=== PATIENT | female | born 1940 | race Caucasian/White ===

== ENCOUNTER 2016-07-28 15:33 | Emergency (ER) | payer MEDICARE ==
[2016-07-28 15:53] VITALS: BP 177/88
--- NOTE | 2016-07-28 16:27 | UC ---
Lower Extremity/Ankle HPI - HPI Summary HPI Summary: 27 DAYS OF RLE PAIN. HAS SEEN PCP DR. VASQUEZ AND NEUROSURG DR. GARAY. MRI L- SPINE 07/25 SHOWED MILD DDD AND OA. PT IS VERY ANXIOUS ABOUT PERSISTENT PAIN AND IS CONCERNED ABOUT DVT. DENIES FEVER, SOB, CP, NAUSEA. - History of Current Complaint Chief Complaint: UCLowerExtremity Stated Complaint: LEG PAIN Time Seen by Provider: 07/28/16 15:45 Hx Obtained From: Patient, Family/Starter Cup Powder Mixer - Onset/Duration: Gradual Onset, Lasting Weeks, Still Present Severity Initially: Moderate Severity Currently: Moderate Pain Intensity: 5 Pain Scale Used: 0-10 Numeric Aggravating Factor(s): Standing, Ambulation Alleviating Factor(s): Rest Able to Bear Weight: Yes - Allergies/Home Medications Allergies/Adverse Reactions: Allergies Allergy/AdvReac Type Severity Reaction Status Date / Time Glipizide Allergy Unknown Verified 07/28/16 15:54 Reaction Details Iodinated Diagnostic Agents Allergy Swelling Verified 07/28/16 15:54 Of Face,Lips,& Throat Pantoprazole [From Protonix] Allergy Unknown Verified 07/28/16 15:54 Reaction Details Pneumococcal Polysaccharides Allergy Unknown Verified 07/28/16 15:54 [From Pneumovax] Reaction Details Sulfa Antibiotics Allergy See Comment Verified 07/28/16 15:54 Terconazole Allergy Rash Verified 07/28/16 15:54 Metformin AdvReac Diarrhea Verified 07/28/16 15:54 Home Medications: Home Medications Hydrocodone/APAP 5/300 (NF) [Vicodin 5 MG/300 MG(NF)] 2 tab PO Q6H PRN 07/28/16 [History Confirmed 07/28/16] PMH/Surg Hx/FS Hx/Imm Hx Endocrine History Of: Reports: Diabetes, Thyroid Disease, Hypothyroidism Cardiovascular History Of: Reports: Hypertension Denies: Pacemaker/ICD GI/ History Of: Denies: Renal Disease Cancer History Of: Denies: Breast Cancer - Surgical History Surgical History: Yes Surgery Procedure, Year, and Place: HYSTERECTOMY 1988. cholecystectomy. OVARIAN CYSY 1968. BILATERAL CATARACTS PRIOR TO TRANSPLANTS. 2 CORNEAL TRANSPLANTS 2013-[place] PER DR DESHPANDE - Family History Known Family History: Negative: Blood Disorder - NO FAM H/O DVT - Social History Alcohol Use: None Substance Use Type: None Smoking Status (MU): Never Smoked Tobacco Review of Systems Constitutional: Negative Skin: Negative Respiratory: Negative Cardiovascular: Negative Gastrointestinal: Negative Musculoskeletal: Other: - RIGHT LOW BACK/BUTTOCK PAIN All Other Systems Reviewed And Are Negative: Yes Physical Exam Triage Information Reviewed: Yes Appearance: Well-Appearing, No Pain Distress, Well-Nourished Vital Signs: Initial Vital Signs Temp 97.2 F 07/28/16 15:47 Pulse 91 07/28/16 15:47 Resp 20 07/28/16 15:47 BP 177/88 07/28/16 15:47 Pulse Ox 99 07/28/16 15:47 Vital Signs Reviewed: Yes Eyes: Positive: Conjunctiva Clear ENT: Positive: Hearing grossly normal Neck: Positive: Supple Respiratory Exam: Normal Cardiovascular Exam: Normal Abdomen Description: Positive: Soft Musculoskeletal: Positive: ROM Intact, No Edema, Other: - POS RIGHT STRAIGHT LEG RAISE. POS HOMANS RLE. CALF CIRCUMFERENCE: RIGHT 33.5CM, LEFT 35CM. NO CALF TENDERNESS. LOWER EXTREMITY VARICOSITIES PRESENT Neurological: Positive: Alert Psychological: Positive: Age Appropriate Behavior Skin: Negative: rashes Lower Extremity Course/Dx - Course Course Of Treatment: PT IS EXTREMELY ANXIOUS ABOUT POSSIBILITY OF DVT AND WOULD LIKE AN US TO RULE THIS OUT. TO ER FOR FURTHER EVAL. - Differential Dx/Diagnosis Provider Diagnoses: RLE PAIN - Physician Notifications Discussed Patient Care With: DR. ISRAEL HENDERSON Time Discussed With Above Provider: 16:41 - TO [facility] [place] [facility] BY PRIVATE CAR Discharge - Discharge Plan Condition: Stable Disposition: AGAINST MEDICAL ADVICE Referrals: Jass Vasquez MD [Medical Doctor] -
== END 2016-07-28 16:43 | disposition left against medical advice (07) ==
LOC: UCEAST 15:33
DX: M79.604 Pain in right leg (principal); M54.5 Low back pain; E11.9 Type 2 diabetes mellitus without complications; E03.9 Hypothyroidism, unspecified; I10 Essential (primary) hypertension; Z90.710 Acquired absence of both cervix and uterus; Z90.49 Acquired absence of other specified parts of digestive tract; Z98.42 Cataract extraction status, left eye; Z98.41 Cataract extraction status, right eye; Z96.1 Presence of intraocular lens; Z88.2 Allergy status to sulfonamides; Z88.8 Allergy status to other drugs, medicaments and biological substances
CPT/HCPCS: 99212; G0463

== ENCOUNTER → 2016-07-28 17:09 | Emergency (ER) | payer MEDICARE ==
--- NOTE | 2016-07-28 19:37 | RAD ---
HISTORY: Right leg pain COMPARISONS: None relevant TECHNIQUE: Multiple transverse and longitudinal ultrasound images were obtained of the right lower extremity from the level of the common femoral vein inferiorly through to the infrapopliteal veins using grayscale, color Doppler, and spectral Doppler imaging with and without compression and with augmentation. Comparison images were obtained of the contralateral common femoral vein. FINDINGS: VEINS: The venous system of the right lower extremity is compressible throughout its course, with normal flow on color Doppler imaging and normal response to augmentation on spectral Doppler imaging. SOFT TISSUES: Unremarkable. OTHER FINDINGS: None. IMPRESSION: NO RIGHT LOWER EXTREMITY DEEP VEIN THROMBOSIS
[2016-07-28 20:21] VITALS: BP 144/90
--- NOTE | 2016-09-22 21:12 | ED ---
Lower Extremity - HPI Summary HPI Summary: Pt here w/ Rt leg pain. Denies injury. Nothing makes this better or worse. No skin changes. Was seen at and sent here for vascular study to r/o DVT. No h/ o previous. Denies chest pain, SOB, bloody cough, fatigue, back pain, increased heart rate, fever. She does report chronic back pain issues - follows w/ PCP. - History of Current Complaint Chief Complaint: EDExtremityLower Stated Complaint: POSSIBLE DVT RT LEG Time Seen by Provider: 07/28/16 18:58 Hx Obtained From: Patient Pain Intensity: 6 - Allergies/Home Medications Allergies/Adverse Reactions: Allergies Allergy/AdvReac Type Severity Reaction Status Date / Time Glipizide Allergy Unknown Verified 08/29/16 18:02 Reaction Details Iodinated Diagnostic Agents Allergy Swelling Verified 08/29/16 18:02 Of Face,Lips,& Throat Pantoprazole [From Protonix] Allergy Unknown Verified 08/29/16 18:02 Reaction Details Sulfa Antibiotics Allergy See Comment Verified 08/29/16 18:02 Terconazole Allergy Rash Verified 08/29/16 18:02 Metformin AdvReac Diarrhea Verified 08/29/16 18:02 PMH/Surg Hx/FS Hx/Imm Hx Previously Healthy: Yes Endocrine/Hematology History: Reports: Hx Diabetes, Hx Thyroid Disease Denies: Hx Anticoagulant Therapy, Hx Blood Disorders Cardiovascular History: Reports: Hx Hypertension Denies: Hx Pacemaker/ICD History: Denies: Hx Renal Disease Musculoskeletal History: Denies: Hx Osteoporosis Sensory History: Denies: Hx Hearing Aid Psychiatric History: Denies: Hx Panic Disorder - Cancer History Hx Chemotherapy: No Hx Radiation Therapy: No - Surgical History Surgery Procedure, Year, and Place: HYSTERECTOMY 1988. cholecystectomy. OVARIAN CYSY 1968. BILATERAL CATARACTS PRIOR TO TRANSPLANTS. 2 CORNEAL TRANSPLANTS 2013-[place] PER DR DESHPANDE Infectious Disease History: No Infectious Disease History: Denies: History Other Infectious Disease, Traveled Outside the [place] in Last 30 Days - Family History Known Family History: Negative: Blood Disorder - NO FAM H/O DVT - Social History Lives: With Family Alcohol Use: None Hx Substance Use: No Substance Use Type: Reports: None Hx Tobacco Use: No Smoking Status (MU): Never Smoked Tobacco Review of Systems Constitutional: Negative Cardiovascular: Negative Respiratory: Negative Positive: no symptoms reported Musculoskeletal: Other - see HPI Skin: Negative Neurological: Negative Psychological: Normal All Other Systems Reviewed And Are Negative: Yes Physical Exam Triage Information Reviewed: Yes Vital Signs On Initial Exam: Initial Vitals Temp Pulse Resp BP Pulse Ox 98.4 F 88 18 182/86 99 07/28/16 17:20 07/28/16 17:20 07/28/16 17:20 07/28/16 17:20 07/28/16 17:20 Vital Signs Reviewed: Yes Appearance: Positive: Well-Appearing, No Pain Distress - comfortable at rest, Obese Skin: Positive: Warm, Dry - no erythema, no eccymosis over affected area Respiratory/Lung Sounds: Positive: Breath Sounds Present Cardiovascular: Negative: Leg Edema Left, Leg Edema Right - + Colleen's sign Musculoskeletal: Positive: Normal, Strength/ROM Intact Neurological: Positive: Normal, Sensory/Motor Intact, Alert, Oriented to Person Place, Time, CN Intact II-III Psychiatric: Positive: Normal Diagnostics - Vital Signs Vital Signs Temp Pulse Resp BP Pulse Ox 07/28/16 20:20 98.3 F 77 16 144/90 07/28/16 17:20 98.4 F 88 18 182/86 99 - Laboratory Lab Statement: Any lab studies that have been ordered have been reviewed, and results considered in the medical decision making process. Lower Extremity Course/Dx - Course Course Of Treatment: Pt here w atraumatic Rt LE pain. U/S is neg for DVT and phlebitis. She has chronic back pain and is currently under w/u for more aggressive tx as needed. Her Rt LE pain could be the result of radiculopathy however she does not have weakness into this leg tonight. Reviewed danger s/sx of when to return to ED. Otherwise, will f/u w/ PCP. - Diagnoses Provider Diagnoses: Right leg pain Discharge - Discharge Plan Condition: Stable Disposition: HOME Patient Education Materials: Leg Pain (ED) Referrals: Paty Newman MD [Primary Care Provider] - Additional Instructions: Your leg pain does not appear to be the result of a clot. It may be from your back pain. It is advised that you follow-up with your PCP for further assessment and care. *If you develop weakness, change in color, swelling or intolerable pain despite medications provided, return to ED
== END | disposition home or self-care (01) ==
LOC: ED 17:09
DX: M79.604 Pain in right leg (principal); E11.9 Type 2 diabetes mellitus without complications; E07.9 Disorder of thyroid, unspecified; I10 Essential (primary) hypertension; Z88.2 Allergy status to sulfonamides; Z90.710 Acquired absence of both cervix and uterus; Z90.49 Acquired absence of other specified parts of digestive tract
CPT/HCPCS: 99281

== ENCOUNTER 2016-08-29 17:51 | Emergency (ER) | payer MEDICARE ==
[2016-08-29 18:02] VITALS: BP 158/103
--- NOTE | 2016-08-29 19:43 | UC ---
Allergic Reaction HPI - HPI Summary HPI Summary: ABOUT 4PM TODAY PT SUDDENLY FELT FLUSHED AND HOT. LOOKED IN THE MIRROR AND NOTICED FACE WAS BRIGHT RED. DENIES ANY TONGUE/LIP SWELLING. NO RESPIRATORY INVOLVEMENT. POSSIBLE SLIGHT REDNESS TO FOREARMS WELL. NOT ITCHY. NOT PAINFUL. NO NEW FOOD, LOTIONS OR DETERGENTS. STARTED MEDROL DOSE PACK FOR HER BACK PAIN YESTERDAY. HAS TAKEN MEDROL DOSE PACK IN THE PAST - 2 WEEKS AGO. - History of Current Complaint Chief Complaint: UCAllergicReaction Stated Complaint: ALLERGIC REACTION-RED FACE Time Seen by Provider: 08/29/16 19:24 Hx Obtained From: Patient, Family/Date Pitter - Onset/Duration: Sudden Onset, Lasting Hours, Still Present Severity Initially: Mild Severity Currently: Mild Pain Intensity: 0 Pain Scale Used: 0-10 Numeric Aggrevating Factor(s): Nothing Alleviating Factor(s): Nothing Associated Signs And Symptoms: Positive: Negative - Allergies/Home Medications Allergies/Adverse Reactions: Allergies Allergy/AdvReac Type Severity Reaction Status Date / Time Glipizide Allergy Unknown Verified 08/29/16 18:02 Reaction Details Iodinated Diagnostic Agents Allergy Swelling Verified 08/29/16 18:02 Of Face,Lips,& Throat Pantoprazole [From Protonix] Allergy Unknown Verified 08/29/16 18:02 Reaction Details Sulfa Antibiotics Allergy See Comment Verified 08/29/16 18:02 Terconazole Allergy Rash Verified 08/29/16 18:02 Metformin AdvReac Diarrhea Verified 08/29/16 18:02 Home Medications: Home Medications Insulin Degludec [Tresiba Flextouch] 22 units DAILY 08/29/16 [History Confirmed 08/29/16] PMH/Surg Hx/FS Hx/Imm Hx Previously Healthy: Yes - Surgical History Surgical History: Yes Surgery Procedure, Year, and Place: HYSTERECTOMY 1988. cholecystectomy. OVARIAN CYSY 1968. BILATERAL CATARACTS PRIOR TO TRANSPLANTS. 2 CORNEAL TRANSPLANTS 2013-[place] PER DR DESHPANDE - Family History Known Family History: Negative: Blood Disorder - NO FAM H/O DVT - Social History Alcohol Use: None Substance Use Type: None Smoking Status (MU): Never Smoked Tobacco Review of Systems Constitutional: Negative Skin: Other - ERYTHEMA Respiratory: Negative Cardiovascular: Negative Gastrointestinal: Negative All Other Systems Reviewed And Are Negative: Yes Physical Exam Triage Information Reviewed: Yes Appearance: Well-Appearing, No Pain Distress, Well-Nourished Vital Signs: Initial Vital Signs Temp 98.6 F 08/29/16 17:57 Pulse 58 08/29/16 17:57 Resp 18 08/29/16 17:57 BP 158/103 08/29/16 17:57 Pulse Ox 98 08/29/16 17:57 Vital Signs Reviewed: Yes Eyes: Positive: Conjunctiva Inflamed - SLIGHTLY INJECTED ENT: Positive: Hearing grossly normal Neck: Positive: Supple, Nontender, No Lymphadenopathy Respiratory Exam: Normal Cardiovascular Exam: Normal Abdomen Description: Positive: Soft Musculoskeletal: Positive: No Edema Neurological: Positive: Alert Psychological: Positive: Normal Response To Family, Age Appropriate Behavior Skin: Positive: Other - FACE CONFLUENTLY ERYTHEMATOUS. NO HIVES. NOT TENDER Allergic Reaction Course/Dx - Differential Dx/Diagnosis Provider Diagnoses: ALLERGIC REACTION Discharge - Discharge Plan Condition: Stable Disposition: HOME Prescriptions: predniSONE TAB* [Deltasone TAB*] 40 mg PO DAILY #6 tab Patient Education Materials: General Allergic Reaction (ED) Referrals: Paty Newman MD [Primary Care Provider] - 2 Days Additional Instructions: UNCLEAR TO WHAT YOU ARE REACTING. POSSIBLY AN ADDITIVE IN THE MEDROL DOSE PACK. STOP THIS MEDICINE. WILL GIVE PREDNISONE FOR 3 DAYS. WATCH GLUCOSE CLOSELY. GO TO ER WITHOUT FAIL IF YOUR SYMPTOMS WORSEN OR IF YOU DEVELOP SHORTNESS OF BREATH , TONGUE/LIP SWELLING, FEVER OR ANY OTHER CONCERNING SYMPTOMS. FOLLOW-UP WITH YOUR PCP.
== END 2016-08-29 20:00 | disposition home or self-care (01) ==
LOC: UCEAST 17:51
DX: T78.40XA Allergy, unspecified, initial encounter (principal); Z88.2 Allergy status to sulfonamides; Z79.4 Long term (current) use of insulin
CPT/HCPCS: 99212; G0463

== ENCOUNTER 2017-02-28 23:03 | Emergency (ER) | payer MEDICARE, OTHER ==
--- OUTSIDE RECORDS SUMMARY | 2017-02-28 23:52 | XMS REPORT ---
:1940 External Reference #:[id number] Author Organization [facility] Address [address] [address] Phone [phone] Care Team Providers Name Role Phone Paty Newman MD Primary Care Physician Unavailable Payers Type Date Identification Numbers Payment Provider Subscriber Medicare Primary Expires: Policy Number: Medicare Marcos Johnston 2016 [id number] PayID: [id number] [address] [place] [address] Medigap Part B Policy Number: [id number] [employer] Marcos Johnston Group Number: [id number] [address] PayID: [id number] [place] [address] Mediong Part B Expires: 2016 Policy Number: [employer] Saad Johnston [id number] Group Number: [id number] [address] PayID: [id number] [place] [address] Problems Date Description Provider Status Onset: 05/24/2009 Type 2 diabetes mellitus Paty Newman M.D. Active Onset: 06/17/2011 Benign essential hypertension Paty Newman M.D. Active Onset: 06/17/2011 Gastroesophageal reflux disease Paty Newman M.D. Active Onset: 02/10/2015 Essential hypertension Paty Newman M.D. Active Onset: 01/17/2017 Disorder of shoulder Rosalba Rome MD Active Family History Date Family Member(s) Problem(s) Comments General Cancer General Heart Problems General Hypertension General Arthritis General Arthritis, Osteo General Niece with Crohn's : (age Father due to CHF colon CA at age 72 89 Years) : (age Mother due to Unknown Crohn's disease, valvular 90 Years) Causes heart disease, fracture First Brother Hypertension OA, still works First Brother Prostate Cancer Arie 7 First Sister Alzheimer's Disease still living independently Social History Type Date Description Comments Marital Status Lives With 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 Saad Johnston Cigarette Use Never Smoked Cigarettes ETOH Use Denies alcohol use Smoking Patient has never smoked Recreational Drug Use Denies Drug Use Exercise Type/Frequency Exercises regularly General Hx Text Health Care Proxy: has one Allergies, Adverse Reactions, Alerts Date Description Reaction Status Severity Comments 05/24/2009 Sulfa low platelets, liver active Severe damage 05/24/2009 Metformin Nausea and Vomiting active Moderate 07/03/2009 Pneumovax reddness active Moderate 07/03/2009 contrast dye Urticaria active Severe 07/03/2009 Protonix Nausea and Vomiting active Moderate to Severe 09/20/2011 Terconazole Severe Burning active 08/26/2012 Glipizide diarrhea active 01/17/2017 Betadine active Medications Medication Date Status Form Strength Qnty SIG Indications Ordering Provider Prednisone 02/15 Active Tablets 20mg 30tab Please take M35.3 s 3 tabs daily Tab, for 2 days M.D. then 2 tabs daily for 2 days then 1 tabs daily for 2 days then stop Folic Acid 01/10 Active Tablets 1mg 90tab take one s capsule/tabl Tab, et daily by M.D. mouth Etodolac 01/10 Active Capsules 200mg 60cap take 1 by s mouth twice Tab, daily M.D. Meloxicam 12/12 Active Tablets 7.5mg 60tab take one tab M35.3 s twice daily Tab, as needed M.D. for pain, avoid other nsaids Hydrocodone-Acet 10/02 Active Tablets 5-325mg 75tab 1 by mouth Paty aminophen s up to 3 Cotton, times daily M.D. as needed Tramadol HCL 07/04 Active Tablets 50mg 30tab 1 tablet M54.5 Yulissa s three to Varn, N.P. four times daily as needed Voltaren 02/12 Active Gel 1% 100gm apply 3 M15.2 Paty /2016 times daily Trent, as needed Lewis.DMaria C Synthroid 11/02 Active Tablets 75mcg 90tab take 1 Paty s tablet daily Marquis Newman Lisinopril 08/03 Active Tablets 10mg 90tab take one E11.9 Paty s tablet by Cotton, mouth every M.DMaria C day Potassium 07/09 Active Capsules 10Meq 90cap 1 by mouth Paty Chloride ER ER s every day Marquis Newman Accu-Chek 03/20 Active Strips 204un use to test 250.02 Paty Compact Test its twice daily Jayme Newman M.D. Pantoprazole 02/14 Active Tablets 40mg 90tab take [address] s tablet daily Marquis Newman Glucometer 01/18 Active Liquid For use once E11.9 Paty /2011 daily Marquis Newman Amlodipine 06/29 Active Tablets 2.5mg 90tab take 1 Paty Besylate s tablet daily Marquis Newman Test Strips Active 100un for use once Paty /0000 its daily Marquis Newman Vit B12 Active 500mg qod Unknown / Glimiperide Active Tablets 4mg ( Not Taking E11.9 Unknown /0000 )1 PO bid Crestor Active Tablets 5mg 45tab take 1 Paty / s tablet every Cotton, other day M.DMaria C Probiotic Active Capsules 1 by mouth Unknown /0000 every day Tresiba Active Solution 100Unit/M ( Jass Fuentes Flextouch /0000 Pen-Injec L Scale) 28-32 t units at bedtime Cyclobenzaprine Active Tablets 5mg take one Unknown HCL /0000 tablet by mouth bid . Novolog Active Solution 100Unit/M ( Jass Fuentes, /0000 L Scale) MD inject 5 units tid Prednisone 02/15 Hx Tablets 10mg 30tab take 4 tabs s by mouth Tab, - daily for 2 M.D. 02/15 days then tabs daily for 2 days then 2 tabs for 2 days then 1 tab for 2 days then d/c Methotrexate 01/10 Hx Tablets 2.5mg 30tab take 4 M54.5 s capsules/tab Tab, - lets by M.D. 01/10 mouth once weekly on Saturdays Prednisone 12/24 Hx Tablets 5mg 45tab Please take s 4 tabs Tab, - daily, taper M.D. 01/10 by 5 mg /2016 every 4 days until finished Medrol 08/28 Hx TBPK 4mg 21uni 6 by mouth M54.9 ts day 1, 5 by Cotton, - mouth day 2, M.D. 09/12 4 by mouth /2016 day 3, 3 by mouth day 4, 2 by mouth day 5, 1 by mouth day 6 Medrol 08/03 Hx TBPK 4mg 21uni 6 by mouth M54.5 ts day 1, 5 by Varn, N.P. - mouth day 2, 08/09 4 by mouth /2016 day 3, 3 by mouth day 4, 2 by mouth day 5, 1 by mouth day 6 Ibuprofen 08/03 Hx Tablets 600mg 60tab 1 by mouth M54.5 s every 6 Varn, N.P. - hours as 01/10 needed pain Ativan 07/16 Hx Tablets 2mg 2tabs take one .16 tablet by Vero, - mouth 30 M.D. before mri, may repeat at the time of mri. Vicodin 07/12 Hx Tablets 5-300mg 60tab take 1 by s mouth every Cotton, - 6 hours as M.D. 10/02 needed Nystatin 02/12 Hx Cream [id number] 60uni aply 3 times 112.3 t/GM ts daily until Cotton, - rash clears M.D. 07/04 Estrace 01/06 Hx Cream 0.1mg/GM 42.50 apply twice N77.1 0gm a week Trent, - M.D. 02/10 Fluconazole 12/23 Hx Tablets 150mg 2tabs one by mouth July repeat Varn, N.P. - in 3 days as 01/06 needed Ciprofloxacin 12/20 Hx Tablets 250mg 14tab one by mouth N39.0 s twice a day Varn, N.P. - for 7 days 12/27 Gyne-Lotrimin 3 12/16 Hx Cream 2% 21gm Apply bid Trent - M.D. 01/06 Diflucan 12/15 Hx Tablets 150mg 2tabs 1 tablet one time. july Trent, - repeat 3 M.D. 12/15 days later if needed Azithromycin 12/15 Hx Tablets 250mg 6tabs two tabs day J20.9 one, one Varn, N.P. - daily till 12/19 Benzonatate 12/08 Hx Capsules 200mg 30cap take 1 s capsule by Cotton, - mouth three M.D. 02/10 times a day if needed Ciprofloxacin 11/18 Hx Tablets 250mg 6tabs take one 788.1 Lucas HCL tablet twice Flores [employer] - a day for 3 01/13 more days. Fluconazole 11/18 Hx Tablets 150mg 2tabs one by mouth 788.1 Lucas July repeat Flores [employer] - in 3 days as 02/08 needed ( localzed burning to tercanozole, has never had a problem with fluconazole) Hydrocortisone 03/24 Hx Cream 2.5-1% 28.40 apply once 455.6 Paty Acetate/Pramoxin 0gm daily as Trent e - needed M.D. 02/08 Nystatin 10/29 Hx Cream [id number] 60uni aply 3 times 112.3 t/GM ts daily until Varn, N.P. - rash clears 12/28 Glipizide 08/14 Hx Tablets 5mg 60tab 1 PO before 250.00 s breakfast Trent, - and 1 PO M.D. 08/26 dinner Estrace 08/14 Hx Cream 0.1mg/GM 42.50 0.5 gm to 599.0 0gm perineum hs Cotton, - 2 times M.D. 02/03 weekly pr Ciprofloxacin 07/17 Hx Tablets 250mg 6tabs 1 tab by 788.1 Kaylie HCL mouth twice Ceci, - a day M.D., FACP 08/14 Glimepiride 03/20 Hx Tablets 2mg 60tab Take 2 250.00 s Tablets By Cotton, - Mouth Once M.D. 08/14 Daily In Morning Glimepiride 01/13 Hx Tablets 1mg 45tab 1 and 03/05 250.00 s tablets once Cotton, - daily in the M.D. 03/20 Fluconazole 09/19 Hx Tablets 150mg 2tabs one by mouth July repeat Varn, N.P. - in 3 days as 03/07 Terconazole 09/18 Hx Cream 0.8% 20gm 1 applicator 112.1 intravaginal Varn, N.P. - ly hs for 3 09/19 Clotrimazole/Bet 09/18 Hx Cream 1-0.05% 15gm apply 2 - 3 112.1 amethasone times daily Varn, N.P. Dipropionate - as needed 09/25 Diflucan 09/09 Hx Tablets 150mg 2tabs sig 1 po repeat in 3 , - days if M.D. 09/18 Macrobid 08/26 Hx Capsules 100mg 14cap 1 tab po bid s x 7 days Trent, - M.D. 09/18 Ciprofloxacin 08/20 Hx Tablets 250mg 14tab 1 po bid for 599.0 Paty HCL s 7 days [place], - M.D. 08/26 Doxycycline 06/18 Hx Capsules 100mg 20cap one po every 680.8 Paty Hyclate s 12 hours for Cotton, - 10 days M.D. 06/28 Accu-Chek 02/01 Hx Strips 1unit Use To Test Paty Compact Test s Once Daily Jayme Newman - M.DMraia C 07/04 Prandin 10/26 Hx Tablets 0.5mg 360ta Take 1 250.00 bs Tablet Three Cotton, - Times A Day M.D. 01/13 Before Meals Januvia 10/26 Hx Tablets 100mg 90tab Take 1 250.00 Paty s Tablet Daily Cotton, - M.D. 08/14 Potassium 10/05 Hx Tablets 8Meq 30tab 1 tablet by Paty Chloride ER s mouth once Cotton, - daily M.D. 01/18 Ranitidine HCL 09/25 Hx Tablets 150mg 60tab take one 530.81 Paty s tablet by Cotton, - mouth twice M.D. 10/26 a Metformin HCL 06/29 Hx Tablets 500mg 15tab / tablet 250.00 Paty s once daily Cotton, - in evening M.D. 10/16 Lisinopril 06/29 Hx Tablets 5mg 90tab take 1 250.00 s tablet daily Cotton, - M.D. 08/03 Amlodipine 04/18 Hx 5mg. 1 tablet by mouth daily - 06/29 Omeprazole 02/06 Hx Capsules 20mg 30cap [address] bone once daily Ceci, - M.D., FACP 03/30 Prandin 12/20 Hx Tablets 1mg 270ta 1tablet bs threee times Cotton, - daily 30 M.D. before meals Levothyroxine 05/24 Hx Tablets 75mcg 90tab take 1 s tablet daily Cotton, - M.D. 11/02 Prandin Hx Tablets 0.5mg 270ta 1 tablet 3 Paty /0000 bs times daily Cotton, - before meals M.D. 12/20 Amlodipine Hx Tablets 2.5mg 90tab 1 tablet Unknown Besylate / s once valerio;y - 04/18 Lisinopril 00 Hx Tablets 40mg 90tab 1 tablet Paty /0000 s orally once Cotton, - daily M.D. 04/18 Amlodipine 00 Hx 5mg. 1 tablet by Unknown / mouth daily - 04/18 Valium Hx Tablets 5mg 10tab 1 by mouth Paty /0000 s every day as Cotton, - needed M.D. 10/11 spasm Nitrostat 00/00 Hx Tablets 0.4mg 25tab one sl q5min Paty /0000 Sub s up to 3 Cotton, - doses prn M.D. 10/11 Omeprazole Hx Capsules 20mg 90cap Take 1 530.81 Paty /0000 DR s Capsule Cotton, - Daily M.D. 02/14 Glimepiride 0000 Hx Tablets 2mg 90tab Take 4 250.00 Unknown /0000 s Tablets By - Mouth bid 02/03 Atenolol 0000 Hx Tablets 25mg 90tab Take 1 Paty /0000 s Tablet Once Cotton, - Daily M.D. 07/08 Lantus Solostar Hx Solution 100Unit/M 15ml inject 28 Unknown /0000 L units - subcutaneous 07/04 ly at /2016 bedtime Ibuprofen Hx Tablets 200mg 1-2 tabs bid M35.3 Unknown /0000 as needed - 12/12 Medications Administered in Office Medication Date Status Form Strength Qnty SIG Indications Ordering Provider Triamcinolone 01/17/ Administered Injection Zaneb (Kenalog) 2016 MD Latricia Triamcinolone 11/06/ Administered Injection Марина (Kenalog) 2016 ELDER Mckeon Depomedrol 40MG 03/08/ Administered Injection Meg 2016 Marquis Rice Depomedrol 40MG 10/12/ Administered Injection Meg 2015 Marquis Rice Depomedrol 40MG 04/21/ Administered Injection Meg 2016 Marquis Rice Depomedrol 40MG 10/25/ Administered Injection Meg 2014 Marquis Rice Immunizations CPT Code Status Date Vaccine Lot # [id number] Given 11/29/2016 Fluzone High Dose Q2039 Given 11/22/2015 Flu Vaccine NOS 24269 Given 11/16/2014 Fluzone High Dose 93788 Given 02/08/2014 Pneumococcal Conjugate Vaccine 13 Valent For [id number] Intramuscular Use 55318 Given 11/24/2013 Fluzone High Dose 82183 Given 11/12/2012 Fluzone High Dose Q2038 Given 10/30/2011 Fluzone Vaccine [id number] 23805 Given 12/04/2010 Influenza Virus 3Yrs & Over 24434 Given 02/17/2009 Influenza Virus Vaccine, Pandemic Formulation 16917 Given 12/13/2008 Influenza Virus 3Yrs & Over 22104 Given 12/18/2007 Influenza Virus 3Yrs & Over Vital Signs Date Vital Result Comment 02/19/2017 Heart Rate 90 /min BP Systolic Sitting 150 mmHg BP Diastolic Sitting 90 mmHg Respiratory Rate 18 /min Body Temperature 96.9 F 02/15/2017 Height 62.5 inches 5'2.50" Weight 161.50 lb Heart Rate 81 /min BP Systolic 120 mmHg BP Diastolic 70 mmHg Body Temperature 97.2 F O2 % BldC Oximetry 98 % BMI (Body Mass Index) 29.1 kg/m2 01/29/2017 Height 62.5 inches 5'2.50" Weight 160.00 lb Heart Rate 80 /min BP Systolic Sitting 176 mmHg BP Diastolic Sitting 96 mmHg BP Systolic Recheck 130 mmHg BP Diastolic Recheck 90 mmHg Respiratory Rate 14 /min Pain Level 1 BMI (Body Mass Index) 28.8 kg/m2 01/17/2017 Height 62.5 inches 5'2.50" Weight 159.00 lb BP Systolic 128 mmHg BP Diastolic 74 mmHg Respiratory Rate 20 /min Pain Level 8 BMI (Body Mass Index) 28.6 kg/m2 12/13/2016 Height 62.5 inches 5'2.50" Weight 159.00 lb BP Systolic 122 mmHg BP Diastolic 70 mmHg Respiratory Rate 20 /min Pain Level 4 BMI (Body Mass Index) 28.6 kg/m2 12/12/2016 Height 62.50 inches 5'2.50" Weight 159.12 lb Heart Rate 80 /min BP Systolic Sitting 150 mmHg BP Diastolic Sitting 90 mmHg Respiratory Rate 14 /min Pain Level 3 BMI (Body Mass Index) 28.6 kg/m2 11/06/2016 Height 62.50 inches 5'2.50" Weight 161.00 lb Heart Rate 104 /min BP Systolic 138 mmHg BP Diastolic 78 mmHg Respiratory Rate 18 /min Body Temperature 97.3 F Pain Level 9 BMI (Body Mass Index) 29.0 kg/m2 10/19/2016 Height 62.50 inches 5'2.50" Weight 161.00 lb Heart Rate 91 /min BP Systolic 132 mmHg BP Diastolic 64 mmHg Body Temperature 97.8 F O2 % BldC Oximetry 98 % BMI (Body Mass Index) 29.0 kg/m2 10/09/2016 Height 62.50 inches 5'2.50" Weight 164.00 lb Heart Rate 94 /min BP Systolic 150 mmHg BP Diastolic 80 mmHg Body Temperature 98.0 F O2 % BldC Oximetry 97 % BMI (Body Mass Index) 29.5 kg/m2 08/28/2016 Weight 164.00 lb Heart Rate 68 /min BP Systolic 166 mmHg BP Diastolic 92 mmHg Respiratory Rate 16 /min 08/13/2016 Weight 165.75 lb Heart Rate 73 /min BP Systolic 132 mmHg BP Diastolic 58 mmHg Body Temperature 96.3 F O2 % BldC Oximetry 97 % 08/06/2016 Heart Rate 77 /min BP Systolic Sitting 164 mmHg BP Diastolic Sitting 80 mmHg Pain Level 3 lower back, legs 08/03/2016 Weight 165.00 lb Heart Rate 71 /min BP Systolic 128 mmHg BP Diastolic 66 mmHg Body Temperature 97.0 F O2 % BldC Oximetry 97 % 07/16/2016 Height 61.5 inches 5'1.50" Weight 163.00 lb Heart Rate 84 /min BP Systolic Sitting 128 mmHg BP Diastolic Sitting 8 mmHg Pain Level 8 BMI (Body Mass Index) 30.3 kg/m2 07/04/2016 Weight 163.00 lb Heart Rate 78 /min BP Systolic Sitting 144 mmHg BP Diastolic Sitting 78 mmHg Body Temperature 97.7 F Pain Level 9 lower back & R leg O2 % BldC Oximetry 99 % 03/08/2016 Height 61.5 inches 5'1.50" Weight 162.00 lb Pain Level 8 BMI (Body Mass Index) 30.1 kg/m2 02/13/2016 Height 61.5 inches 5'1.50" Weight 162.00 lb Heart Rate 83 /min BP Systolic Sitting 132 mmHg BP Diastolic Sitting 80 mmHg Respiratory Rate 15 /min Body Temperature 98.0 F O2 % BldC Oximetry 98 % BMI (Body Mass Index) 30.1 kg/m2 10/13/2015 Height 62.5 inches 5'2.50" Weight 162.00 lb Heart Rate 64 /min Respiratory Rate 16 /min Pain Level 5 BMI (Body Mass Index) 29.2 kg/m2 08/11/2015 Height 62.5 inches 5'2.50" Weight 159.00 lb Heart Rate 84 /min BP Systolic Sitting 132 mmHg BP Diastolic Sitting 80 mmHg Respiratory Rate 15 /min Body Temperature 98.0 F O2 % BldC Oximetry 98 % BMI (Body Mass Index) 28.6 kg/m2 04/21/2015 Height 62.5 inches 5'2.50" Weight 158.00 lb Pain Level 5 BMI (Body Mass Index) 28.4 kg/m2 02/10/2015 Height 61.5 inches 5'1.50" Weight 160.00 lb Heart Rate 93 /min BP Systolic Sitting 141 mmHg BP Diastolic Sitting 84 mmHg Body Temperature 97.9 F O2 % BldC Oximetry 96 % BMI (Body Mass Index) 29.7 kg/m2 01/06/2015 Weight 158.50 lb Heart Rate 86 /min BP Systolic Sitting 142 mmHg BP Diastolic Sitting 80 mmHg Body Temperature 96.4 F Pain Level 2 O2 % BldC Oximetry 97 % 12/20/2014 Weight 159.50 lb Heart Rate 78 /min BP Systolic Sitting 155 mmHg BP Diastolic Sitting 89 mmHg Body Temperature 97.2 F O2 % BldC Oximetry 978 % 12/15/2014 Weight 161.00 lb Heart Rate 77 /min BP Systolic Sitting 171 mmHg BP Diastolic Sitting 81 mmHg Body Temperature 96.9 F O2 % BldC Oximetry 99 % 10/25/2014 Height 62.5 inches 5'2.50" Weight 158.00 lb Heart Rate 82 /min BP Systolic Sitting 150 mmHg BP Diastolic Sitting 94 mmHg Pain Level 6 At Times BMI (Body Mass Index) 28.4 kg/m2 10/04/2014 Weight 158.75 lb Heart Rate 80 /min BP Systolic Sitting 137 mmHg BP Diastolic Sitting 81 mmHg 05/11/2014 Height 62 inches 5'2" Weight 158.00 lb Heart Rate 80 /min BP Systolic 140 mmHg BP Diastolic 74 mmHg BP Systolic Sitting 140 mmHg Right; 150/82 left BP Diastolic Sitting 82 mmHg Right; 150/82 left Body Temperature 97.4 F BMI (Body Mass Index) 28.9 kg/m2 02/08/2014 Height 62 inches 5'2" Weight 159.00 lb Heart Rate 78 /min BP Systolic 148 mmHg BP Diastolic 72 mmHg Body Temperature 97.7 F BMI (Body Mass Index) 29.1 kg/m2 01/14/2014 Weight 159.25 lb Heart Rate 89 /min BP Systolic Sitting 128 mmHg BP Diastolic Sitting 72 mmHg Body Temperature 97.0 F O2 % BldC Oximetry 98 % 11/18/2013 Weight 156.00 lb Heart Rate 98 /min BP Systolic Sitting 138 mmHg BP Diastolic Sitting 72 mmHg Body Temperature 97.3 F 10/23/2013 Height 62.25 inches 5'2.25" Weight 157.00 lb Heart Rate 68 /min BP Systolic Sitting 122 mmHg BP Diastolic Sitting 68 mmHg Body Temperature 98.0 F BMI (Body Mass Index) 28.5 kg/m2 07/08/2013 Height 62.25 inches 5'2.25" Weight 156.00 lb Heart Rate 72 /min BP Systolic Sitting 122 mmHg BP Diastolic Sitting 70 mmHg Body Temperature 96.5 F BMI (Body Mass Index) 28.3 kg/m2 06/04/2013 Weight 157.00 lb Heart Rate 60 /min irregular BP Systolic Sitting 160 mmHg 150/90 L arm BP Diastolic Sitting 80 mmHg 150/90 L arm 03/24/2013 Weight 156.50 lb Heart Rate 62 /min BP Systolic Sitting 180 mmHg BP Diastolic Sitting 84 mmHg 02/03/2013 Height 62.5 inches 5'2.50" Weight 152.00 lb Heart Rate 72 /min BP Systolic Sitting 122 mmHg BP Diastolic Sitting 78 mmHg BMI (Body Mass Index) 27.4 kg/m2 10/29/2012 Weight 154.00 lb Heart Rate 74 /min BP Systolic Sitting 126 mmHg BP Diastolic Sitting 76 mmHg Body Temperature 97.2 F 09/29/2012 Weight 155.00 lb Heart Rate 72 /min BP Systolic Sitting 128 mmHg BP Diastolic Sitting 80 mmHg 08/14/2012 Weight 157.00 lb Heart Rate 64 /min BP Systolic Sitting 128 mmHg BP Diastolic Sitting 70 mmHg 07/17/2012 Weight 156.00 lb Heart Rate 76 /min BP Systolic Sitting 128 mmHg BP Diastolic Sitting 80 mmHg Body Temperature 97.3 F 04/28/2012 Height 62 inches 5'2" Weight 156.00 lb Heart Rate 78 /min BP Systolic Sitting 122 mmHg BP Diastolic Sitting 80 mmHg BMI (Body Mass Index) 28.5 kg/m2 03/20/2012 Height 62 inches 5'2" Weight 156.00 lb Heart Rate 70 /min BP Systolic Sitting 130 mmHg BP Diastolic Sitting 82 mmHg BMI (Body Mass Index) 28.5 kg/m2 03/07/2012 Height 62 inches 5'2" Heart Rate 60 /min BP Systolic Sitting 130 mmHg BP Diastolic Sitting 70 mmHg Body Temperature 97.4 F 02/15/2012 Height 62 inches 5'2" Weight 156.00 lb Heart Rate 72 /min BP Systolic Sitting 128 mmHg BP Diastolic Sitting 76 mmHg BMI (Body Mass Index) 28.5 kg/m2 01/14/2012 Height 62 inches 5'2" Weight 157.00 lb Heart Rate 70 /min BP Systolic Sitting 120 mmHg BP Diastolic Sitting 68 mmHg BMI (Body Mass Index) 28.7 kg/m2 10/30/2011 Height 62 inches 5'2" Weight 157.00 lb Heart Rate 72 /min BP Systolic Sitting 160 mmHg BP Diastolic Sitting 94 mmHg BMI (Body Mass Index) 28.7 kg/m2 10/11/2011 Height 62 inches 5'2" Weight 155.00 lb Heart Rate 70 /min BP Systolic Sitting 128 mmHg BP Diastolic Sitting 76 mmHg BMI (Body Mass Index) 28.3 kg/m2 09/19/2011 Height 62 inches 5'2" Weight 158.00 lb Heart Rate 64 /min BP Systolic Sitting 134 mmHg BP Diastolic Sitting 74 mmHg Body Temperature 97.9 F BMI (Body Mass Index) 28.9 kg/m2 08/21/2011 Height 62 inches 5'2" Weight 159.00 lb Heart Rate 72 /min BP Systolic Sitting 130 mmHg BP Diastolic Sitting 84 mmHg Body Temperature 97.4 F BMI (Body Mass Index) 29.1 kg/m2 07/05/2011 Height 62 inches 5'2" Weight 156.00 lb Heart Rate 70 /min BP Systolic Sitting 132 mmHg BP Diastolic Sitting 80 mmHg BMI (Body Mass Index) 28.5 kg/m2 06/19/2011 Height 62 inches 5'2" Weight 160.00 lb Heart Rate 68 /min BP Systolic Sitting 118 mmHg BP Diastolic Sitting 68 mmHg BMI (Body Mass Index) 29.3 kg/m2 04/17/2011 Height 62 inches 5'2" Weight 160.00 lb Heart Rate 72 /min BP Systolic Sitting 124 mmHg BP Diastolic Sitting 76 mmHg BMI (Body Mass Index) 29.3 kg/m2 01/18/2011 Height 62 inches 5'2" Weight 161.00 lb Heart Rate 74 /min BP Systolic Sitting 114 mmHg BP Diastolic Sitting 70 mmHg BMI (Body Mass Index) 29.4 kg/m2 10/26/2010 Height 62 inches 5'2" Weight 162.00 lb Heart Rate 60 /min BP Systolic Sitting 120 mmHg BP Diastolic Sitting 80 mmHg Body Temperature 97.9 F BMI (Body Mass Index) 29.6 kg/m2 10/16/2010 Height 62 inches 5'2" Weight 161.00 lb Heart Rate 60 /min BP Systolic Sitting 124 mmHg BP Diastolic Sitting 82 mmHg BMI (Body Mass Index) 29.4 kg/m2 09/25/2010 Height 62 inches 5'2" Weight 164.00 lb Heart Rate 60 /min BP Systolic Sitting 130 mmHg BP Diastolic Sitting 70 mmHg BMI (Body Mass Index) 30.0 kg/m2 08/04/2010 Height 62 inches 5'2" Weight 163.00 lb Heart Rate 78 /min BP Systolic Sitting 124 mmHg BP Diastolic Sitting 80 mmHg BMI (Body Mass Index) 29.8 kg/m2 06/29/2010 Weight 165.00 lb Heart Rate 64 /min BP Systolic 152 mmHg BP Diastolic 78 mmHg 04/18/2010 Weight 166.50 lb Heart Rate 60 /min BP Systolic 126 mmHg BP Diastolic 70 mmHg 03/30/2010 Height 62.5 inches 5'2.50" Weight 167.00 lb Heart Rate 78 /min BP Systolic 126 mmHg BP Diastolic 88 mmHg BMI (Body Mass Index) 30.1 kg/m2 02/06/2010 Weight 167.50 lb Heart Rate 68 /min BP Systolic 128 mmHg BP Diastolic 70 mmHg 12/20/2009 Weight 166.00 lb Heart Rate 70 /min BP Systolic 136 mmHg BP Diastolic 74 mmHg 09/16/2009 Weight 166.75 lb Heart Rate 64 /min BP Systolic 132 mmHg BP Diastolic 72 mmHg 07/05/2009 Weight 165.75 lb Heart Rate 60 /min BP Systolic Recheck 128 mmHg BP Diastolic Recheck 60 mmHg Results Test Date Test Result H/L Range Note Laboratory test finding 02/15/2017 Erythrocyte Sed Rate 23 mm/Hr 0-40 C Reactive Protein 13.18 mg/L High < 5.00 1 Lipid Profile (Trig/Chol/HDL) 02/11/2017 Triglycerides 88 mg/dL 2 Cholesterol 145 mg/dL 3 HDL Cholesterol 66.1 mg/dL 4 LDL Cholesterol 61 mg/dL 5 Urine Microalbumin Random 02/11/2017 Ur Microalbumin (mg/L) 36.2 mg/L Urine Creatinine 120.07 mg/dL Urine Microalbumin/Creatinine 30.1 ug/mg <31 Comp Metabolic Panel 02/11/2017 Sodium 140 mmol/L 133-145 Potassium 3.8 mmol/L 3.5-5.0 Chloride 105 mmol/L 101-111 Co2 Carbon Dioxide 29 mmol/L 22-32 Anion Gap 6 mmol/L 2-11 Glucose 131 mg/dL High 70-100 Blood Urea Nitrogen 14 mg/dL 6-24 Creatinine 0.77 mg/dL 0.51-0.95 BUN/Creatinine Ratio 18.2 8-20 Calcium 9.5 mg/dL 8.6-10.3 Total Protein 6.6 g/dL 6.4-8.9 Albumin 3.9 g/dL 3.2-5.2 Globulin 2.7 g/dL 2-4 Albumin/Globulin Ratio 1.4 1-3 Total Bilirubin 0.70 mg/dL 0.2-1.0 Alkaline Phosphatase 102 U/L 34-104 Alt 29 U/L 7-52 Ast 18 U/L 13-39 Egfr Non- 72.3 >60 Egfr 93.0 >60 6 Laboratory test finding 02/11/2017 Erythrocyte Sed Rate <pending> C Reactive Protein <pending> Alkaline Phos Isoenzymes 02/11/2017 Alkaline Phosphatase 106 U/L 55 - 142 Alp Liver 1% 49.6 % 27.8-76.3 Alp Liver 1 52.6 IU/L 16.2-70.2 Alp Liver 2% 10.5 % 0.0-8.0 Alp Liver 2 11.1 IU/L 0.0-5.8 Alp Bone % 27.3 % 19.1-67.7 Alp Bone 28.9 IU/L 12.1-42.7 Alp Intestine % 12.6 % 0.0-20.6 Alp Intestine 13.4 IU/L 0.0-11.0 Alp Placental NotPresent 7 Laboratory test finding 01/25/2017 Erythrocyte Sed Rate 13 mm/Hr 0-40 8 C Reactive Protein 2.84 mg/L < 5.00 9 CBC Auto Diff 01/25/2017 White Blood Count 8.6 10^3/uL 3.5-10.8 Red Blood Count 5.21 10^6/uL 4.0-5.4 Hemoglobin 15.6 g/dL 12.0-16.0 Hematocrit 47 % 35-47 Mean Corpuscular Volume 90 fL 80-97 Mean Corpuscular Hemoglobin 30 pg 27-31 Mean Corpuscular HGB Conc 33 g/dL 31-36 Red Cell Distribution Width 15 % 10.5-15 Platelet Count 213 10^3/uL 150-450 Mean Platelet Volume 7 um3 Low 7.4-10.4 Abs Neutrophils 6.5 10^3/uL 1.5-7.7 Abs Lymphocytes 1.4 10^3/uL 1.0-4.8 Abs Monocytes 0.6 10^3/uL 0-0.8 Abs Eosinophils 0.1 10^3/uL 0-0.6 Abs Basophils 0.1 10^3/uL 0-0.2 Abs Nucleated RBC 0 10^3/uL Granulocyte % 75.8 % 38-83 Lymphocyte % 16.2 % Low 25-47 Monocyte % 6.8 % 1-9 Eosinophil % 0.6 % 0-6 Basophil % 0.6 % 0-2 Nucleated Red Blood Cells % 0 Comp Metabolic Panel 01/25/2017 Sodium 138 mmol/L 133-145 Potassium 3.7 mmol/L 3.5-5.0 Chloride 103 mmol/L 101-111 Co2 Carbon Dioxide 27 mmol/L 22-32 Anion Gap 8 mmol/L 2-11 Glucose 204 mg/dL High 70-100 Blood Urea Nitrogen 20 mg/dL 6-24 Creatinine 0.92 mg/dL 0.51-0.95 BUN/Creatinine Ratio 21.7 High 8-20 Calcium 9.0 mg/dL 8.6-10.3 Total Protein 6.5 g/dL 6.4-8.9 Albumin 4.0 g/dL 3.2-5.2 Globulin 2.5 g/dL 2-4 Albumin/Globulin Ratio 1.6 1-3 Total Bilirubin 0.60 mg/dL 0.2-1.0 Alkaline Phosphatase 114 U/L High 34-104 Alt 30 U/L 7-52 Ast 19 U/L 13-39 Egfr Non- 59.0 >60 Egfr 75.9 >60 10 Laboratory test finding 12/12/2016 Erythrocyte Sed Rate 33 mm/Hr 0-40 11 C Reactive Protein 11.32 mg/L High < 5.00 12 Basic Metabolic Panel 12/12/2016 Sodium 139 mmol/L 133-145 Potassium 4.0 mmol/L 3.5-5.0 Chloride 104 mmol/L 101-111 Co2 Carbon Dioxide 27 mmol/L 22-32 Anion Gap 8 mmol/L 2-11 Glucose 169 mg/dL High 70-100 Blood Urea Nitrogen 13 mg/dL 6-24 Creatinine 0.79 mg/dL 0.51-0.95 BUN/Creatinine Ratio 16.5 8-20 Calcium 9.6 mg/dL 8.6-10.3 Egfr Non- 70.4 >60 Egfr 90.5 >60 13 Laboratory test finding 11/06/2016 Nuclear AB (Jane) By <1:80 (Negative) 14 Ifa Igg Rheumatoid Factor <15 IU/mL <15 15 Cyclic Citrullinated Pep Igg <15.6 U 16 Comp Metabolic Panel 11/06/2016 Sodium 137 mmol/L 133-145 Potassium 3.8 mmol/L 3.5-5.0 Chloride 102 mmol/L 101-111 Co2 Carbon Dioxide 26 mmol/L 22-32 Anion Gap 9 mmol/L 2-11 Glucose 247 mg/dL High 70-100 Blood Urea Nitrogen 12 mg/dL 6-24 Creatinine 0.74 mg/dL 0.51-0.95 BUN/Creatinine Ratio 16.2 8-20 Calcium 9.2 mg/dL 8.6-10.3 Total Protein 6.9 g/dL 6.4-8.9 Albumin 3.8 g/dL 3.2-5.2 Globulin 3.1 g/dL 2-4 Albumin/Globulin Ratio 1.2 1-3 Total Bilirubin 0.40 mg/dL 0.2-1.0 Alkaline Phosphatase 95 U/L 34-104 Alt 11 U/L 7-52 Ast 14 U/L 13-39 Egfr Non- 75.9 >60 Egfr 97.6 >60 17 Laboratory test finding 11/01/2016 C Reactive Protein 38.09 mg/L High &lt ; 5.00 18 Erythrocyte Sed Rate 64 mm/Hr High 0-40 Laboratory test finding 11/01/2016 Lyme Disease Serology Negative Negative 19 Laboratory test finding 10/10/2016 Creatine Kinase(CK) 34 U/L 10-223 C Reactive Protein 31.29 mg/L High < 5.00 20 Erythrocyte Sed Rate 57 mm/Hr High 0-40 Laboratory test finding 09/26/2016 Erythrocyte Sed Rate 51 mm/Hr High 0- 40 C Reactive Protein 27.16 mg/L High < 5.00 21 Laboratory test finding 08/28/2016 Erythrocyte Sed Rate 45 mm/Hr High 0- 40 CBC Auto Diff 08/28/2016 White Blood Count 9.2 10^3/uL 3.5-10.8 Red Blood Count 4.96 10^6/uL 4.0-5.4 Hemoglobin 14.9 g/dL 12.0-16.0 Hematocrit 45 % 35-47 Mean Corpuscular Volume 90 fL 80-97 Mean Corpuscular Hemoglobin 30 pg 27-31 Mean Corpuscular HGB Conc 34 g/dL 31-36 Red Cell Distribution Width 13 % 10.5-15 Platelet Count 204 10^3/uL 150-450 Mean Platelet Volume 7 um3 Low 7.4-10.4 Abs Neutrophils 7.0 10^3/uL 1.5-7.7 Abs Lymphocytes 1.4 10^3/uL 1.0-4.8 Abs Monocytes 0.6 10^3/uL 0-0.8 Abs Eosinophils 0.2 10^3/uL 0-0.6 Abs Basophils 0 10^3/uL 0-0.2 Abs Nucleated RBC 0 10^3/uL Granulocyte % 76.2 % 38-83 Lymphocyte % 15.6 % Low 25-47 Monocyte % 6.2 % 1-9 Eosinophil % 1.6 % 0-6 Basophil % 0.4 % 0-2 Nucleated Red Blood Cells % 0.1 Comp Metabolic Panel 08/28/2016 Sodium 139 mmol/L 133-145 Potassium 3.8 mmol/L 3.5-5.0 Chloride 106 mmol/L 101-111 Co2 Carbon Dioxide 27 mmol/L 22-32 Anion Gap 6 mmol/L 2-11 Glucose 148 mg/dL High 70-100 Blood Urea Nitrogen 12 mg/dL 6-24 Creatinine 0.72 mg/dL 0.51-0.95 BUN/Creatinine Ratio 16.7 8-20 Calcium 9.3 mg/dL 8.6-10.3 Total Protein 7.1 g/dL 6.4-8.9 Albumin 4.1 g/dL 3.2-5.2 Globulin 3.0 g/dL 2-4 Albumin/Globulin Ratio 1.4 1-3 Total Bilirubin 0.40 mg/dL 0.2-1.0 Alkaline Phosphatase 103 U/L 34-104 Alt 14 U/L 7-52 Ast 13 U/L 13-39 Egfr Non- 78.3 >60 Egfr 100.8 >60 22 Laboratory test finding 08/28/2016 C Reactive Protein 19.29 mg/L High &lt ; 5.00 23 Protein Electrophoresis 08/28/2016 Total Protein(Pep) 7.2 g/dL 6.3 - 7.9 Albumin 3.2 g/dL 3.4-4.7 Alpha-1 Globulin 0.4 g/dL 0.1-0.3 Alpha-2 Globulin 1.2 g/dL 0.6-1.0 Beta Globulin 1.0 g/dL 0.7-1.2 Gamma Globulin 1.5 g/dL 0.6-1.6 Albumin/Globulin Ratio 0.79 Impression See Comment 24 Lipid Profile (Trig/Chol/HDL) 01/30/2016 Triglycerides 92 mg/dL 25 Cholesterol 140 mg/dL 26 HDL Cholesterol 53.1 mg/dL 27 LDL Cholesterol 69 mg/dL 28 Comp Metabolic Panel 01/30/2016 Sodium 138 mmol/L 133-145 Potassium 3.7 mmol/L 3.5-5.0 Chloride 104 mmol/L 101-111 Co2 Carbon Dioxide 27 mmol/L 22-32 Anion Gap 7 mmol/L 2-11 Glucose 128 mg/dL High 70-100 Blood Urea Nitrogen 17 mg/dL 6-24 Creatinine 0.89 mg/dL 0.51-0.95 BUN/Creatinine Ratio 19.1 8-20 Calcium 9.3 mg/dL 8.6-10.3 Total Protein 7.2 g/dL 6.4-8.9 Albumin 4.0 g/dL 3.2-5.2 Globulin 3.2 g/dL 2-4 Albumin/Globulin Ratio 1.3 1-3 Total Bilirubin 0.60 mg/dL 0.2-1.0 Alkaline Phosphatase 83 U/L 34-104 Alt 20 U/L 7-52 Ast 17 U/L 13-39 Egfr Non- 61.5 >60 Egfr 79.1 >60 29 Urine Microalbumin Random 01/30/2016 Urine Creatinine 117.49 mg/dL Ur Microalbumin (mg/L) 17.8 mg/L Urine Microalbumin/Creatinine 15.1 ug/mg <31 Laboratory test finding 01/30/2016 TSH (Thyroid Stim Horm) 1.59 mcIU/mL 0.34-5.60 Urine Microalbumin 05/10/2015 Ur Microalbumin (mg/L) 8.0 mg/L 30 Random Urine Creatinine 155.67 mg/dL 30 Urine Microalbumin/Creatinine 5.1 ug/mg <31 30 Comp Metabolic Panel 05/10/2015 Sodium 139 mmol/L 133-145 30 Potassium 3.9 mmol/L 3.5-5.0 30 Chloride 105 mmol/L 101-111 30 Co2 Carbon Dioxide 28 mmol/L 22-32 30 Anion Gap 6 mmol/L 2-11 30 Glucose 131 mg/dL High 70-100 30 Blood Urea Nitrogen 15 mg/dL 6-24 30 Creatinine 0.85 mg/dL 0.51-0.95 30 BUN/Creatinine Ratio 17.6 8-20 30 Calcium 9.4 mg/dL 8.6-10.3 30 Total Protein 7.0 g/dL 6.4-8.9 30 Albumin 4.2 g/dL 3.2-5.2 30 Globulin 2.8 g/dL 2-4 30 Albumin/Globulin Ratio 1.5 1-3 30 Total Bilirubin 0.60 mg/dL 0.2-1.0 30 Alkaline Phosphatase 88 U/L 34-104 30 Alt 19 U/L 7-52 30 Ast 15 U/L 13-39 30 Egfr Non- 64.9 >60 30 Egfr 83.4 >60 30, 31 Lipid Profile (Trig/Chol/HDL) 05/10/2015 Triglycerides 83 mg/dL 30, 32 Cholesterol 130 mg/dL 30, 33 HDL Cholesterol 58.4 mg/dL 30, 34 LDL Cholesterol 55 mg/dL 30, 35 Liver Function Panel 05/10/2015 Direct Bilirubin 0.10 mg/dL 0.03-0.18 30 Indirect Bilirubin 0.5 mg/dL 0.3-1.0 30 Laboratory test finding 05/10/2015 TSH (Thyroid Stim 1.59 ?IU/mL 0.34- 5.60 30, 36 Horm) Vitamin B12 730 pg/mL 180-914 30, 37 CBC Auto Diff 01/11/2015 White Blood Count 7.5 10^3/uL 4.8-10.8 Red Blood Count 4.98 10^6/uL 4.0-5.4 Hemoglobin 15.3 g/dL 12.0-16.0 Hematocrit 45 % 35-47 Mean Corpuscular Volume 91 fL 80-97 Mean Corpuscular Hemoglobin 31 pg 27-31 Mean Corpuscular HGB Conc 34 g/dL 31-36 Red Cell Distribution Width 13 % 10.5-15 Platelet Count 174 10^3/uL 150-450 Mean Platelet Volume 7 um3 Low 7.4-10.4 Abs Neutrophils 5.9 10^3/uL 1.5-7.7 Abs Lymphocytes 1.2 10^3/uL 1.0-4.8 Abs Monocytes 0.3 10^3/uL 0-0.8 Abs Eosinophils 0.1 10^3/uL 0-0.6 Abs Basophils 0.1 10^3/uL 0-0.2 Abs Nucleated RBC 0 10^3/uL Granulocyte % 78.0 % 38-83 Lymphocyte % 16.2 % Low 25-47 Monocyte % 4.1 % 1-9 Eosinophil % 0.8 % 0-6 Basophil % 0.9 % 0-2 Nucleated Red Blood Cells % 0 Comp Metabolic Panel 01/11/2015 Sodium 136 mmol/L 133-145 Potassium 3.8 mmol/L 3.5-5.0 Chloride 103 mmol/L 101-111 Co2 Carbon Dioxide 25 mmol/L 22-32 Anion Gap 8 mmol/L 2-11 Glucose 189 mg/dL High 70-100 Blood Urea Nitrogen 13 mg/dL 6-24 Creatinine 0.84 mg/dL 0.51-0.95 BUN/Creatinine Ratio 15.5 8-20 Calcium 9.6 mg/dL 8.6-10.3 Total Protein 7.2 g/dL 6.4-8.9 Albumin 4.1 g/dL 3.2-5.2 Globulin 3.1 g/dL 2-4 Albumin/Globulin Ratio 1.3 1-3 Total Bilirubin 0.50 mg/dL 0.2-1.0 Alkaline Phosphatase 104 U/L 34-104 Alt 27 U/L 7-52 Ast 14 U/L 13-39 Egfr Non- 65.9 >60 Egfr 84.8 >60 38 Laboratory test finding 01/11/2015 Magnesium 1.8 mg/dL Low 1.9-2.7 Troponin-I (TnI) 0.00 ng/mL <0.03 39 TSH (Thyroid Stim Horm) 0.50 ?IU/mL 0.34-5.60 Laboratory test 01/06/2015 Gardnerella/Yeast: Vaginal SEE RESULT BELOW 40 finding Dna Ua And Culture 01/06/2015 Urine Culture And SEE RESULT BELOW 41 Sensitivity Sensitivities Ua Routine 01/06/2015 Ua Specific [place] 1.020 Ua PH 5 Ua Color yellow Ua Appera cloudy Ua WBC trace Ua Protein neg Ua Glucose + Ua Ketones neg Ua Bilirubin neg Ua Urobilinogen neg Ua Nitrite neg Ua Occult Blood moderate Laboratory test 12/29/2014 Hemoglobin A1c (Glyco 7.4 % High Less than 42 finding HGB) 6.0 Laboratory test 12/29/2014 Urine Culture And SEE RESULT 43 finding Sensitivities BELOW Ua And Culture 12/20/2014 Urine Culture And SEE RESULT 44 Sensitivity Sensitivities BELOW Urinalysis Profile 12/20/2014 Urine Color Yellow Urine Appearance Cloudy Urine Specific [place] 1.020 1.010-1.030 Urine pH 5.0 5-9 Urine Urobilinogen Negative Negative Urine Ketones Negative Negative Urine Protein Negative Negative Urine Leukocytes 2+ Negative Urine Blood 2+ Negative Urine Nitrite Negative Negative Urine Bilirubin Negative Negative Urine Glucose 3+(>=500 mg/dL) Negative Urine White Blood Cell 3+(>20/hpf) Absent Urine Red Blood Cell 3+(>10/hpf) Absent Urine Bacteria 1+ Absent Urine Squamous Epithelial Cell Present Absent Urine Uric Acid Crystals Present Absent Ua Routine 12/20/2014 Ua Specific [place] 1.020 Ua PH 5.0 Ua Color dorothy Ua Appera clear Ua WBC neg Ua Protein neg Ua Glucose 2000+ Ua Ketones trace Ua Bilirubin small Ua Urobilinogen normal Ua Nitrite neg Ua Occult Blood large Comp Metabolic Panel 05/03/2014 Sodium 140 mmol/L 133-145 45 Potassium 4.0 mmol/L 3.5-5.0 45 Chloride 106 mmol/L 101-111 45 Co2 Carbon Dioxide 28 mmol/L 22-32 45 Anion Gap 6 mmol/L 2-11 45 Glucose 114 mg/dL High 70-100 45 Blood Urea Nitrogen 11 mg/dL 6-24 45 Creatinine 0.74 mg/dL 0.51-0.95 45 BUN/Creatinine Ratio 14.9 8-20 45 Calcium 9.4 mg/dL 8.6-10.3 45 Total Protein 7.1 g/dL 6.4-8.9 45 Albumin 4.3 g/dL 3.2-5.2 45 Globulin 2.8 g/dL 2-4 45 Albumin/Globulin Ratio 1.5 1-3 45 Total Bilirubin 0.60 mg/dL 0.2-1.0 45 Alkaline Phosphatase 84 U/L 34-104 45 Alt 22 U/L 7-52 45 Ast 17 U/L 13-39 45 Egfr Non- 76.3 >60 45 Egfr 98.1 >60 45, 46 Lipid Profile (Trig/Chol/HDL) 05/03/2014 Triglycerides 110 mg/dL 45, 47 Cholesterol 141 mg/dL 45, 48 HDL Cholesterol 56.6 mg/dL 45, 49 LDL Cholesterol 62 mg/dL 45, 50 Laboratory test finding 05/03/2014 Vitamin B12 688 pg/mL 180-914 45, 51 TSH (Thyroid Stimulating Horm) 1.88 IU/mL 0.34-5.60 45, 52 Urine Microalbumin Random 05/03/2014 Ur Microalbumin (mg/L) 23.0 mg/L 45 Urine Creatinine 152.94 mg/dL 45 Urine Microalbumin/Creatinine 15.0 Less Than 31 45 Basic Metabolic Panel 12/01/2013 Sodium 137 mmol/L 133-145 Potassium 3.7 mmol/L 3.7-5.6 Chloride 105 mmol/L 101-111 Co2 Carbon Dioxide 25 mmol/L 22-32 Anion Gap 7 mmol/L 2-11 Glucose 167 mg/dL High 70-100 Blood Urea Nitrogen 18 mg/dL 6-24 Creatinine 0.81 mg/dL 0.51-0.95 BUN/Creatinine Ratio 22.2 High 8-20 Calcium 9.7 mg/dL 8.6-10.3 Egfr Non- 68.9 >60 Egfr 88.6 >60 53 Laboratory test finding 12/01/2013 Aldosterone 5.7 ng/dL <=21 54 Renin 5.7 ng/mL/h 55 Ua Routine 11/18/2013 Ua Specific [place] 1.010 Ua PH 6 Ua Color yellow Ua Appera cloudy Ua WBC trace Ua Protein neg Ua Glucose 2000++++ Ua Ketones neg Ua Bilirubin neg Ua Urobilinogen norm Ua Nitrite neg Ua Occult Blood large 200 Urine Culture And Sensitivities 11/18/2013 Urine Culture (SEE NOTE) 56 Basic Metabolic Panel 08/14/2013 Sodium 139 mmol/L 133-145 Potassium 3.8 mmol/L 3.7-5.6 Chloride 108 mmol/L 101-111 Co2 Carbon Dioxide 22 mmol/L 22-32 Anion Gap 9 mmol/L 2-11 Glucose 212 mg/dL High 70-100 Blood Urea Nitrogen 15 mg/dL 6-24 Creatinine 0.79 mg/dL 0.51-0.95 BUN/Creatinine Ratio 19.0 8-20 Calcium 9.5 mg/dL 8.6-10.3 Egfr Non- 70.9 >60 Egfr 91.2 >60 57 Comp Metabolic Panel 07/08/2013 Sodium 140 mmol/L 133-145 Potassium 3.6 mmol/L Low 3.7-5.6 Chloride 104 mmol/L 101-111 Co2 Carbon Dioxide 28 mmol/L 22-32 Anion Gap 8 mmol/L 2-11 Glucose 78 mg/dL 70-100 Blood Urea Nitrogen 13 mg/dL 6-24 Creatinine 0.74 mg/dL 0.51-0.95 BUN/Creatinine Ratio 17.6 8-20 Calcium 9.6 mg/dL 8.6-10.3 Total Protein 7.5 g/dL 6.4-8.9 Albumin 4.6 g/dL 3.2-5.2 Globulin 2.9 g/dL 2-4 Albumin/Globulin Ratio 1.6 1-3 Total Bilirubin 0.40 mg/dL 0.2-1.0 Alkaline Phosphatase 85 U/L 34-104 Alt 22 U/L 7-52 Ast 17 U/L 13-39 Egfr Non- 76.5 >60 Egfr 98.4 >60 58 Lipid Profile (Trig/Chol/HDL) 05/28/2013 Triglycerides 87 mg/dL 59, 60 Cholesterol 128 mg/dL 59, 61 HDL Cholesterol 57.0 mg/dL 59, 62 LDL Cholesterol 54 mg/dL 59, 63 Urine Microalbumin 05/28/2013 Ur Microalbumin (mg/L) 38.0 mg/dL <30 59, 64 Random Urine Creatinine 161.41 mg/dL 59 Urine Microalbumin/Creatinine 23.5 Less Than 31 59 Laboratory test finding 02/03/2013 TSH (Thyroid Stimulating 1.63 miu/mL 0.34-5.60 Horm) Comp Metabolic Panel 10/02/2012 Sodium 138 mmol/L 133-145 Potassium 3.6 mmol/L 3.5-5.0 Chloride 105 mmol/L 101-111 Co2 Carbon Dioxide 28.0 mmol/L 22-32 Anion Gap 5.0 mmol/L 2-11 Glucose 208 mg/dL High 70-100 Blood Urea Nitrogen 10 mg/dL 6-24 Creatinine 0.70 mg/dL 0.50-1.40 BUN/Creatinine Ratio 14.3 8-20 Calcium 9.4 mg/dL 8.1-9.9 Total Protein 6.6 g/dL 6.2-8.1 Albumin 3.9 g/dL 3.2-5.2 Globulin 2.7 g/dL 2-4 Albumin/Globulin Ratio 1.4 1-3 Total Bilirubin 0.9 mg/dL 0.4-1.5 Alkaline Phosphatase 85 U/L 30-110 Alt 27 U/L 14-54 Ast 19 U/L 12-42 Egfr Non- 81.8 >60 Egfr 105.2 >60 65 Laboratory test finding 10/02/2012 Hemoglobin A1c 7.6 % High Less than 6.0 66 Lipid Profile 10/02/2012 Triglycerides 109 mg/dL 40-200 (Trig/Chol/HDL) Cholesterol 125 mg/dL Less than 200 HDL Cholesterol 52 mg/dL 40-60 67 Cholesterol/HDL Ratio 2.4 Average 1-4.44 LDL Cholesterol 51.2 Less Than 100 68 Urine Microalbumin Random 10/02/2012 Ur Microalbumin (mg/L) 22.0 mg/L 69 Urine Creatinine 132.9 mg/dL Urine Microalbumin/Creatinine 16.6 Less Than 31 Laboratory test finding 08/14/2012 Hemoglobin A1c 7.7 High 5-7 Urine Culture And 07/17/2012 Urine Culture (SEE NOTE) 70 Sensitivities Ua Routine 07/17/2012 Ua Specific [place] 1.020 Ua PH 5 Ua Color yellow Ua Appera cloudy Ua WBC small Ua Protein neg Ua Glucose 1000 Ua Ketones neg Ua Bilirubin small Ua Urobilinogen neg Ua Nitrite neg Ua Occult Blood moderate Laboratory test finding 04/28/2012 Hemoglobin A1c 7.5 High 5-7 Ua Routine 03/05/2012 Ua Specific [place] 1.025 Ua PH 6 Ua Color yellow Ua Appera clear Ua WBC neg Ua Protein neg Ua Glucose +4 Ua Ketones neg Ua Bilirubin small Ua Urobilinogen neg Ua Nitrite neg Ua Occult Blood small + Urine Culture And Sensitivities 03/05/2012 Urine Culture (SEE NOTE) 71 Urinalysis W/Microscopic 03/05/2012 Urine Color Yellow Urine Appearance Turbid Urine Specific [place] 1.031 High 1.010-1.030 Urine Esterase Trace Negative Urine Nitrate Negative Negative Urine Urobilinogen Negative E.U./dL Negative Urine Protein Negative mg/dL Negative Urine pH 5.0 5-9 Urine Blood 1+ Negative Urine Ketones Negative mg/dL Negative Urine Bilirubin Negative Negative 72 Urine Glucose 3+ mg/dL Negative Urine WBC 1+ (<10 /hpf) None Seen Urine RBC None Seen None Seen Urine Epithelial Cells 1+ Squamous /hpf None Seen Bacteria Urine 1+ None Seen Crystals Urine Amorphous /lpf None Seen Laboratory test finding 01/14/2012 Hemoglobin A1c 7.7 High 5-7 Laboratory test finding 10/29/2011 Troponin-I 0 NG/ML 0-0.06 73 CBC Auto Diff 10/29/2011 White Blood Count 8.2 CUMM 4.8-10.8 Red Cell Count 4.73 CUMM 4.2-5.4 Hemoglobin 15.1 g/dL 12.0-16.0 Hematocrit 43 % 35-47 Mean Corpuscular Volume 90 um3 79-97 Mean Corpuscular Hemoglob 32 pg High 27-31 Mean Corpuscular HGB Cone 35 g/dL 32-36 Redcell Distribution WDTH 13 % 10.5-15 Platelet Count 153 CUMM 150-450 Mean Platelet Volume 7.7 um3 7.4-10.4 Gran % 70.7 % 38-83 Lymph % 20.2 % 20-45 Mononuclear % 7.5 % 1-9 Eosinophil % 0.9 % 0-6 Basophil % 0.7 % 0-2 Abs Lymphs 1.7 1.0-4.8 Abs Mononuclear 0.6 0-0.8 Absolute Neutrophil Count 5.8 1.5-7.7 Abs Eosinophils 0.1 0-0.6 Abs Basophils 0.1 0-0.2 Comp Metabolic Panel 10/29/2011 Sodium 136 mmol/L 135-145 Potassium 4.0 mmol/L 3.5-5.0 Chloride 105 mmol/L 101-111 Co2 (Carbon Dioxide) 25.0 mmol/L 22-32 Anion Gap 6.0 mmol/L 2-11 74 Glucose 181 mg/dL High 70-100 BUN 12 mg/dL 6-24 Creatinine 0.8 mg/dL 0.50-1.40 One Over Creatinine 1.25 BUN/Creatinine Ratio 15.0 8-20 Calcium 9.5 mg/dL 8.1-9.9 Total Protein 6.8 GM/DL 6.2-8.1 Albumin 4.0 GM/DL 3.2-5.2 Globulin 2.8 GM/DL 2-4 Albumin/Globulin Ratio 1.4 1-3 Bilirubin Total 0.4 mg/dL 0.4-1.5 75 Alkaline Phosphatase 91 U/L 30-110 Alt (SGPT) 28 U/L 14-54 Ast (Sgot) 26 U/L 12-42 eGFR Non- 70.3 > 60 eGFR 90.4 > 60 76 Laboratory test finding 10/29/2011 Troponin-I 0 NG/ML 0-0.06 77 Urinalysis W/Microscopic 10/29/2011 Ua Color YELLOW Yellow Appearance-Urine CLEAR Clear Specific [place]-Ur 1.014 1.010-1.030 Esterase-Urine TRACE Negative Nitrite NEGATIVE Negative [id number] NEGATIVE Negative Protein-Urine NEGATIVE Negative PH-Urine 5.0 5-9 Blood-Urine 1+ Negative Ketones-Urine NEGATIVE Negative Bilirubin-Ur NEGATIVE Negative Glucose-Urine 2+ Negative WBC-Urine 0-2 0-5 RBC-Urine 0-2 0-2 Epith Cells-Ur SMALL None Bacteria-Urine TRACE None Urinalysis W/Microscopic 10/19/2011 Ua Color YELLOW Yellow Appearance-Urine CLEAR Clear Specific [place]-Ur 1.017 1.010-1.030 Esterase-Urine 1+ Negative Nitrite NEGATIVE Negative [id number] NEGATIVE Negative Protein-Urine NEGATIVE Negative PH-Urine 5.0 5-9 Blood-Urine 1+ Negative Ketones-Urine NEGATIVE Negative Bilirubin-Ur NEGATIVE Negative Glucose-Urine 3+ Negative WBC-Urine 1-6 0-5 RBC-Urine 0-2 0-2 Mucus Urine MODERATE None Epith Cells-Ur MODERATE None Bacteria-Urine 1+ None Urine Culture & 10/19/2011 M <SEE 78 Sensitivi NOTE> Lipid Profile 10/03/2011 Triglyceride 103 mg/dL 40-200 (Trig/Chol/HDL) Cholesterol 130 mg/dL Less Than 200 79 High Density Lipoprotein 48 mg/dL 40-60 80 Cholesterol/HDL Ratio 2.71 AVERAGE 1-4.44 Low Density Lipoprotein 61 mg/dL Less Than 100 81 Comp Metabolic Panel 10/03/2011 Sodium 140 mmol/L 135-145 Potassium 3.5 mmol/L 3.5-5.0 Chloride 106 mmol/L 101-111 Co2 (Carbon Dioxide) 29.0 mmol/L 22-32 Anion Gap 5.0 mmol/L 2-11 82 Glucose 172 mg/dL High 70-100 BUN 10 mg/dL 6-24 Creatinine 0.7 mg/dL 0.50-1.40 One Over Creatinine 1.42 BUN/Creatinine Ratio 14.3 8-20 Calcium 9.2 mg/dL 8.1-9.9 Total Protein 6.4 GM/DL 6.2-8.1 Albumin 3.8 GM/DL 3.2-5.2 Globulin 2.6 GM/DL 2-4 Albumin/Globulin Ratio 1.5 1-3 Bilirubin Total 0.8 mg/dL 0.4-1.5 83 Alkaline Phosphatase 92 U/L 30-110 Alt (SGPT) 27 U/L 14-54 Ast (Sgot) 18 U/L 12-42 eGFR Non- 82.0 > 60 eGFR 105.5 > 60 84 Urine Microalbumin Random 10/03/2011 Microalbumin (MG/L) 24.0 mg/L Urine Creatinine 155.4 mg/dL Gerber Alb/Creatinine Ratio 15.4 UG/MG Less Than 30 85 Laboratory test finding 10/03/2011 TSH 1.95 MIU/ML 0.34-5.60 Hemoglobin A1c 7.6 % High Less Than 6.0 86 Urine Culture 08/21/2011 M 87 & Sensitivi <SEE NOTE> Laboratory test 07/05/2011 Hemoglobin A1c 7.4 High 5-7 finding Laboratory test 06/19/2011 Culture 88 finding Sensitivity/Gram <SEE NOTE> St Laboratory test 04/12/2011 Hemoglobin A1c 7.3 % High Less Than 89 finding 6.0 Potassium 4.0 mmol/L 3.5-5.0 Laboratory test finding 01/15/2011 TSH 1.38 MIU/ML 0.34-5.60 Lipid Profile (Trig/Chol/HDL) 01/15/2011 Triglyceride 137 mg/dL 40-200 Cholesterol 136 mg/dL Less Than 200 90 High Density Lipoprotein 44 mg/dL 40-60 91 Cholesterol/HDL Ratio 3.09 AVERAGE 1-4.44 Low Density Lipoprotein 65 mg/dL Less Than 100 92 Comp Metabolic Panel 01/15/2011 Sodium 140 mmol/L 135-145 Potassium 3.9 mmol/L 3.5-5.0 Chloride 107 mmol/L 101-111 Co2 (Carbon Dioxide) 28.0 mmol/L 22-32 Anion Gap 5.0 mmol/L 2-11 93 Glucose 197 mg/dL High 70-100 BUN 14 mg/dL 6-24 Creatinine 0.8 mg/dL 0.50-1.40 One Over Creatinine 1.25 BUN/Creatinine Ratio 17.5 8-20 Calcium 9.3 mg/dL 8.1-9.9 Total Protein 7.0 GM/DL 6.2-8.1 Albumin 3.9 GM/DL 3.2-5.2 Globulin 3.1 GM/DL 2-4 Albumin/Globulin Ratio 1.3 1-3 Bilirubin Total 0.8 mg/dL 0.4-1.5 94 Alkaline Phosphatase 87 U/L 30-110 Alt (SGPT) 41 U/L 14-54 Ast (Sgot) 28 U/L 12-42 eGFR Non- 70.5 > 60 eGFR 90.7 > 60 95 Laboratory test 01/15/2011 Hemoglobin A1c 7.6 % High Less Than 96 finding 6.0 Laboratory test 11/16/2010 Clotest NEGATIVE finding Surgical Pathology 11/16/2010 Surgical Pathology 97 <SEE NOTE> CBC Auto Diff 10/16/2010 White Blood Count 6.1 CUMM 4.8-10.8 Red Cell Count 4.94 CUMM 4.2-5.4 Hemoglobin 15.2 g/dL 12.0-16.0 Hematocrit 45 % 35-47 Mean Corpuscular Volume 91 um3 79-97 Mean Corpuscular Hemoglob 31 pg 27-31 Mean Corpuscular HGB Cone 34 g/dL 32-36 Redcell Distribution WDTH 13 % 10.5-15 Platelet Count 151 CUMM 150-450 Mean Platelet Volume 8.1 um3 7.4-10.4 Gran % 74.8 % 38-83 Lymph % 16.6 % Low 25-47 Mononuclear % 6.8 % 1-9 Eosinophil % 1.1 % 0-6 Basophil % 0.7 % 0-2 Abs Lymphs 1.0 1.0-4.8 Abs Mononuclear 0.4 0-0.8 Absolute Neutrophil Count 4.5 1.5-7.7 Abs Eosinophils 0.1 0-0.6 Abs Basophils 0 0-0.2 98 Laboratory test finding 10/16/2010 Lipase 35 U/L 22-51 Comp Metabolic Panel 10/16/2010 Sodium 138 mmol/L 135-145 Potassium 4.1 mmol/L 3.5-5.0 Chloride 106 mmol/L 101-111 Co2 (Carbon Dioxide) 24.0 mmol/L 22-32 Anion Gap 8.0 mmol/L 2-11 99 Glucose 193 mg/dL High 70-100 BUN 10 mg/dL 6-24 Creatinine 0.70 mg/dL 0.50-1.40 One Over Creatinine 1.40 BUN/Creatinine Ratio 14.3 8-20 Calcium 9.5 mg/dL 8.1-9.9 Total Protein 6.7 GM/DL 6.2-8.1 Albumin 4.1 GM/DL 3.2-5.2 Globulin 2.6 GM/DL 2-4 Albumin/Globulin Ratio 1.6 1-3 Bilirubin Total 0.6 mg/dL 0.4-1.5 100 Alkaline Phosphatase 72 U/L 30-110 Alt (SGPT) 27 U/L 14-54 Ast (Sgot) 22 U/L 12-42 eGFR Non- 82.3 > 60 eGFR 105.8 > 60 101 Comp Metabolic Panel 10/04/2010 Sodium 139 mmol/L 135-145 Potassium 3.4 mmol/L Low 3.5-5.0 Chloride 106 mmol/L 101-111 Co2 (Carbon Dioxide) 26.0 mmol/L 22-32 Anion Gap 7.0 mmol/L 2-11 102 Glucose 248 mg/dL High 70-100 BUN 9 mg/dL 6-24 Creatinine 0.90 mg/dL 0.50-1.40 One Over Creatinine 1.10 BUN/Creatinine Ratio 10.0 8-20 Calcium 9.2 mg/dL 8.1-9.9 Total Protein 6.5 GM/DL 6.2-8.1 Albumin 4.0 GM/DL 3.2-5.2 Globulin 2.5 GM/DL 2-4 Albumin/Globulin Ratio 1.6 1-3 Bilirubin Total 0.8 mg/dL 0.4-1.5 103 Alkaline Phosphatase 72 U/L 30-110 Alt (SGPT) 25 U/L 14-54 Ast (Sgot) 23 U/L 12-42 eGFR Non- 61.5 > 60 eGFR 79.2 > 60 104 Urine Microalbumin Random 10/04/2010 Microalbumin (MG/L) 30.0 mg/L Urine Creatinine 222.74 mg/dL Gerber Alb/Creatinine Ratio 13.4 UG/MG Less Than 30 105 Laboratory test 10/04/2010 Hemoglobin A1c 7.8 % High Less Than 6.0 106 finding Surgical Pathology 08/10/2010 Surgical Pathology 107 --- <SEE NOTE> Comp Metabolic Panel 06/26/2010 Sodium 137 mmol/L 135-145 Potassium 3.5 mmol/L 3.5-5.0 Chloride 106 mmol/L 101-111 Co2 (Carbon Dioxide) 23.0 mmol/L 22-32 Anion Gap 8.0 mmol/L 2-11 108 Glucose 275 mg/dL High 70-100 BUN 13 mg/dL 6-24 Creatinine 0.70 mg/dL 0.50-1.40 One Over Creatinine 1.40 BUN/Creatinine Ratio 18.6 8-20 Calcium 9.0 mg/dL 8.1-9.9 Total Protein 6.5 GM/DL 6.2-8.1 Albumin 3.8 GM/DL 3.2-5.2 Globulin 2.7 GM/DL 2-4 Albumin/Globulin Ratio 1.4 1-3 Bilirubin Total 0.8 mg/dL 0.4-1.5 109 Alkaline Phosphatase 67 U/L 30-110 Alt (SGPT) 25 U/L 14-54 Ast (Sgot) 22 U/L 12-42 eGFR Non- 82.3 > 60 eGFR 105.8 > 60 110 Laboratory test finding 06/26/2010 Hemoglobin A1c 7.6 % High Less Than 6.0 111 Laboratory test finding 04/15/2010 PTT (Aptt) 26.4 25.15-38.53 Comp Metabolic Panel 04/15/2010 Sodium 138 mmol/L 135-145 Potassium 4.2 mmol/L 3.5-5.0 Chloride 105 mmol/L 101-111 Co2 (Carbon Dioxide) 27.0 mmol/L 22-32 Anion Gap 6.0 mmol/L 2-11 112 Glucose 195 mg/dL High 70-100 BUN 15 mg/dL 6-24 Creatinine 0.90 mg/dL 0.50-1.40 One Over Creatinine 1.10 BUN/Creatinine Ratio 16.7 8-20 Calcium 9.4 mg/dL 8.1-9.9 Total Protein 7.0 GM/DL 6.2-8.1 Albumin 4.1 GM/DL 3.2-5.2 Globulin 2.9 GM/DL 2-4 Albumin/Globulin Ratio 1.4 1-3 Bilirubin Total 0.9 mg/dL 0.4-1.5 113 Alkaline Phosphatase 77 U/L 30-110 Alt (SGPT) 34 U/L 14-54 Ast (Sgot) 32 U/L 12-42 eGFR Non- 61.5 > 60 eGFR 79.2 > 60 114 Laboratory test finding 04/15/2010 Lipase 33 U/L 22-51 CPK (Creatine Kinase) 81 U/L 0-170 CKMB 04/15/2010 CKMB In NG/ML 1.1 NG/ML 0.3-4.0 % CKMB 1 %MB 0-9 115 Laboratory test finding 04/15/2010 Troponin-I 0 NG/ML 0-0.06 116 Hemogram 04/15/2010 White Blood Count 6.9 CUMM 4.8-10.8 Red Cell Count 4.77 CUMM 4.2-5.4 Hemoglobin 14.9 g/dL 12.0-16.0 Hematocrit 44 % 35-47 Mean Corpuscular Volume 92 um3 79-97 Mean Corpuscular Hemoglob 31 pg 27-31 Mean Corpuscular HGB Cone 34 g/dL 32-36 Redcell Distribution WDTH 13 % 10.5-15 Platelet Count 159 CUMM 150-450 Mean Platelet Volume 8.2 um3 7.4-10.4 International Normalized Ratio 04/15/2010 Inr 0.90 0.82-1.17 117 Protime 10.5 SEC 10.2-14.8 118 Laboratory test finding 03/23/2010 Hemoglobin A1c 7.1 % High Less Than 6.0 119 Laboratory test finding 12/15/2009 TSH 1.84 MIU/ML 0.34-5.60 Hemoglobin A1c 7.3 % High Less Than 6.0 120 Lipid Profile (Trig/Chol/HDL) 12/15/2009 Triglyceride 99 mg/dL 40-200 Cholesterol 133 mg/dL Less Than 200 121 High Density Lipoprotein 54 mg/dL 40-60 122 Cholesterol/HDL Ratio 2.46 AVERAGE 1-4.44 Low Density Lipoprotein 59 mg/dL Less Than 100 123 Comp Metabolic Panel 12/15/2009 Sodium 140 mmol/L 135-145 Potassium 4.1 mmol/L 3.5-5.0 Chloride 106 mmol/L 101-111 Co2 (Carbon Dioxide) 29.0 mmol/L 22-32 Anion Gap 5.0 mmol/L 2-11 124 Glucose 165 mg/dL High 70-100 125 BUN 13 mg/dL 6-24 Creatinine 0.80 mg/dL 0.50-1.40 One Over Creatinine 1.20 BUN/Creatinine Ratio 16.3 8-20 Calcium 9.5 mg/dL 8.1-9.9 Total Protein 7.2 GM/DL 6.2-8.1 Albumin 4.2 GM/DL 3.2-5.2 Globulin 3.0 GM/DL 2-4 Albumin/Globulin Ratio 1.4 1-3 Bilirubin Total 0.7 mg/dL 0.4-1.5 126 Alkaline Phosphatase 73 U/L 30-110 Alt (SGPT) 31 U/L 14-54 Ast (Sgot) 23 U/L 12-42 eGFR Non- 75.2 > 60 eGFR 90.9 > 60 127 Creatinine Clearance 09/12/2009 Creatinine Random Urine 75.82 mg/dL Creat Clearance 68 mL/min Low 80-125 Hours Of Collection 24 HR 24- Urine Volume Measurement 900 ML Total Protein 24HR Urine 09/12/2009 Total Protein Random Urine 4 mg/dL Urine Total Protein/24HR 36 MG/24HR Low 50-100 Comp Metabolic Panel 09/12/2009 Sodium 140 mmol/L 135-145 Potassium 3.6 mmol/L 3.5-5.0 Chloride 108 mmol/L 101-111 Co2 (Carbon Dioxide) 25.0 mmol/L 22-32 Anion Gap 7.0 mmol/L 2-11 128 Glucose 160 mg/dL High 70-100 129 BUN 13 mg/dL 6-24 Creatinine 0.70 mg/dL 0.50-1.40 One Over Creatinine 1.40 BUN/Creatinine Ratio 18.6 8-20 Calcium 9.3 mg/dL 8.1-9.9 130 Total Protein 6.9 GM/DL 6.2-8.1 Albumin 4.0 GM/DL 3.2-5.2 Globulin 2.9 GM/DL 2-4 Albumin/Globulin Ratio 1.4 1-3 Bilirubin Total 0.6 mg/dL 0.4-1.5 131 Alkaline Phosphatase 77 U/L 30-110 Alt (SGPT) 30 U/L 14-54 Ast (Sgot) 20 U/L 12-42 eGFR Non- 87.7 > 60 eGFR 106.1 > 60 132 Urine Microalbumin Random 09/12/2009 Microalbumin (MG/L) 15.0 mg/L Urine Creatinine 181.39 mg/dL Gerber Alb/Creatinine Ratio 8.2 UG/MG Less Than 30 133 Laboratory test finding 09/12/2009 Hemoglobin A1c 7.0 % High Less Than 6.0 134 1 Acute inflammation: >10.00 2 Desirable: <150 Borderline High: 150-199 High: 200-499 Very High: >500 3 Desirable: <200 Borderline High: 200-239 High: >239 4 Low: <40 Desirable: 40-60 High: >60 5 Desirable: <100 Near Optimal: 100-129 Borderline High: 130-159 High: 160-189 Very High: >189 6 Because ethnic data is not always readily available, this report includes an eGFR for both -Americans and non- Americans. The National Kidney Disease Education Program (NKDEP) does not endorse the use of the MDRD equation for patients that are not between the ages of 18 and 70, are , have extremes of body size, muscle mass, or nutritional status, or are non- or non-. According to the National Kidney Foundation, irrespective of diagnosis, the stage of the disease is based on the level of kidney function: Stage Description GFR(mL/min/1.73 m(2)) 1 Kidney damage with normal or decreased GFR 90 2 Kidney damage with mild decrease in GFR 60-89 3 Moderate decrease in GFR 30-59 4 Severe decrease in GFR 15-29 5 Kidney failure <15 (or dialysis) 7 REFERENCE VALUE Not present Test Performed by: [facility] - [address] [address] 8 Please schedule 2 days before follow up 9 Acute inflammation: >10.00 10 Because ethnic data is not always readily available, this report includes an eGFR for both -Americans and non- Americans. The National Kidney Disease Education Program (NKDEP) does not endorse the use of the MDRD equation for patients that are not between the ages of 18 and 70, are , have extremes of body size, muscle mass, or nutritional status, or are non- or non-. According to the National Kidney Foundation, irrespective of diagnosis, the stage of the disease is based on the level of kidney function: Stage Description GFR(mL/min/1.73 m(2)) 1 Kidney damage with normal or decreased GFR 90 2 Kidney damage with mild decrease in GFR 60-89 3 Moderate decrease in GFR 30-59 4 Severe decrease in GFR 15-29 5 Kidney failure <15 (or dialysis) 11 Please check xrays today 12 Acute inflammation: >10.00 13 Because ethnic data is not always readily available, this report includes an eGFR for both -Americans and non- Americans. The National Kidney Disease Education Program (NKDEP) does not endorse the use of the MDRD equation for patients that are not between the ages of 18 and 70, are , have extremes of body size, muscle mass, or nutritional status, or are non- or non-. According to the National Kidney Foundation, irrespective of diagnosis, the stage of the disease is based on the level of kidney function: Stage Description GFR(mL/min/1.73 m(2)) 1 Kidney damage with normal or decreased GFR 90 2 Kidney damage with mild decrease in GFR 60-89 3 Moderate decrease in GFR 30-59 4 Severe decrease in GFR 15-29 5 Kidney failure <15 (or dialysis) 14 <1:80 (Negative) REFERENCE VALUE <1:80 (Negative) Test Performed by: [facility] [address] [place] [address] 15 Test Performed by: [facility] [address] [place] [address] 16 REFERENCE VALUE <20.0 (Negative) Test Performed by: [address] [address] 17 Because ethnic data is not always readily available, this report includes an eGFR for both -Americans and non- Americans. The National Kidney Disease Education Program (NKDEP) does not endorse the use of the MDRD equation for patients that are not between the ages of 18 and 70, are , have extremes of body size, muscle mass, or nutritional status, or are non- or non-. According to the National Kidney Foundation, irrespective of diagnosis, the stage of the disease is based on the level of kidney function: Stage Description GFR(mL/min/1.73 m(2)) 1 Kidney damage with normal or decreased GFR 90 2 Kidney damage with mild decrease in GFR 60-89 3 Moderate decrease in GFR 30-59 4 Severe decrease in GFR 15-29 5 Kidney failure <15 (or dialysis) 18 Acute inflammation: >10.00 19 Serologic response to B. burgdorferi infection is not detected, but cannot rule out early infection during which low or undetectable antibody levels to B. burgdorferi may be present. If clinically indicated, a new serum specimen should be submitted in 7-14 days. Test Performed by: [facility] [address] [place] [address] 20 Acute inflammation: >10.00 21 Acute inflammation: >10.00 22 Because ethnic data is not always readily available, this report includes an eGFR for both -Americans and non- Americans. The National Kidney Disease Education Program (NKDEP) does not endorse the use of the MDRD equation for patients that are not between the ages of 18 and 70, are , have extremes of body size, muscle mass, or nutritional status, or are non- or non-. According to the National Kidney Foundation, irrespective of diagnosis, the stage of the disease is based on the level of kidney function: Stage Description GFR(mL/min/1.73 m(2)) 1 Kidney damage with normal or decreased GFR 90 2 Kidney damage with mild decrease in GFR 60-89 3 Moderate decrease in GFR 30-59 4 Severe decrease in GFR 15-29 5 Kidney failure <15 (or dialysis) 23 Acute inflammation: >10.00 24 RESULT: No apparent monoclonal protein on serum electrophoresis. Test Performed by: [address] [address] 25 Desirable <150 Borderline high 150-199 High 200-499 Very High >500 26 Desirable <200 Borderline high 200-239 High >239 27 Low <40 Desirable: 40-60 High: >60 28 Desirable: <100 mg/dL Near Optimal: 100-129 mg/dL Borderline High: 130-159 mg/dL High: 160-189 mg/dL Very High: >189 mg/dL 29 Because ethnic data is not always readily available, this report includes an eGFR for both -Americans and non- Americans. The National Kidney Disease Education Program (NKDEP) does not endorse the use of the MDRD equation for patients that are not between the ages of 18 and 70, are , have extremes of body size, muscle mass, or nutritional status, or are non- or non-. According to the National Kidney Foundation, irrespective of diagnosis, the stage of the disease is based on the level of kidney function: Stage Description GFR(mL/min/1.73 m(2)) 1 Kidney damage with normal or decreased GFR 90 2 Kidney damage with mild decrease in GFR 60-89 3 Moderate decrease in GFR 30-59 4 Severe decrease in GFR 15-29 5 Kidney failure <15 (or dialysis) 30 PT IS FASTING 31 Because ethnic data is not always readily available, this report includes an eGFR for both -Americans and non- Americans. The National Kidney Disease Education Program (NKDEP) does not endorse the use of the MDRD equation for patients that are not between the ages of 18 and 70, are , have extremes of body size, muscle mass, or nutritional status, or are non- or non-. According to the National Kidney Foundation, irrespective of diagnosis, the stage of the disease is based on the level of kidney function: Stage Description GFR(mL/min/1.73 m(2)) 1 Kidney damage with normal or decreased GFR 90 2 Kidney damage with mild decrease in GFR 60-89 3 Moderate decrease in GFR 30-59 4 Severe decrease in GFR 15-29 5 Kidney failure <15 (or dialysis) 32 Desirable <150 Borderline high 150-199 High 200-499 Very High >500 33 Desirable <200 Borderline high 200-239 High >239 34 Low <40 Desirable: 40-60 High: >60 35 Desirable: <100 mg/dL Near Optimal: 100-129 mg/dL Borderline High: 130-159 mg/dL High: 160-189 mg/dL Very High: >189 mg/dL 36 PT IS FASTING 37 Normal Range 180 to 914 Indeterminate Range 145 to 180 Deficient Range <145 38 Because ethnic data is not always readily available, this report includes an eGFR for both -Americans and non- Americans. The National Kidney Disease Education Program (NKDEP) does not endorse the use of the MDRD equation for patients that are not between the ages of 18 and 70, are , have extremes of body size, muscle mass, or nutritional status, or are non- or non-. According to the National Kidney Foundation, irrespective of diagnosis, the stage of the disease is based on the level of kidney function: Stage Description GFR(mL/min/1.73 m(2)) 1 Kidney damage with normal or decreased GFR 90 2 Kidney damage with mild decrease in GFR 60-89 3 Moderate decrease in GFR 30-59 4 Severe decrease in GFR 15-29 5 Kidney failure <15 (or dialysis) 39 Reference Range and Interpretation: TnI (ng/mL) Interpretation Less Than 0.03 ng/mL Not supportive of diagnosis of AK 0.03 - 0.50 ng/mL Indeterminate: suggest serial studies if clinically indicated. Greater than 0.5 ng/mL Consistent with diagnosis of AK 40 SEE RESULT BELOW Name: MARCOS JOHNSTON : [address]: Paty Newman MD Acct: [id number] Unit: [id number] AGE: 74 Location: [facility] Re01/06/15 SEX: F Status: REG REF SPEC: [id number] JASEN: 01/06/15-[address] [facility] [address]: Paty Newman MD REQ: [id number] RECD: 01/06/15 STATUS: COMP _ SOURCE: VAGINAL SPDESC: ORDERED: Blanka,Yeast DNA, Trich DNA Procedure Result Verified Site Gardnerella/Yeast: Vaginal DNA Final 01/07/15- 1023 ML Organism 1 Negative Gardnerella Organism 2 Negative Mile The presence of G. vaginalis, although suggestive, is not diagnostic for bacterial vaginosis. Results should be interpreted in conjuction with other clinical and laboratory data available. Women with vaginal discharge should be evaluated for risk factors of cervicitis and pelvic inflammatory disease, toxic shock syndrome (S.aureus), and if present, evaluated for organisms not included in this assay such as N. gonorrhoeae, C. trachomatis, Mobiluncus, Mycoplasma and/or Prevotella. Mixed infections may occur. The performance of this test on patient specimens collected during or immediately after antimicrobial therapy is unknown. The presence or absence of Mile species, or G. vaginalis cannot be used as a test for therapeutic success or failure. Trichomonas: Vaginal DNA Probe Final 01/07/15- 1023 ML Organism 1 Negative Trichomonas CONTINUED ON NEXT PAGE * ML=Testing performed at Main Lab DEPARTMENT OF PATHOLOGY, [address] [place] [address] Kojo Holley M.D. Director CLARISALA # [id number] Patient: MARCOS JOHNSTON [id number] (Continued) Specimen: [id number] Collected: 01/06/15-1338 Received: 01/06/15-163 (Continued) Procedure Result Verified Site Trichomonas: Vaginal DNA Probe Final (continued) 01/07/15- 1022 The presence or absence of T. vaginalis cannot be used as a test for therapeutic success or failure. * ML - MAIN LAB ([facility]) . END OF REPORT * ML=Testing performed at Main Lab DEPARTMENT OF PATHOLOGY, [address] [place] [address] Kojo Holley M.D. Director HOWIE # [id number] 41 SEE RESULT BELOW Name: MARCOS JOHNSTON : [address]: Paty Newman MD Acct: [id number] Unit: [id number] AGE: 74 Location: [facility] Re01/06/15 SEX: F Status: REG REF SPEC: [id number] JASEN: 01/06/[address]: Paty Newman MD REQ: [id number] RECD: 01/06/15 STATUS: COMP _ SOURCE: URINE SPDESC: ORDERED: Urine Culture Procedure Result Verified Site Urine Culture Final 01/08/15- 1032 ML No Growth Day 2 (<1,000 CFU/mL) * ML - MAIN LAB ([facility]) . END OF REPORT * ML=Testing performed at Main Lab DEPARTMENT OF PATHOLOGY, [address] [place] [address] Kojo Holley M.D. Director [facility] # [id number] 42 Therapeutic target for the treatment of diabetes Mellitus patients is <7% HBA1C, and in selective patients <6.0%.Please refer to [employer]eless Diabetes Association Diabetic care guidelines for further information. 43 SEE RESULT BELOW Name: VICKIEMARCOS E : [address]: Kiersten Gonzalez MD Acct: [id number] Unit: [id number] AGE: 74 Location: [facility] Re12/29/14 SEX: F Status: DEP ER SPEC: [id number] JASEN: 12/29/[address] [facility] [address]: Kiersten Gonzalez MD REQ: [id number] RECD: 12/29/141 STATUS: BARRY HILARIO DR: [facility] Paty Newman MD _ S[facility]: [facility] ORDERED: Urine Culture Procedure Result Verified Site Urine Culture Final 10/30/15- 1035 ML Organism 1 NORMAL ANASTACIA Clayton Count 10-25,000 (Moderate) CFU/ML * ML - MAIN LAB ([facility]) . END OF REPORT * ML=Testing performed at Main Lab DEPARTMENT OF PATHOLOGY, [address] [place] [address] Kojo Holley M.D. Director SAM # [id number] 44 SEE RESULT BELOW Name: MARCOS JOHNSTON : [address]: Yulissa Birmingham NP Acct: [id number] Unit: [id number] AGE: 74 Location: [facility] Re12/20/14 SEX: F Status: REG REF SPEC: [id number] JASEN: 12/20/14-[address]: Yulissa Birmingham NP REQ: [id number] RECD: 12/20/14 STATUS: COMP _ SOURCE: URINE SPDESC: ORDERED: Urine Culture Procedure Result Verified Site Urine Culture Final 12/22/14- 0935 ML Organism 1 ESCHERICHIA COLI Clayton Count >100,000 (Many) CFU/ML 1. ESCHERICHIA COLI M.I.C. RX --------- ------ Ampicillin >=32 R Cefazolin <=4 S Cefepime <=1 S Ceftriaxone <=1 S Ciprofloxacin <=0.25 S Gentamicin >=16 R Levofloxacin <=0.12 S Meropenem <=0.25 S Nitrofurantoin <=16 S Tetracycline <=1 S Pipercillin/Tazobactam <=4 S Trimethoprim/Sulfamethoxazole <=20 S Amoxicillin/Clavulanic Acid 16 I Aztreonam <=1 S Contact the Microbiology Department for any additional antibiotic reporting. * ML - MAIN LAB ([facility]) . END OF REPORT * ML=Testing performed at Main Lab DEPARTMENT OF PATHOLOGY, [address] [place] [address] Kojo Holley M.D. Director [facility] # [id number] 45 FASTING 46 Because ethnic data is not always readily available, this report includes an eGFR for both -Americans and non- Americans. The National Kidney Disease Education Program (NKDEP) does not endorse the use of the MDRD equation for patients that are not between the ages of 18 and 70, are , have extremes of body size, muscle mass, or nutritional status, or are non- or non-. According to the National Kidney Foundation, irrespective of diagnosis, the stage of the disease is based on the level of kidney function: Stage Description GFR(mL/min/1.73 m(2)) 1 Kidney damage with normal or decreased GFR 90 2 Kidney damage with mild decrease in GFR 60-89 3 Moderate decrease in GFR 30-59 4 Severe decrease in GFR 15-29 5 Kidney failure <15 (or dialysis) 47 Desirable <150 Borderline high 150-199 High 200-499 Very High >500 48 Desirable <200 Borderline high 200-239 High >239 49 Low <40 Desirable: 40-60 High: >60 50 Desirable <100 Near Optimal 100-129 Borderline high 130-159 High 160-189 Very High >189 51 Normal Range 180 to 914 Indeterminate Range 145 to 180 Deficient Range <145 52 FASTING 53 Because ethnic data is not always readily available, this report includes an eGFR for both -Americans and non- Americans. The National Kidney Disease Education Program (NKDEP) does not endorse the use of the MDRD equation for patients that are not between the ages of 18 and 70, are , have extremes of body size, muscle mass, or nutritional status, or are non- or non-. According to the National Kidney Foundation, irrespective of diagnosis, the stage of the disease is based on the level of kidney function: Stage Description GFR(mL/min/1.73 m(2)) 1 Kidney damage with normal or decreased GFR 90 2 Kidney damage with mild decrease in GFR 60-89 3 Moderate decrease in GFR 30-59 4 Severe decrease in GFR 15-29 5 Kidney failure <15 (or dialysis) 54 ADDITIONAL INFORMATION Reference range for patients 11 years and older is based on upright A.M. collection from subjects without sodium restrictions. Test Performed by: [address] [address] [employer]: Earl Maurice M.D. 55 REFERENCE VALUE (Peripheral vein specimen) Na-deplete, upright: Mean: 5.9 Range: 2.9-10.8 Na-replete, upright: Mean: 1.0 Range: <=0.6-3.0 Test Performed by: [address] [address] [employer]: Earl Maurice M.D. 56 RUN DATE: 11/20/13 [facility] LAB LIVE PAGE 1 RUN TIME: [address] [place], [place] [address] Specimen Inquiry Name: MARCOS JOHNSTON : [address]: Lucas Tanner NP Acct: [id number] Unit: [id number] AGE: 73 Location: [facility] Re11/18/13 SEX: F Status: REG REF SPEC: [id number] JASEN: 11/18/13-[address]: Lucas Tanner [employer] REQ: [id number] RECD: 11/18/131546 STATUS: COMP _ SOURCE: URINE SPDESC: ORDERED: Urine Culture QUERIES: Medent Number [id number] Procedure Result Verified Site Urine Culture Final 11/20/13- 1127 ML Organism 1 ESCHERICHIA COLI Clayton Count >100,000 (Many) CFU/ML 1. ESCHERICHIA COLI M.I.C. RX --------- ------ Ampicillin >=32 R Cefazolin <=4 S Cefepime <=1 S Ceftriaxone <=1 S Ciprofloxacin <=0.25 S Gentamicin <=1 S Levofloxacin <=0.12 S Meropenem <=0.25 S Nitrofurantoin <=16 S Tetracycline <=1 S Pipercillin/Tazobactam <=4 S Trimethoprim/Sulfamethoxazole <=20 S Amoxicillin/Clavulanic Acid 16 I Aztreonam <=1 S Contact the Microbiology Department for any additional antibiotic reporting. END OF REPORT * ML=Testing performed at Main Lab DEPARTMENT OF PATHOLOGY, [address] [address] Kojo Holley M.D. Director [facility] # [id number] 57 Because ethnic data is not always readily available, this report includes an eGFR for both -Americans and non- Americans. The National Kidney Disease Education Program (NKDEP) does not endorse the use of the MDRD equation for patients that are not between the ages of 18 and 70, are , have extremes of body size, muscle mass, or nutritional status, or are non- or non-. According to the National Kidney Foundation, irrespective of diagnosis, the stage of the disease is based on the level of kidney function: Stage Description GFR(mL/min/1.73 m(2)) 1 Kidney damage with normal or decreased GFR 90 2 Kidney damage with mild decrease in GFR 60-89 3 Moderate decrease in GFR 30-59 4 Severe decrease in GFR 15-29 5 Kidney failure <15 (or dialysis) 58 Because ethnic data is not always readily available, this report includes an eGFR for both -Americans and non- Americans. The National Kidney Disease Education Program (NKDEP) does not endorse the use of the MDRD equation for patients that are not between the ages of 18 and 70, are , have extremes of body size, muscle mass, or nutritional status, or are non- or non-. According to the National Kidney Foundation, irrespective of diagnosis, the stage of the disease is based on the level of kidney function: Stage Description GFR(mL/min/1.73 m(2)) 1 Kidney damage with normal or decreased GFR 90 2 Kidney damage with mild decrease in GFR 60-89 3 Moderate decrease in GFR 30-59 4 Severe decrease in GFR 15-29 5 Kidney failure <15 (or dialysis) 59 PT IS FASTING 60 Desirable <150 Borderline high 150-199 High 200-499 Very High >500 61 Desirable <200 Borderline high 200-239 High >239 62 Low <40 Desirable: 40-60 High: >60 63 Desirable <100 Near Optimal 100-129 Borderline high 130-159 High 160-189 Very High >189 64 Microalbuminuria in a random sample is defined as: Microalbumin/Creatinine ratio of 30-299 ug/mg. 65 Because ethnic data is not always readily available, this report includes an eGFR for both -Americans and non- Americans. The National Kidney Disease Education Program (NKDEP) does not endorse the use of the MDRD equation for patients that are not between the ages of 18 and 70, are , have extremes of body size, muscle mass, or nutritional status, or are non- or non-. According to the National Kidney Foundation, irrespective of diagnosis, the stage of the disease is based on the level of kidney function: Stage Description GFR(mL/min/1.73 m(2)) 1 Kidney damage with normal or decreased GFR 90 2 Kidney damage with mild decrease in GFR 60-89 3 Moderate decrease in GFR 30-59 4 Severe decrease in GFR 15-29 5 Kidney failure <15 (or dialysis) 66 Therapeutic target for the treatment of diabetes Mellitus patients is <7% HBA1C, and in selective patients <6.0%.Please refer to [employer] Diabetes [employer] Diabetic care guidelines for further information. 67 HDL Interpretation: Undesirable: High Risk: Less than 40 mg/dL Desirable: Low Risk: Greater than 60 mg/dL 68 LDL Interpretation: Low Risk Optimal Level: LDL Less than 100 mg/dL Near or Above Optimal: LDL 100-129 mg/dL Borderline High Risk: LDL 130-159 mg/dL High Risk: LDL 160-189 mg/dL Very High Risk: LDL Greater than 189 mg/dL 69 Microalbuminuria in a random sample is defined as: Microalbumin/Creatinine ratio of 30-299 ug/mg. 70 RUN DATE: 07/19/12 [facility] LAB LIVE PAGE 1 RUN TIME: [address] [place], [place] [address] Specimen Inquiry Name: MARCOS JOHNSTON : [address]: Kaylie Ornelas MD Acct: [id number] Unit: [id number] AGE: 72 Location: [facility] Re07/17/12 SEX: F Status: REG REF SPEC: [id number] JASEN: 07/17/12-[address] [facility] [address]: Kaylie Ornelas MD REQ: [id number] RECD: 07/17/12 STATUS: COMP _ SOURCE: URINE SPDESC: ORDERED: Urine Culture QUERIES: Medent Number [id number] Procedure Result Verified Site Urine Culture Final 07/19/12- 1043 ML Organism 1 NORMAL ANASTACIA Clayton Count 1-10,000 (Few) CFU/ML END OF REPORT * ML=Testing performed at Main Lab DEPARTMENT OF PATHOLOGY, [address] [place], [place] [address] Kojo Holley M.D. Director [facility] Permit #[id number] 71 RUN DATE: 03/08/12 [facility] LAB LIVE PAGE 1 RUN TIME: [address] [place], [place] [address] Specimen Inquiry Name: MARCOS JOHNSTON : [address]: Trent WOMACK,Gill Ervin Acct: [id number] Unit: [id number] AGE: 72 Location: [facility] Re03/05/12 SEX: F Status: REG REF SPEC: [id number] JASEN: 03/05/12-[address] [facility] [address]: Gill Newman MD REQ: [id number] RECD: 03/06/12 STATUS: COMP _ SOURCE: URINE SPDESC: ORDERED: Urine Culture QUERIES: Medent Number [id number] Procedure Result Verified Site Urine Culture Final 03/08/12- 1136 ML Organism 1 NORMAL ANASTACIA Clayton Count 10-25,000 (Moderate) CFU/ML END OF REPORT * ML=Testing performed at Main Lab DEPARTMENT OF PATHOLOGY, [address] [address] Kojo Holley M.D. Director [facility] Permit #[id number] 72 Effective 01/30/12, bilirubin confirmation by ictotest is discontinued. False-positive results for bilirubin may occur due to color interference from large amounts of blood in the urine, very concentrated urine, or drugs that discolor urine such as phenazopyridine(Pyridium). 73 New Reference Range and Interpretation effective 12/05/2001 TnI (ng/ml) INTERPRETATION Less Than 0.06 ng/mL NOT SUPPORTIVE OF DIAGNOSIS OF [place] 0.06 - 0.50 ng/ml INDETERMINATE: SUGGEST SERIAL STUDIES IF CLINICALLY INDICATED. Greater than 0.5 ng/mL CONSISTENT WITH DIAGNOSIS OF [place] . 74 Anion gap measurement may be of limited value in the presence of any alkalosis, especially in a combined acid base disorder. . 75 A metabolite of Naproxen, O-desmethylnaproxen, has been shown to interfere with the Jendrassik-Jose Daniel method for measuring total bilirubin. Samples from patients who have taken Naproxen have shown spurious elevation in total bilirubin levels. 76 Because ethnic data is not always readily available, this report includes an eGFR for both -Americans and non- Americans. The National Kidney Disease Education Program (NKDEP) does not endorse the use of the MDRD equation for patients that are not between the ages of 18 and 70, are , have extremes of body size, muscle mass, or nutritional status, or are non- or non-. According to the National Kidney Foundation, irrespective of diagnosis, the stage of the disease is based on the level of kidney function: Stage Description GFR(mL/min/1.73 m(2)) 1 Kidney damage with normal or decreased GFR 90 2 Kidney damage with mild decrease in GFR 60-89 3 Moderate decrease in GFR 30-59 4 Severe decrease in GFR 15-29 5 Kidney failure <15 (or dialysis) 77 New Reference Range and Interpretation effective 12/05/2001 TnI (ng/ml) INTERPRETATION Less Than 0.06 ng/mL NOT SUPPORTIVE OF DIAGNOSIS OF AK 0.06 - 0.50 ng/ml INDETERMINATE: SUGGEST SERIAL STUDIES IF CLINICALLY INDICATED. Greater than 0.5 ng/mL CONSISTENT WITH DIAGNOSIS OF [place] . 78 RUN DATE: 10/21/11 [facility] NMI LIVE PAGE 1 RUN TIME: 1211 Specimen Inquiry RUN USER: INTERFACE Name: MARCOS JOHNSTON Accjerrod#: [id number] Status: REG REF Re10/19/11 Age/Sex: 71/F Unit#: [id number] Location: : 38 SPEC #: [id number] JASEN: 10/19/11-6002 STATUS: COMP REQ #: [id number] RECD: 10/19/11-[address] [facility] [address]: Stephanie Thibodeaux MD SOURCE: URINE ENTR: 10/19/11-[address]: NISSA: ORDERED: URINE C S QUERIES: MEDENT REQUISITION # [id number] SPECIMEN DESCRIPTION: URINE, CLEAN CATCH ACT WKST: UR 10/21/11 #1 Procedure Result Verified Site > URINE CULTURE SENSITIVI Final -1211 ML SCANT NORMAL URETHRAL OR PERINEAL ANASTACIA ML - [facility] State Permit #[id number] [address] [place] [id number] DEPARTMENT OF PATHOLOGY, [address] [place] [address] [facility] Permit #[id number] Kojo Holley M.D. Director Charles Alvarez M.D. Core Machine Operator 79 CHOLESTEROL INTERPRETATION: Desirable: Less than 200 MG/DL Borderline-High Risk: 200-239 MG/DL High-Risk: 240 MG/DL and over 80 HDL INTERPRETATION: Undesirable: High Risk: Less than 40 MG/DL Desirable: Low Risk: Greater than 60 MG/DL 81 LDL INTERPRETATION: Low Risk Optimal Level: LDL Less than 100 MG/DL Near or Above Optimal: LDL 100-129 MG/DL Borderline High Risk: LDL 130-159 MG/DL High Risk: LDL 160-189 MG/DL Very High Risk: LDL Greater than 189 MG/DL 82 Anion gap measurement may be of limited value in the presence of any alkalosis, especially in a combined acid base disorder. . 83 A metabolite of Naproxen, O-desmethylnaproxen, has been shown to interfere with the Jendrassik-Meckling method for measuring total bilirubin. Samples from patients who have taken Naproxen have shown spurious elevation in total bilirubin levels. 84 Because ethnic data is not always readily available, this report includes an eGFR for both -Americans and non- Americans. The National Kidney Disease Education Program (NKDEP) does not endorse the use of the MDRD equation for patients that are not between the ages of 18 and 70, are , have extremes of body size, muscle mass, or nutritional status, or are non- or non-. According to the National Kidney Foundation, irrespective of diagnosis, the stage of the disease is based on the level of kidney function: Stage Description GFR(mL/min/1.73 m(2)) 1 Kidney damage with normal or decreased GFR 90 2 Kidney damage with mild decrease in GFR 60-89 3 Moderate decrease in GFR 30-59 4 Severe decrease in GFR 15-29 5 Kidney failure <15 (or dialysis) 85 MICROALBUMINURIA IN A RANDOM SAMPLE IS DEFINED : MICROALBUMIN/CREATININE RATIO OF 30-299 ug/mg. . 86 THERAPEUTIC TARGET FOR THE TREATMENT OF DIABETES MELLITUS PATIENTS IS <7% HBA1C, AND IN SELECTIVE PATIENTS <6.0%. PLEASE REFER TO [employer] [employer] DIABETIC CARE GUIDELINES FOR FURTHER INFORMATION. 87 RUN DATE: 08/23/11 [facility] NMI LIVE PAGE 1 RUN TIME: 1037 Specimen Inquiry RUN USER: INTERFACE Name: MARCOS JOHNSTON Accjerrod#: [id number] Status: REG REF Re08/21/11 Age/Sex: 71/F Unit#: [id number] Location: [facility] : 38 SPEC #: [id number] JASEN: 08/21/11 STATUS: COMP REQ #: [id number] RECD: 08/21/[address] [facility] [address]: Trent WOMACK,Paty Ervin SOURCE: URINE ENTR: 08/21/111132 [facility] DR: [facility]: ORDERED: URINE C S [facility]ER[facility] # [id number] SPECIMEN DESCRIPTION: URINE, RANDOM Procedure Result Verified Site > URINE CULTURE SENSITIVI Final -1037 ML Organism 1 ESCHERICHIA COLI COLONY COUNT 25-50,000 ORGANISMS/ML (MODERATE) 1. ESCHERICHIA COLI RX M.I.C. ------ --------- AMIKACIN S <=2 LEVOFLOXACIN S <=0.12 AMPICILLIN S 8 CEFAZOLIN S <=4 CEFTRIAXONE S <=1 CIPROFLOXACIN S <=0.25 GENTAMICIN S <=1 TIGECYCLINE S <=0.5 CEFTAZIDIME S <=1 IMIPENEM S <=1 NITROFURANTOIN S 32 TRIMETH-SULFA S <=20 *These antibiotics are not available in the [facility] Formulary. Contact the Microbiology Department for any additional antibiotic reporting. [facility] Permit #[id number] [address] [place] [address] DEPARTMENT OF PATHOLOGY, [address] [place] [address] [facility] Permit #[id number] Marquis Lackey M.D. Core Machine Operator 88 RUN DATE: 06/21/11 [facility] NMI LIVE PAGE 1 RUN TIME: 1051 Specimen Inquiry RUN USER: INTERFACE Name: MARCOS JOHNSTON Status: REG REF Re06/19/11 Age/Sex: 71/F Unit#: [id number] Location: [facility] : 38 SPEC #: [id number] JASEN: 06/19/11-1049 STATUS: COMP REQ #: [id number] RECD: 06/19/11-[address] [facility] [address]: Yulissa Sellers SOURCE: WOUND ENTR: 06/19/[address]: NISSAC: MISC ORDERED: CULT SENS/GS COMMENTS: NO SOURCE SPECIFIED ON REQUISITION QUERIES: MEDENT REQUISITION # [id number] ACT WKST: B 06/21/11 #1 Procedure Result Verified Site > CULTURE SENSITIVITY Final -1051 ML FINAL: NO GROWTH DAY 2 > GRAM STAIN SMEAR Final -0942 ML POLYS NONE SMEAR: NO ORGANISMS SEEN ML - [facility] Permit #[id number] [address] [place] [address] DEPARTMENT OF PATHOLOGY, [address] [place] [address] [facility] Permit #[id number] Kojo Holley M.D. Director Charles Alvarez M.D. Core Machine Operator 89 THERAPEUTIC TARGET FOR THE TREATMENT OF DIABETES MELLITUS PATIENTS IS <7% HBA1C, AND IN SELECTIVE PATIENTS <6.0%. PLEASE REFER TO [employer] DIABETIC CARE GUIDELINES FOR FURTHER INFORMATION. 90 CHOLESTEROL INTERPRETATION: Desirable: Less than 200 MG/DL Borderline-High Risk: 200-239 MG/DL High-Risk: 240 MG/DL and over 91 HDL INTERPRETATION: Undesirable: High Risk: Less than 40 MG/DL Desirable: Low Risk: Greater than 60 MG/DL 92 LDL INTERPRETATION: Low Risk Optimal Level: LDL Less than 100 MG/DL Near or Above Optimal: LDL 100-129 MG/DL Borderline High Risk: LDL 130-159 MG/DL High Risk: LDL 160-189 MG/DL Very High Risk: LDL Greater than 189 MG/DL 93 Anion gap measurement may be of limited value in the presence of any alkalosis, especially in a combined acid base disorder. . 94 A metabolite of Naproxen, O-desmethylnaproxen, has been shown to interfere with the Jendrassik-Jose Daniel method for measuring total bilirubin. Samples from patients who have taken Naproxen have shown spurious elevation in total bilirubin levels. 95 Because ethnic data is not always readily available, this report includes an eGFR for both -Americans and non- Americans. The National Kidney Disease Education Program (NKDEP) does not endorse the use of the MDRD equation for patients that are not between the ages of 18 and 70, are , have extremes of body size, muscle mass, or nutritional status, or are non- or non-. According to the National Kidney Foundation, irrespective of diagnosis, the stage of the disease is based on the level of kidney function: Stage Description GFR(mL/min/1.73 m(2)) 1 Kidney damage with normal or decreased GFR 90 2 Kidney damage with mild decrease in GFR 60-89 3 Moderate decrease in GFR 30-59 4 Severe decrease in GFR 15-29 5 Kidney failure <15 (or dialysis) 96 THERAPEUTIC TARGET FOR THE TREATMENT OF DIABETES MELLITUS PATIENTS IS <7% HBA1C, AND IN SELECTIVE PATIENTS <6.0%. PLEASE REFER TO [employer] DIABETIC CARE GUIDELINES FOR FURTHER INFORMATION. 97 ---- RUN DATE: 11/20/10 [facility] NMI LIVE PAGE 1 RUN TIME: 1410 Specimen Inquiry RUN USER: INTERFACE -- Name: MARCOS JOHNSTON Accjerrod#: [id number] Status: REG REF Re11/16/10 Age/Sex: 70/F Unit#: [id number] Location: [address] [place] [address]. : 38 -- Specimen: [id number] SOUT Spec Date: 11/16/[address]: Bharat cortés MD Spec Type: SURGICAL P Received: 11/17/10-919 Copies to: Paty mclaughlin MD SPECIMEN BIOPSY GASTRIC POLYPS HISTORY POST-OP DIAGNOSIS: Erosive esophagitis. Hiatal hernia. Gastric polyps. CLINICAL INFORMATION: Abdominal pain. GROSS DESCRIPTION The specimen is received in formalin labelled Marcos Johnston, Biopsy Gastric Polyps, and consists of several fragments of yellow-brown tissue measuring in aggregate 0.8 x 0.5 x 0.5 cm. Submitted entirely, one cassette. DIAGNOSIS Stomach, polyps, biopsy: Hyperplastic fundic gland polyps. Signed Electronically by: KOJO HOLLEY MD 11/20/10 1407 -- -- DEPARTMENT OF PATHOLOGY, [address] [place] [address] [facility] Permit #[id number] Marquis Lackey M.D. Hvac Maintenance Technician Dir coreen -- 98 Lymphopenia % 99 Anion gap measurement may be of limited value in the presence of any alkalosis, especially in a combined acid base disorder. . 100 A metabolite of Naproxen, O-desmethylnaproxen, has been shown to interfere with the Jendrassik-Meckling method for measuring total bilirubin. Samples from patients who have taken Naproxen have shown spurious elevation in total bilirubin levels. 101 Because ethnic data is not always readily available, this report includes an eGFR for both -Americans and non- Americans. The National Kidney Disease Education Program (NKDEP) does not endorse the use of the MDRD equation for patients that are not between the ages of 18 and 70, are , have extremes of body size, muscle mass, or nutritional status, or are non- or non-. According to the National Kidney Foundation, irrespective of diagnosis, the stage of the disease is based on the level of kidney function: Stage Description GFR(mL/min/1.73 m(2)) 1 Kidney damage with normal or decreased GFR 90 2 Kidney damage with mild decrease in GFR 60-89 3 Moderate decrease in GFR 30-59 4 Severe decrease in GFR 15-29 5 Kidney failure <15 (or dialysis) 102 Anion gap measurement may be of limited value in the presence of any alkalosis, especially in a combined acid base disorder. . 103 A metabolite of Naproxen, O-desmethylnaproxen, has been shown to interfere with the Jendrassik-Meckling method for measuring total bilirubin. Samples from patients who have taken Naproxen have shown spurious elevation in total bilirubin levels. 104 Because ethnic data is not always readily available, this report includes an eGFR for both -Americans and non- Americans. The National Kidney Disease Education Program (NKDEP) does not endorse the use of the MDRD equation for patients that are not between the ages of 18 and 70, are , have extremes of body size, muscle mass, or nutritional status, or are non- or non-. According to the National Kidney Foundation, irrespective of diagnosis, the stage of the disease is based on the level of kidney function: Stage Description GFR(mL/min/1.73 m(2)) 1 Kidney damage with normal or decreased GFR 90 2 Kidney damage with mild decrease in GFR 60-89 3 Moderate decrease in GFR 30-59 4 Severe decrease in GFR 15-29 5 Kidney failure <15 (or dialysis) 105 MICROALBUMINURIA IN A RANDOM SAMPLE IS DEFINED : MICROALBUMIN/CREATININE RATIO OF 30-299 ug/mg. . 106 THERAPEUTIC TARGET FOR THE TREATMENT OF DIABETES MELLITUS PATIENTS IS <7% HBA1C, AND IN SELECTIVE PATIENTS <6.0%. PLEASE REFER TO [employer] DIABETIC CARE GUIDELINES FOR FURTHER INFORMATION. 107 ----- RUN DATE: 08/14/10 [facility] NMI LIVE PAGE 1 RUN TIME: 1338 Specimen Inquiry RUN USER: INTERFACE -- Name: MARCOS JOHNSTON Status: REG REF Re08/10/10 Age/Sex: 70/F Unit#: [id number] Location: [address] [place] [address]. : 38 -- Specimen: [id number] SOUT Spec Date: 08/10/[address]: Bharat cortés MD Spec Type: SURGICAL P Received: 08/11/10-1146 Copies to: Paty mclaughlin MD SPECIMEN 1) CECAL POLYP 2) RIGHT COLON POLYP HISTORY POST-OP DIAGNOSIS: Colonoscopy to cecum. Two small poolyps removed. Sigmo id diverticulosis. CLINICAL INFORMATION: Family history of colon carcinoma (father). GROSS DESCRIPTION 1) The specimen is received in formalin labelled Marcos Johnston, Cecal Polyp, and consists of one fragment of yellow tissue measuring 0.3 x 0.3 x 0.2 cm. Submitted entirely, one cassette labelled 1. 2) The specimen is received in formalin labelled Marcos Johnston, Right Colon Polyp, and consists of one fragment of yellow tissue measuring 0.4 x 0.3 x 0.3 cm. Submitted entirely, one cassette labelled 2. DIAGNOSIS 1) Colon, cecum, biopsy: A. Tubular adenoma. B. No high grade dysplasia or malignancy. 2) Colon, right, biopsy: A. Tubular adenoma. B. No high grade dysplasia or malignancy. Signed Electronically by: KOJO HOLLEY MD 08/14/10 1338 -- -- DEPARTMENT OF PATHOLOGY, [address] [place] [address] [facility] Permit #[id number] Kojo Holley M.D. Director Charles Alvarez M.D. Hvac Maintenance Technician Dir coreen -- 108 Anion gap measurement may be of limited value in the presence of any alkalosis, especially in a combined acid base disorder. . 109 A metabolite of Naproxen, O-desmethylnaproxen, has been shown to interfere with the Jenfamilia-Meckling method for measuring total bilirubin. Samples from patients who have taken Naproxen have shown spurious elevation in total bilirubin levels. 110 Because ethnic data is not always readily available, this report includes an eGFR for both -Americans and non- Americans. The National Kidney Disease Education Program (NKDEP) does not endorse the use of the MDRD equation for patients that are not between the ages of 18 and 70, are , have extremes of body size, muscle mass, or nutritional status, or are non- or non-. According to the National Kidney Foundation, irrespective of diagnosis, the stage of the disease is based on the level of kidney function: Stage Description GFR(mL/min/1.73 m(2)) 1 Kidney damage with normal or decreased GFR 90 2 Kidney damage with mild decrease in GFR 60-89 3 Moderate decrease in GFR 30-59 4 Severe decrease in GFR 15-29 5 Kidney failure <15 (or dialysis) 111 THERAPEUTIC TARGET FOR THE TREATMENT OF DIABETES MELLITUS PATIENTS IS <7% HBA1C, AND IN SELECTIVE PATIENTS <6.0%. PLEASE REFER TO [employer] DIABETIC CARE GUIDELINES FOR FURTHER INFORMATION. 112 Anion gap measurement may be of limited value in the presence of any alkalosis, especially in a combined acid base disorder. . 113 A metabolite of Naproxen, O-desmethylnaproxen, has been shown to interfere with the Jendrassik-Meckling method for measuring total bilirubin. Samples from patients who have taken Naproxen have shown spurious elevation in total bilirubin levels. 114 Because ethnic data is not always readily available, this report includes an eGFR for both -Americans and non- Americans. The National Kidney Disease Education Program (NKDEP) does not endorse the use of the MDRD equation for patients that are not between the ages of 18 and 70, are , have extremes of body size, muscle mass, or nutritional status, or are non- or non-. According to the National Kidney Foundation, irrespective of diagnosis, the stage of the disease is based on the level of kidney function: Stage Description GFR(mL/min/1.73 m(2)) 1 Kidney damage with normal or decreased GFR 90 2 Kidney damage with mild decrease in GFR 60-89 3 Moderate decrease in GFR 30-59 4 Severe decrease in GFR 15-29 5 Kidney failure <15 (or dialysis) 115 INTERPRETATION %CK-MB < 5% NOT SUPPORTIVE OF DIAGNOSIS OF AK 5 - <10% INDETERMINATE; SUGGEST SERIAL STUDIES IF CLINICALLY INDICATED 10% OR > CONSISTENT WITH DIAGNOSIS OF AK . 116 New Reference Range and Interpretation effective 12/05/2001 TnI (ng/ml) INTERPRETATION Less Than 0.06 ng/mL NOT SUPPORTIVE OF DIAGNOSIS OF AK 0.06 - 0.50 ng/ml INDETERMINATE: SUGGEST SERIAL STUDIES IF CLINICALLY INDICATED. Greater than 0.5 ng/mL CONSISTENT WITH DIAGNOSIS OF [place] . 117 Recommended INR for Patients on Oral Anticoagulants Prophylaxis 2.0 - 3.0 Treatment of thrombosis 2.0 - 3.0 Prevention of embolism 2.0 - 3.0 Prevention of embolism from prosthetic heart valves 2.5 - 3.5 118 DIAGNOSIS,TREATMENT,AND THERAPY MUST BE BASED ON THE INR VALUE ALONE. 119 THERAPEUTIC TARGET FOR THE TREATMENT OF DIABETES MELLITUS PATIENTS IS <7% HBA1C, AND IN SELECTIVE PATIENTS <6.0%. PLEASE REFER TO [employer] DIABETIC CARE GUIDELINES FOR FURTHER INFORMATION. 120 THERAPEUTIC TARGET FOR THE TREATMENT OF DIABETES MELLITUS PATIENTS IS <7% HBA1C, AND IN SELECTIVE PATIENTS <6.0%. PLEASE REFER TO [employer] DIABETIC CARE GUIDELINES FOR FURTHER INFORMATION. 121 CHOLESTEROL INTERPRETATION: Desirable: Less than 200 MG/DL Borderline-High Risk: 200-239 MG/DL High-Risk: 240 MG/DL and over 122 HDL INTERPRETATION: Undesirable: High Risk: Less than 40 MG/DL Desirable: Low Risk: Greater than 60 MG/DL 123 LDL INTERPRETATION: Low Risk Optimal Level: LDL Less than 100 MG/DL Near or Above Optimal: LDL 100-129 MG/DL Borderline High Risk: LDL 130-159 MG/DL High Risk: LDL 160-189 MG/DL Very High Risk: LDL Greater than 189 MG/DL 124 Anion gap measurement may be of limited value in the presence of any alkalosis, especially in a combined acid base disorder. . 125 Note change in reference range as of 10/23/07. The change was based on recommendations from the [employer]. 126 A metabolite of Naproxen, O-desmethylnaproxen, has been shown to interfere with the Jendrassik-Jose Daniel method for measuring total bilirubin. Samples from patients who have taken Naproxen have shown spurious elevation in total bilirubin levels. 127 Because ethnic data is not always readily available, this report includes an eGFR for both -Americans and non- Americans. The National Kidney Disease Education Program (NKDEP) does not endorse the use of the MDRD equation for patients that are not between the ages of 18 and 70, are , have extremes of body size, muscle mass, or nutritional status, or are non- or non-. According to the National Kidney Foundation, irrespective of diagnosis, the stage of the disease is based on the level of kidney function: Stage Description GFR(mL/min/1.73 m(2)) 1 Kidney damage with normal or decreased GFR 90 2 Kidney damage with mild decrease in GFR 60-89 3 Moderate decrease in GFR 30-59 4 Severe decrease in GFR 15-29 5 Kidney failure <15 (or dialysis) 128 Anion gap measurement may be of limited value in the presence of any alkalosis, especially in a combined acid base disorder. . 129 Note change in reference range as of 10/23/07. The change was based on recommendations from the [employer]. 130 Please note change in reference range effective 07 . 131 A metabolite of Naproxen, O-desmethylnaproxen, has been shown to interfere with the Jendrassik-Jose Daniel method for measuring total bilirubin. Samples from patients who have taken Naproxen have shown spurious elevation in total bilirubin levels. 132 Because ethnic data is not always readily available, this report includes an eGFR for both -Americans and non- Americans. The National Kidney Disease Education Program (NKDEP) does not endorse the use of the MDRD equation for patients that are not between the ages of 18 and 70, are , have extremes of body size, muscle mass, or nutritional status, or are non- or non-. According to the National Kidney Foundation, irrespective of diagnosis, the stage of the disease is based on the level of kidney function: Stage Description GFR(mL/min/1.73 m(2)) 1 Kidney damage with normal or decreased GFR 90 2 Kidney damage with mild decrease in GFR 60-89 3 Moderate decrease in GFR 30-59 4 Severe decrease in GFR 15-29 5 Kidney failure <15 (or dialysis) 133 MICROALBUMINURIA IN A RANDOM SAMPLE IS DEFINED : MICROALBUMIN/CREATININE RATIO OF 30-299 ug/mg. . 134 THERAPEUTIC TARGET FOR THE TREATMENT OF DIABETES MELLITUS PATIENTS IS <7% HBA1C, AND IN SELECTIVE PATIENTS <6.0%. PLEASE REFER TO [employer] DIABETIC CARE GUIDELINES FOR FURTHER INFORMATION. Procedures Date CPT Code Description Status Comment 02/19/2017 26006 Ligation Or Biopsy Temporal Completed Artery 01/17/2017 Inject/Drain Joint/Bursa Major Completed 11/12/2016 Diabetic Foot Exam Completed 11/06/201658848 Inject/Drain Joint/Bursa Major Completed 03/13/2016 Bone Mineral Density Test Completed 03/08/201630990 Inject/Drain Joint/Bursa Small Completed 02/14/2016 Mammogram Completed 11/21/2015 Diabetic Retinal Eye Exam Completed Document: 02/15/16 - Rec.Release-DR Mart Perez 10/13/2015 61792 Inject/Drain Joint/Bursa Small Completed 08/19/2015 Colonoscopy Completed 08/11/2015 40635 EKG Tracing & Completed Interpretation 04/21/2015 55133 Inject/Drain Joint/Bursa Small Completed 02/09/2015 Mammogram Completed 10/25/2014 39672 Inject/Drain Joint/Bursa Small Completed 02/04/2014 Mammogram Completed 07/08/2013 19706 EKG Tracing & Completed Interpretation 05/29/2013 Diabetic Retinal Eye Exam Completed 05/06/2013 Diabetic Retinal Eye Exam Completed 01/21/2013 Mammogram Completed 01/17/2012 Mammogram Completed 12/14/2011 Diabetic Retinal Eye Exam Completed 10/30/2011 89577 EKG Tracing & Completed Interpretation 07/23/2011 Diabetic Foot Exam Completed 07/05/2011 84130 EKG Tracing & Completed Interpretation 05/09/2011 Diabetic Foot Exam Completed 01/15/2011 Mammogram Completed 08/10/2010 Colonoscopy Completed 04/11/2010 Bone Mineral Density Test Completed 02/06/2010 80155 EKG Tracing & Completed Interpretation 01/13/2010 Mammogram Completed 10/11/2008 04466 EKG Tracing & Completed Interpretation 01/08/2008 Mammogram Completed 07/09/2007 Mammogram Completed 03/31/2007 20752 EKG Tracing & Completed Interpretation 03/31/2007 58920 EKG Tracing & Completed Interpretation Encounters Type Date Location Provider CPT E/M Dx Office Visit 01/29/2017 [facility] Heron Barth M.D. 50109 M35.3 10:20a [facility] M54.9 Z79.1 R74.8 Office Visit 12/13/2016 1:45p [facility] [place] [address] M75.41 C.M.A. M75.42 Office Visit 12/12/2016 9:00a [facility] 07197 M35.3 Nely Cho M54.2 M25.512 Office Visit 11/06/2016 1:00p [facility] [place] [address] M25.511 C.M.A. M75.41 Office Visit 10/19/2016 8:40a [facility] Internal Paty Newman 64280 M25.511 Medicine - Teri Cho F43.20 Office Visit 10/09/2016 11:40a [facility] Internal Paty eNwman 62968 M79.669 Medicine - [place] Lewis.Kaitlyn Office Visit 08/28/2016 8:40a [facility] Internal Paty Newman 52787 M54.9 Medicine - [place] Marquis I10 Office Visit 08/13/2016 8:40a [facility] Internal Medicine Paty Newman 93718 M54.5 - [place] M.DMaria C M25.551 Office Visit 08/06/2016 2:00p Neurosurgery Services Chrystal Marques PA-C 17421 M54.5 [facility] Office Visit 08/03/2016 11:40a [facility] Internal Medicine Yulissa Birmingham, N.P. 57220 M54.5 - [place] Office Visit 07/16/2016 3:45p Neurosurgery Services Chrystal Marques PA-C 33583 M54.16 [facility] Office Visit 07/04/2016 10:20a [facility] Internal Medicine Yulissa Birmingham, N.P. 60935 M54.5 - [place] Office Visit 02/13/2016 10:40a [facility] Internal Medicine Paty Newman 51308 Z00.00 - [place] M.Kaitlyn K21.9 I10 M15.2 H91.93 F41.9 N95.1 Office Visit 08/11/2015 10:20a [facility] Internal Medicine Paty Newman M.D. 79323 I10 - [place] K22.4 Office Visit 02/10/2015 1:40p [facility] Internal Medicine Paty Newman 11591 Z00.00 - Teri Cho E11.9 I10 K21.9 N77.1 Office Visit 01/06/2015 1:00p [facility] Internal Medicine Paty Newman 31424 N39.0 - [place] Cho N77.1 Office Visit 12/20/2014 10:20a [facility] Internal Medicine Yulissa Birmingham, N.P. 99123 N77.1 - [place] N39.0 Office Visit 12/15/2014 1:20p [facility] Internal Medicine Yulissa Birmingham, N.P. 57378 N39.0 - [place] N77.1 Office Visit 10/25/2014 11:30a Orthopedic Services Meg Rice, 14967 715.14 Of Kelli [facility] Office Visit 10/04/2014 1:20p [facility] Internal Medicine Paty Newman 01515 401.1 - Teri Cho 530.89 716.84 716.94 Office Visit 05/11/2014 11:00a [facility] Internal Medicine Paty Newman 77188 401.1 - [place] Cho 388.70 Office Visit 02/08/2014 9:00a [facility] Internal Medicine Paty Newman 37879 V70.0 - Teri Cho 401.1 530.81 244.9 787.91 250.00 V03.82 Office Visit 01/14/2014 10:00a [facility] [place] [address] 720.2 - [place] Office Visit 11/18/2013 10:30a [facility] [place] [address] 788.1 - [place] Office Visit 10/23/2013 1:00p [facility] Internal Medicine Paty Newman 02401 V72.84 - Teri Cho 371.70 250.00 401.1 Office Visit 07/08/2013 11:20a [facility] Internal Medicine Paty Newman 34960 V72.84 - [place] M.D. 371.70 401.1 250.00 Office Visit 06/04/2013 10:40a [facility] Internal Medicine Paty Cotton, 47392 401.1 - [place] M.D. 272.4 Office Visit 03/24/2013 10:40a [facility] Internal Medicine Paty Cotton, 85217 455.6 - [place] M.D. Office Visit 02/03/2013 11:00a [facility] Internal Medicine Patydarryl Newman 07790 V70.0 - [place] M.D. 401.1 244.9 787.91 Office Visit 10/29/2012 2:20p [facility] Internal Medicine Yulissa Birmingham, N.P. 10706 112.3 - [place] Office Visit 09/29/2012 9:00a [facility] Internal Medicine Paty Newman 06560 250.00 - [place] M.D. 787.91 Office Visit 08/14/2012 11:40a [facility] Internal Medicine Patyroberto Newman 15083 250.00 - [place] M.D. 599.0 Office Visit 07/17/2012 4:00p [facility] Internal Medicine Kaylie Ornelas M.D., 95004 788.1 - [place] FACP Office Visit 04/28/2012 2:00p [facility] Internal Medicine Paty Newman 66961 250.00 - [place] M.D. Office Visit 03/20/2012 9:40a [facility] Internal Medicine Patyroberto Newman 44084 250.00 - [place] M.D. 530.81 Office Visit 03/07/2012 2:00p [facility] Internal Medicine Yulissa Birmingham, N.P. 78076 627.3 - [place] Office Visit 02/15/2012 10:40a [facility] Internal Medicine Paty Trent 39118 250.00 - [place] M.D. 530.81 Office Visit 01/14/2012 9:40a [facility] Internal Medicine Paty Newman 45947 250.00 - [place] M.D. 401.1 272.4 786.50 Office Visit 10/30/2011 2:20p [facility] Internal Medicine Paty Newman 52460 786.50 - [place] M.D. V04.81 Office Visit 10/11/2011 11:20a [facility] Internal Medicine Paty Cotton, 49306 250.00 - [place] M.D. 401.1 272.4 Office Visit 09/19/2011 10:20a [facility] Internal Medicine Yulissa Birmingham, N.P. 71723 112.1 - [place] Office Visit 08/21/2011 8:40a [facility] Internal Medicine Paty Cotton, 34159 599.0 - [place] M.D. Office Visit 07/05/2011 1:40p [facility] Internal Medicine Paty Cotton, 80669 V70.0 - [place] M.D. 250.00 401.1 244.9 V76.10 V72.31 Office Visit 06/19/2011 9:20a [facility] Internal Medicine Yulissa Birmingham, N.P. 77511 680.8 - [place] Office Visit 04/17/2011 3:20p [facility] Internal Medicine Paty Cotton, 89518 250.00 - [place] M.D. 401.1 272.4 780.52 Office Visit 01/18/2011 10:40a DO Not Use Paty Cotton, 67929 250.00 [facility] M.D. 401.1 272.4 Office Visit 10/26/2010 8:20a DO Not Use Paty Cotton, 96415 789.01 [facility] M.D. 250.00 276.8 Office Visit 10/16/2010 10:20a DO Not Use Paty Cotton, 49825 789.00 [facility] M.D. Office Visit 09/25/2010 10:20a DO Not Use Yulissa [place], 46847 530.81 [facility] N.P. Office Visit 08/04/2010 11:20a DO Not Use Paty Cotton, 45953 250.00 [facility] M.D. 401.1 Office Visit 06/29/2010 1:30p DO Not Use Paty Cotton, 67445 250.00 [facility] M.D. 401.1 272.4 Office Visit 04/18/2010 2:15p DO Not Use Paty Cotton, 56234 786.50 [facility] M.D. 250.00 401.1 Office Visit 02/06/2010 3:45p DO Not Use Kaylie Ornelas M.D., 99009 786.50 [facility] FACP Office Visit 12/20/2009 2:00p DO Not Use Paty Cotton, 60352 250.02 [facility] M.D. 401.1 272.0 Office Visit 09/16/2009 1:30p DO Not Use Paty Cotton, 23107 250.00 [facility] M.D. Office Visit 07/05/2009 11:30a DO Not Use Paty Cotton, 52133 250.02 [facility] M.D. 401.1 Office Visit 05/13/2009 11:00a DO Not Use Alyce Shea, 46119 250.02 [facility] M.D. 401.1 Office Visit 04/05/2009 9:45a DO Not Use Yulissa Birmingham, 09845 786.52 [facility] N.P. Office Visit 01/11/2009 11:00a DO Not Use Alyce Shea, 49092 729.5 [facility] M.D. 250.00 401.1 272.0 Office Visit 12/17/2008 11:45a DO Not Use [facility] Kaylie Ornelas M.D., 06057 477.9 FACP Office Visit 11/22/2008 2:30p DO Not Use [facility] Yulissa Birmingham, 35184 724.1 N.P. 845.00 Office Visit 10/11/2008 3:15p DO Not Use Alyce Shea, 17458 V70.0 [facility] M.D. 250.00 272.0 585.9 401.1 Office Visit 07/12/2008 9:15a DO Not Use Alyce Shea, 92064 250.00 [facility] M.D. 401.1 Office Visit 05/26/2008 10:15a DO Not Use Alyce Shea, 23352 250.02 [facility] M.D. Office Visit 04/14/2008 9:00a DO Not Use Alyce Shea, 63416 250.02 [facility] M.D. 272.0 401.1 Office Visit 01/23/2008 1:00p DO Not Use [facility] Kaylie Ornelas, 42413 784.2 M.D., FACP Office Visit 01/14/2008 9:00a DO Not Use [facility] Alyce Shea, 69919 250.02 M.D. 272.0 401.1 Office Visit 01/02/2008 1:15p DO Not Use Yulissa Varn, 77575 564.00 [facility] N.P. Office Visit 09/30/2007 10:45a DO Not Use Yulissa Varn, 56345 752.41 [facility] N.P. Office Visit 09/02/2007 9:15a DO Not Use [facility] ruvalcabaa, 87103 V72.31 [facility] M.D. 250.00 272.0 401.1 Office Visit 06/11/2007 1:30p DO Not Use [facility] ruvalcabaa, 85966 530.5 [facility] M.D. 250.00 401.1 Office Visit 04/23/2007 4:15p DO Not Use RadomsHortensia diaza, 32783 250.00 [facility] M.D. 530.5 Office Visit 03/31/2007 11:45a DO Not Use [facility] ruvalcabaa, 89466 786.50 [facility] M.D. Office Visit 03/06/2007 3:00p DO Not Use RadomsHortensia diaza, 78763 250.00 [facility] M.D. 401.1 Office Visit 02/04/2007 3:30p DO Not Use RadHort[employer] ruvalcabaa, 48257 244.9 [facility] M.D. 266.2 250.00 401.1 Plan of Care Future Appointment(s):08/16/2017 2:20 pm - Paty Newman M.D. at [facility] Internal Medicine - Fpihsuyry43/28/2018 10:20 am - Heron Barth M.D. at [facility]02/19/2017 - Sebastian Gee M.D.M35.3 Polymyalgia rheumaticaNew Labs:Surgical PathologyFollow up:As hphyhdH25.1 Atypical facial painNew Labs:Surgical Pathology
--- OUTSIDE RECORDS SUMMARY | 2017-02-28 23:55 | XMS REPORT ---
:1940 External Reference #:[id number] Author Organization [facility] Address [address] [address] Phone [phone] Care Team Providers Name Role Phone Paty Newman MD Primary Care Physician Unavailable Payers Type Date Identification Numbers Payment Provider Subscriber Medicare Primary Expires: Policy Number: Medicare Marcos Johnston 2016 [id number] PayID: [id number] [address] [place] [address] Medigap Part B Policy Number: [id number] A[employer] Medicare Marcos Johnston Group Number: [id number] [address] PayID: [id number] [place] [address] [employer] Part B Expires: 2016 Policy Number: [employer] Insurance Saad Johnston [id number] Group Number: [id number] [address] PayID: [id number] [place] [address] Problems Date Description Provider Status Onset: 05/24/2009 [...] Marital Status Lives With 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 Synthroid 11/02 Active Tablets 75mcg 90tab take 1 s tablet daily Cotton, M.D. Lisinopril 08/03 Active Tablets 10mg 90tab take one E11.9 Paty /2014 s tablet by Cotton, mouth every M.DMaria [...] Strips Active 100un for use once Paty / its daily Marquis Newman Vit B12 Active 500mg qod Unknown / Glimiperide Active Tablets 4mg ( Not Taking E11.9 Unknown /0000 )1 PO bid Crestor Active Tablets 5mg 45tab take 1 Paty / s tablet every Cotton, other day M.DMaria C Probiotic Active Capsules 1 by mouth Unknown /0000 every day Tresiba Active Solution 100Unit/M ( Sliding Jass Rodriguez, Flextouch /0000 Pen-Injec L Scale) 28-32 MD t units at bedtime Cyclobenzaprine Active Tablets 5mg take one Unknown HCL /0000 tablet by mouth bid . Novolog Active Solution 100Unit/M ( Sliding Jass Rodriguez, /0000 L Scale) MD inject 5 units tid Methotrexate 01/10 Hx Tablets 2.5mg 30tab take 4 M54.5 s capsules/tab Tab, - lets by M.D. 01/10 mouth once weekly on Saturdays Prednisone 12/24 Hx Tablets 5mg 45tab Please take s 4 tabs Tab, - daily, taper M.D. 01/10 by 5 mg /2017 every 4 days until finished Medrol 08/28 Hx TBPK 4mg 21uni 6 by mouth M54.9 Paty /2017 ts day 1, 5 by Cotton, - [...] 07/16 Hx Tablets 2mg 2tabs take one M54.16 tablet by Vero, - mouth 30 M.D. before mri, may repeat at the time of mri. Vicodin 07/12 Hx Tablets 5-300mg 60tab take 1 by s mouth every Cotton, - 6 hours as M.D. 10/02 needed Nystatin 02/12 Hx Cream [id number] 60uni aply 3 times 112.3 t/GM ts daily until Trent, - rash clears M.D. 07/04 Estrace 01/06 [...] 12/16 Hx Cream 2% 21gm Apply bid Trent, - M.D. 01/06 Diflucan 12/15 Hx Tablets [...] take one 788.1 Lucas HCL tablet twice Flores, SOIL SPECIALIST - a day for 3 01/13 more days. Fluconazole 11/18 Hx Tablets 150mg 2tabs one by mouth 788.1 Lucas July repeat Flores SOIL SPECIALIST - in 3 days as 02/08 needed ( localzed burning to tercanozole, has never had a problem with fluconazole) Hydrocortisone 03/24 Hx Cream 2.5-1% 28.40 apply once 455.6 Paty Acetate/Pramoxin 0gm daily as Cotton, e - needed M.D. 02/08 Nystatin 10/29 Hx Cream [id number] 60uni aply 3 times 112.3 t/GM ts daily until Varn, N.P. - rash clears 12/28 Glipizide 08/14 Hx Tablets 5mg 60tab 1 PO before 250.00 s breakfast Cotton, - and 1 PO M.D. 08/26 dinner Estrace 08/14 Hx Cream 0.1mg/GM 42.50 0.5 gm to 599.0 0gm perineum hs Cotton, - 2 times M.D. 02/03 weekly prn Ciprofloxacin 07/17 Hx Tablets 250mg 6tabs 1 tab by 788.1 Kaylie HCL mouth twice Ceci, - a day M.D., FACP 08/14 Glimepiride 03/20 Hx Tablets 2mg 60tab Take 2 250.00 s Tablets By Cotton, - Mouth Once M.D. 08/14 Daily In The Morning Glimepiride 01/13 Hx Tablets 1mg 45tab 1 and 03/05 250.00 s tablets once Cotton, - daily in the M.D. 03/20 Fluconazole 09/19 Hx Tablets 150mg 2tabs one by mouth July repeat Varn, N.P. - in 3 days as 03/07 needed Terconazole 09/18 Hx Cream 0.8% 20gm 1 applicator 112.1 intravaginal Varn, N.P. - ly hs for 3 09/19 nights Clotrimazole/Bet 09/18 Hx Cream 1-0.05% 15gm apply 2 - 3 112.1 amethasone times daily Varn, N.P. Dipropionate - as needed 09/25 Diflucan 09/09 Hx Tablets 150mg 2tabs sig 1 po repeat in 3 , - days if M.D. 09/18 Macrobid 08/26 Hx Capsules 100mg 14cap 1 tab po bid s x 7 days Cotton, - M.D. 09/18 Ciprofloxacin 08/20 Hx Tablets 250mg 14tab 1 po bid for 599.0 Paty HCL s 7 days Cotton, - M.D. 08/26 Doxycycline 06/18 Hx Capsules 100mg 20cap one po every 680.8 Paty Hyclate s 12 hours for Cotton, - 10 days M.D. 06/28 Accu-Chek 02/01 Hx Strips 1unit Use To Test Paty Compact Test s Once Daily Jayme Newman - M.D. 07/04 Prandin 10/26 Hx Tablets 0.5mg 360ta Take 1 250.00 bs Tablet Three Cotton, - Times A Day M.D. 01/13 Before Januvia 10/26 Hx Tablets 100mg 90tab Take 1 250.00 Paty s Tablet Daily Trent, - M.DMaria C 08/14 Potassium 10/05 Hx Tablets 8Meq 30tab 1 tablet by Paty Chloride ER s mouth once Cotton, - daily M.D. 01/18 Ranitidine HCL 09/25 Hx Tablets 150mg 60tab take one 530.81 Paty /2011 s tablet by Cotton, - mouth twice M.D. 10/26 a Metformin HCL 06/29 Hx Tablets 500mg 15tab 1/4 tablet 250.00 Paty s once daily Cotton, - in evening M.D. 10/16 Lisinopril 06/29 Hx Tablets 5mg 90tab take 1 250.00 s tablet daily Cotton, - M.D. 08/03 Amlodipine 04/18 Hx 5mg. 1 tablet by Unknown mouth daily - 06/29 Omeprazole 02/06 Hx Capsules 20mg 30cap [address] bone once daily Ceci - M.D., FACP 03/30 Prandin 12/20 Hx Tablets 1mg 270ta 1tablet bs threee times Trent, - daily 30 M.D. before meals Levothyroxine 05/24 Hx Tablets 75mcg 90tab take 1 s tablet daily Trent, - M.D. 11/02 Prandin Hx Tablets 0.5mg 270ta 1 tablet 3 Paty /0000 bs times daily Trent, - before meals M.D. 12/20 Amlodipine Hx Tablets 2.5mg 90tab 1 tablet Unknown Besylate /0000 s once valerio;y - 04/18 Lisinopril Hx Tablets 40mg 90tab 1 tablet Paty /0000 s orally once Cotton, - daily M.D. 04/18 Amlodipine Hx 5mg. 1 tablet by Unknown /0000 mouth daily - 04/18 Valium Hx Tablets 5mg 10tab 1 by mouth Paty /0000 s every day as Cotton, - needed M.D. 10/11 spasm Nitrostat Hx Tablets 0.4mg 25tab one sl q5min Paty /0000 Sub s up to 3 Cotton, - doses prn M.D. 10/11 Omeprazole Hx Capsules 20mg 90cap Take 1 530.81 Paty /0000 DR bone Capsule Trent, - Daily M.D. 02/14 Glimepiride 00/00 Hx Tablets 2mg 90tab Take 4 250.00 Unknown /0000 s Tablets By - Mouth bid 02/03 Atenolol 00/00 Hx Tablets 25mg 90tab Take 1 Paty /0000 s Tablet Once Cotton, - Daily M.D. 07/08 Lantus Tashiaostar Hx Solution 100Unit/M 15ml inject 28 Unknown /0000 L units - subcutaneous 07/04 ly /2016 bedtime Ibuprofen Hx Tablets 200mg 1-2 [...] CPT Code Status Date Vaccine Lot # 11930 Given 11/29/2016 Fluzone High Dose Q2039 Given 11/22/2015 Flu Vaccine NOS 51071 Given 11/16/2014 Fluzone High Dose 31816 Given 02/08/2014 Pneumococcal Conjugate Vaccine 13 Valent For [id number] Intramuscular Use 01772 Given 11/24/2013 Fluzone High Dose 61601 Given 11/12/2012 Fluzone High Dose Q2038 Given 10/30/2011 Fluzone Vaccine [id number] 29798 Given 12/04/2010 Influenza Virus 3Yrs & Over 65005 Given 02/17/2009 Influenza Virus Vaccine, Pandemic Formulation 46315 Given 12/13/2008 Influenza Virus 3Yrs & Over 60628 Given 12/18/2007 Influenza Virus 3Yrs & Over Vital Signs Date Vital Result Comment 02/15/2017 Height 62.5 inches 5'2.50" Weight 161.50 [...] Test Date Test Result H/L Range Note Lipid Profile (Trig/Chol/HDL) 02/11/2017 Triglycerides 88 mg/dL 1 Cholesterol 145 mg/dL 2 HDL Cholesterol 66.1 mg/dL 3 LDL Cholesterol 61 mg/dL 4 Urine Microalbumin Random 02/11/2017 Ur Microalbumin (mg/L) [...] Egfr Non- 72.3 >60 Egfr 93.0 >60 5 Laboratory test finding 02/11/2017 Erythrocyte Sed Rate [...] Intestine 13.4 IU/L 0.0-11.0 Alp Placental NotPresent 6 Laboratory test finding 01/25/2017 Erythrocyte Sed Rate 13 mm/Hr 0-40 7 C Reactive Protein 2.84 mg/L < 5.00 8 CBC Auto Diff 01/25/2017 White Blood Count [...] Egfr Non- 59.0 >60 Egfr 75.9 >60 9 Laboratory test finding 12/12/2016 Erythrocyte Sed Rate 33 mm/Hr 0-40 10 C Reactive Protein 11.32 mg/L High < 5.00 11 Basic Metabolic Panel 12/12/2016 Sodium 139 mmol/L 133-145 Potassium 4.0 mmol/L 3.5-5.0 Chloride 104 mmol/L 101-111 Co2 Carbon Dioxide 27 mmol/L 22-32 Anion Gap 8 mmol/L 2-11 Glucose 169 mg/dL High 70-100 Blood Urea Nitrogen 13 mg/dL 6-24 Creatinine 0.79 mg/dL 0.51-0.95 BUN/Creatinine Ratio 16.5 8-20 Calcium 9.6 mg/dL 8.6-10.3 Egfr Non- 70.4 >60 Egfr 90.5 >60 12 Laboratory test finding 11/06/2016 Nuclear AB (Jane) By <1:80 (Negative) 13 Ifa Igg Rheumatoid Factor <15 IU/mL <15 14 Cyclic Citrullinated Pep Igg <15.6 U 15 Comp Metabolic Panel 11/06/2016 Sodium 137 mmol/L [...] Egfr Non- 75.9 >60 Egfr 97.6 >60 16 Laboratory test finding 11/01/2016 C Reactive Protein 38.09 mg/L High &lt ; 5.00 17 Erythrocyte Sed Rate 64 mm/Hr High 0-40 Laboratory test finding 11/01/2016 Lyme Disease Serology Negative Negative 18 Laboratory test finding 10/10/2016 Creatine Kinase(CK) 34 U/L 10-223 C Reactive Protein 31.29 mg/L High < 5.00 19 Erythrocyte Sed Rate 57 mm/Hr High 0-40 Laboratory test finding 09/26/2016 Erythrocyte Sed Rate 51 mm/Hr High 0- 40 C Reactive Protein 27.16 mg/L High < 5.00 20 Laboratory test finding 08/28/2016 Erythrocyte Sed Rate [...] Egfr Non- 78.3 >60 Egfr 100.8 >60 21 Laboratory test finding 08/28/2016 C Reactive Protein 19.29 mg/L High &lt ; 5.00 22 Protein Electrophoresis 08/28/2016 Total Protein(Pep) 7.2 g/dL 6.3 - 7.9 Albumin 3.2 g/dL 3.4-4.7 Alpha-1 Globulin 0.4 g/dL 0.1-0.3 Alpha-2 Globulin 1.2 g/dL 0.6-1.0 Beta Globulin 1.0 g/dL 0.7-1.2 Gamma Globulin 1.5 g/dL 0.6-1.6 Albumin/Globulin Ratio 0.79 Impression See Comment 23 Lipid Profile (Trig/Chol/HDL) 01/30/2016 Triglycerides 92 mg/dL 24 Cholesterol 140 mg/dL 25 HDL Cholesterol 53.1 mg/dL 26 LDL Cholesterol 69 mg/dL 27 Comp Metabolic Panel 01/30/2016 Sodium 138 mmol/L [...] Egfr Non- 61.5 >60 Egfr 79.1 >60 28 Urine Microalbumin Random 01/30/2016 Urine Creatinine 117.49 mg/dL Ur Microalbumin (mg/L) 17.8 mg/L Urine Microalbumin/Creatinine 15.1 ug/mg <31 Laboratory test finding 01/30/2016 TSH (Thyroid Stim Horm) 1.59 mcIU/mL 0.34-5.60 Urine Microalbumin 05/10/2015 Ur Microalbumin (mg/L) 8.0 mg/L 29 Random Urine Creatinine 155.67 mg/dL 29 Urine Microalbumin/Creatinine 5.1 ug/mg <31 29 Comp Metabolic Panel 05/10/2015 Sodium 139 mmol/L 133-145 29 Potassium 3.9 mmol/L 3.5-5.0 29 Chloride 105 mmol/L 101-111 29 Co2 Carbon Dioxide 28 mmol/L 22-32 29 Anion Gap 6 mmol/L 2-11 29 Glucose 131 mg/dL High 70-100 29 Blood Urea Nitrogen 15 mg/dL 6-24 29 Creatinine 0.85 mg/dL 0.51-0.95 29 BUN/Creatinine Ratio 17.6 8-20 29 Calcium 9.4 mg/dL 8.6-10.3 29 Total Protein 7.0 g/dL 6.4-8.9 29 Albumin 4.2 g/dL 3.2-5.2 29 Globulin 2.8 g/dL 2-4 29 Albumin/Globulin Ratio 1.5 1-3 29 Total Bilirubin 0.60 mg/dL 0.2-1.0 29 Alkaline Phosphatase 88 U/L 34-104 29 Alt 19 U/L 7-52 29 Ast 15 U/L 13-39 29 Egfr Non- 64.9 >60 29 Egfr 83.4 >60 29, 30 Lipid Profile (Trig/Chol/HDL) 05/10/2015 Triglycerides 83 mg/dL 29, 31 Cholesterol 130 mg/dL 29, 32 HDL Cholesterol 58.4 mg/dL 29, 33 LDL Cholesterol 55 mg/dL 29, 34 Liver Function Panel 05/10/2015 Direct Bilirubin 0.10 mg/dL 0.03-0.18 29 Indirect Bilirubin 0.5 mg/dL 0.3-1.0 29 Laboratory test finding 05/10/2015 TSH (Thyroid Stim 1.59 ?IU/mL 0.34- 5.60 29, 35 Horm) Vitamin B12 730 pg/mL 180-914 29, 36 CBC Auto Diff 01/11/2015 White Blood Count [...] Egfr Non- 65.9 >60 Egfr 84.8 >60 37 Laboratory test finding 01/11/2015 Magnesium 1.8 mg/dL Low 1.9-2.7 Troponin-I (TnI) 0.00 ng/mL <0.03 38 TSH (Thyroid Stim Horm) 0.50 ?IU/mL 0.34-5.60 Laboratory test 01/06/2015 Gardnerella/Yeast: Vaginal SEE RESULT BELOW 39 finding Dna Ua And Culture 01/06/2015 Urine Culture And SEE RESULT BELOW 40 Sensitivity Sensitivities Ua Routine 01/06/2015 Ua Specific [place] 1.020 Ua PH 5 Ua Color yellow Ua Appera cloudy Ua WBC trace Ua Protein neg Ua Glucose + Ua Ketones neg Ua Bilirubin neg Ua Urobilinogen neg Ua Nitrite neg Ua Occult Blood moderate Laboratory test 12/29/2014 Hemoglobin A1c (Glyco 7.4 % High Less than 41 finding HGB) 6.0 Laboratory test 12/29/2014 Urine Culture And SEE RESULT 42 finding Sensitivities BELOW Ua And Culture 12/20/2014 Urine Culture And SEE RESULT 43 Sensitivity Sensitivities BELOW Urinalysis Profile 12/20/2014 Urine Color Yellow Urine Appearance Cloudy Urine Specific [place] 1.020 1.010-1.030 Urine pH 5.0 5-9 Urine [...] Present Absent Ua Routine 12/20/2014 Ua Specific [place] 1.020 Ua PH 5.0 Ua Color dorothy Ua Appera clear Ua WBC neg Ua Protein neg Ua Glucose 2000+ Ua Ketones trace Ua Bilirubin small Ua Urobilinogen normal Ua Nitrite neg Ua Occult Blood large Comp Metabolic Panel 05/03/2014 Sodium 140 mmol/L 133-145 44 Potassium 4.0 mmol/L 3.5-5.0 44 Chloride 106 mmol/L 101-111 44 Co2 Carbon Dioxide 28 mmol/L 22-32 44 Anion Gap 6 mmol/L 2-11 44 Glucose 114 mg/dL High 70-100 44 Blood Urea Nitrogen 11 mg/dL 6-24 44 Creatinine 0.74 mg/dL 0.51-0.95 44 BUN/Creatinine Ratio 14.9 8-20 44 Calcium 9.4 mg/dL 8.6-10.3 44 Total Protein 7.1 g/dL 6.4-8.9 44 Albumin 4.3 g/dL 3.2-5.2 44 Globulin 2.8 g/dL 2-4 44 Albumin/Globulin Ratio 1.5 1-3 44 Total Bilirubin 0.60 mg/dL 0.2-1.0 44 Alkaline Phosphatase 84 U/L 34-104 44 Alt 22 U/L 7-52 44 Ast 17 U/L 13-39 44 Egfr Non- 76.3 >60 44 Egfr 98.1 >60 44, 45 Lipid Profile (Trig/Chol/HDL) 05/03/2014 Triglycerides 110 mg/dL 44, 46 Cholesterol 141 mg/dL 44, 47 HDL Cholesterol 56.6 mg/dL 44, 48 LDL Cholesterol 62 mg/dL 44, 49 Laboratory test finding 05/03/2014 Vitamin B12 688 pg/mL 180-914 44, 50 TSH (Thyroid Stimulating Horm) 1.88 IU/mL 0.34-5.60 44, 51 Urine Microalbumin Random 05/03/2014 Ur Microalbumin (mg/L) 23.0 mg/L 44 Urine Creatinine 152.94 mg/dL 44 Urine Microalbumin/Creatinine 15.0 Less Than 31 44 Basic Metabolic Panel 12/01/2013 Sodium 137 mmol/L 133-145 Potassium 3.7 mmol/L 3.7-5.6 Chloride 105 mmol/L 101-111 Co2 Carbon Dioxide 25 mmol/L 22-32 Anion Gap 7 mmol/L 2-11 Glucose 167 mg/dL High 70-100 Blood Urea Nitrogen 18 mg/dL 6-24 Creatinine 0.81 mg/dL 0.51-0.95 BUN/Creatinine Ratio 22.2 High 8-20 Calcium 9.7 mg/dL 8.6-10.3 Egfr Non- 68.9 >60 Egfr 88.6 >60 52 Laboratory test finding 12/01/2013 Aldosterone 5.7 ng/dL <=21 53 Renin 5.7 ng/mL/h 54 Ua Routine 11/18/2013 Ua Specific [place] 1.010 Ua PH 6 Ua Color yellow Ua Appera cloudy Ua WBC trace Ua Protein neg Ua Glucose 2000++++ Ua Ketones neg Ua Bilirubin neg Ua Urobilinogen norm Ua Nitrite neg Ua Occult Blood large 200 Urine Culture And Sensitivities 11/18/2013 Urine Culture (SEE NOTE) 55 Basic Metabolic Panel 08/14/2013 Sodium 139 mmol/L 133-145 Potassium 3.8 mmol/L 3.7-5.6 Chloride 108 mmol/L 101-111 Co2 Carbon Dioxide 22 mmol/L 22-32 Anion Gap 9 mmol/L 2-11 Glucose 212 mg/dL High 70-100 Blood Urea Nitrogen 15 mg/dL 6-24 Creatinine 0.79 mg/dL 0.51-0.95 BUN/Creatinine Ratio 19.0 8-20 Calcium 9.5 mg/dL 8.6-10.3 Egfr Non- 70.9 >60 Egfr 91.2 >60 56 Comp Metabolic Panel 07/08/2013 Sodium 140 mmol/L [...] Egfr Non- 76.5 >60 Egfr 98.4 >60 57 Lipid Profile (Trig/Chol/HDL) 05/28/2013 Triglycerides 87 mg/dL 58, 59 Cholesterol 128 mg/dL 58, 60 HDL Cholesterol 57.0 mg/dL 58, 61 LDL Cholesterol 54 mg/dL 58, 62 Urine Microalbumin 05/28/2013 Ur Microalbumin (mg/L) 38.0 mg/dL <30 58, 63 Random Urine Creatinine 161.41 mg/dL 58 Urine Microalbumin/Creatinine 23.5 Less Than 31 58 Laboratory test finding 02/03/2013 TSH (Thyroid Stimulating [...] Egfr Non- 81.8 >60 Egfr 105.2 >60 64 Laboratory test finding 10/02/2012 Hemoglobin A1c 7.6 % High Less than 6.0 65 Lipid Profile 10/02/2012 Triglycerides 109 mg/dL 40-200 (Trig/Chol/HDL) Cholesterol 125 mg/dL Less than 200 HDL Cholesterol 52 mg/dL 40-60 66 Cholesterol/HDL Ratio 2.4 Average 1-4.44 LDL Cholesterol 51.2 Less Than 100 67 Urine Microalbumin Random 10/02/2012 Ur Microalbumin (mg/L) 22.0 mg/L 68 Urine Creatinine 132.9 mg/dL Urine Microalbumin/Creatinine 16.6 Less Than 31 Laboratory test finding 08/14/2012 Hemoglobin A1c 7.7 High 5-7 Urine Culture And 07/17/2012 Urine Culture (SEE NOTE) 69 Sensitivities Ua Routine 07/17/2012 Ua Specific [place] 1.020 Ua PH 5 Ua Color yellow Ua Appera cloudy Ua WBC small Ua Protein neg Ua Glucose 1000 Ua Ketones neg Ua Bilirubin small Ua Urobilinogen neg Ua Nitrite neg Ua Occult Blood moderate Laboratory test finding 04/28/2012 Hemoglobin A1c 7.5 High 5-7 Ua Routine 03/05/2012 Ua Specific [place] 1.025 Ua PH 6 Ua Color yellow Ua Appera clear Ua WBC neg Ua Protein neg Ua Glucose +4 Ua Ketones neg Ua Bilirubin small Ua Urobilinogen neg Ua Nitrite neg Ua Occult Blood small + Urine Culture And Sensitivities 03/05/2012 Urine Culture (SEE NOTE) 70 Urinalysis W/Microscopic 03/05/2012 Urine Color Yellow Urine Appearance Turbid Urine Specific [place] 1.031 High 1.010-1.030 Urine Esterase Trace Negative Urine Nitrate Negative Negative Urine Urobilinogen Negative E.U./dL Negative Urine Protein Negative mg/dL Negative Urine pH 5.0 5-9 Urine Blood 1+ Negative Urine Ketones Negative mg/dL Negative Urine Bilirubin Negative Negative 71 Urine Glucose 3+ mg/dL Negative Urine WBC 1+ (<10 /hpf) None Seen Urine RBC None Seen None Seen Urine Epithelial Cells 1+ Squamous /hpf None Seen Bacteria Urine 1+ None Seen Crystals Urine Amorphous /lpf None Seen Laboratory test finding 01/14/2012 Hemoglobin A1c 7.7 High 5-7 Laboratory test finding 10/29/2011 Troponin-I 0 NG/ML 0-0.06 72 CBC Auto Diff 10/29/2011 White Blood Count [...] mmol/L 22-32 Anion Gap 6.0 mmol/L 2-11 73 Glucose 181 mg/dL High 70-100 BUN 12 mg/dL 6-24 Creatinine 0.8 mg/dL 0.50-1.40 One Over Creatinine 1.25 BUN/Creatinine Ratio 15.0 8-20 Calcium 9.5 mg/dL 8.1-9.9 Total Protein 6.8 GM/DL 6.2-8.1 Albumin 4.0 GM/DL 3.2-5.2 Globulin 2.8 GM/DL 2-4 Albumin/Globulin Ratio 1.4 1-3 Bilirubin Total 0.4 mg/dL 0.4-1.5 74 Alkaline Phosphatase 91 U/L 30-110 Alt (SGPT) 28 U/L 14-54 Ast (Sgot) 26 U/L 12-42 eGFR Non- 70.3 > 60 eGFR 90.4 > 60 75 Laboratory test finding 10/29/2011 Troponin-I 0 NG/ML 0-0.06 76 Urinalysis W/Microscopic 10/29/2011 Ua Color YELLOW Yellow Appearance-Urine CLEAR Clear Specific [place]-Ur 1.014 1.010-1.030 Esterase-Urine TRACE Negative Nitrite NEGATIVE Negative [id number] NEGATIVE Negative Protein-Urine NEGATIVE Negative PH-Urine 5.0 5-9 Blood-Urine 1+ Negative Ketones-Urine NEGATIVE Negative Bilirubin-Ur NEGATIVE Negative Glucose-Urine 2+ Negative WBC-Urine 0-2 0-5 RBC-Urine 0-2 0-2 Epith Cells-Ur SMALL None Bacteria-Urine TRACE None Urinalysis W/Microscopic 10/19/2011 Ua Color YELLOW Yellow Appearance-Urine CLEAR Clear Specific [place]-Ur 1.017 1.010-1.030 Esterase-Urine 1+ Negative Nitrite NEGATIVE Negative [id number] NEGATIVE Negative Protein-Urine NEGATIVE Negative PH-Urine 5.0 5-9 Blood-Urine 1+ Negative Ketones-Urine NEGATIVE Negative Bilirubin-Ur NEGATIVE Negative Glucose-Urine 3+ Negative WBC-Urine 1-6 0-5 RBC-Urine 0-2 0-2 Mucus Urine MODERATE None Epith Cells-Ur MODERATE None Bacteria-Urine 1+ None Urine Culture & 10/19/2011 M <SEE 77 Sensitivi NOTE> Lipid Profile 10/03/2011 Triglyceride 103 mg/dL 40-200 (Trig/Chol/HDL) Cholesterol 130 mg/dL Less Than 200 78 High Density Lipoprotein 48 mg/dL 40-60 79 Cholesterol/HDL Ratio 2.71 AVERAGE 1-4.44 Low Density Lipoprotein 61 mg/dL Less Than 100 80 Comp Metabolic Panel 10/03/2011 Sodium 140 mmol/L 135-145 Potassium 3.5 mmol/L 3.5-5.0 Chloride 106 mmol/L 101-111 Co2 (Carbon Dioxide) 29.0 mmol/L 22-32 Anion Gap 5.0 mmol/L 2-11 81 Glucose 172 mg/dL High 70-100 BUN 10 mg/dL 6-24 Creatinine 0.7 mg/dL 0.50-1.40 One Over Creatinine 1.42 BUN/Creatinine Ratio 14.3 8-20 Calcium 9.2 mg/dL 8.1-9.9 Total Protein 6.4 GM/DL 6.2-8.1 Albumin 3.8 GM/DL 3.2-5.2 Globulin 2.6 GM/DL 2-4 Albumin/Globulin Ratio 1.5 1-3 Bilirubin Total 0.8 mg/dL 0.4-1.5 82 Alkaline Phosphatase 92 U/L 30-110 Alt (SGPT) 27 U/L 14-54 Ast (Sgot) 18 U/L 12-42 eGFR Non- 82.0 > 60 eGFR 105.5 > 60 83 Urine Microalbumin Random 10/03/2011 Microalbumin (MG/L) 24.0 mg/L Urine Creatinine 155.4 mg/dL Gerber Alb/Creatinine Ratio 15.4 UG/MG Less Than 30 84 Laboratory test finding 10/03/2011 TSH 1.95 MIU/ML 0.34-5.60 Hemoglobin A1c 7.6 % High Less Than 6.0 85 Urine Culture 08/21/2011 M 86 & Sensitivi <SEE NOTE> Laboratory test 07/05/2011 Hemoglobin A1c 7.4 High 5-7 finding Laboratory test 06/19/2011 Culture 87 finding Sensitivity/Gram <SEE NOTE> St Laboratory test 04/12/2011 Hemoglobin A1c 7.3 % High Less Than 88 finding 6.0 Potassium 4.0 mmol/L 3.5-5.0 Laboratory test finding 01/15/2011 TSH 1.38 MIU/ML 0.34-5.60 Lipid Profile (Trig/Chol/HDL) 01/15/2011 Triglyceride 137 mg/dL 40-200 Cholesterol 136 mg/dL Less Than 200 89 High Density Lipoprotein 44 mg/dL 40-60 90 Cholesterol/HDL Ratio 3.09 AVERAGE 1-4.44 Low Density Lipoprotein 65 mg/dL Less Than 100 91 Comp Metabolic Panel 01/15/2011 Sodium 140 mmol/L 135-145 Potassium 3.9 mmol/L 3.5-5.0 Chloride 107 mmol/L 101-111 Co2 (Carbon Dioxide) 28.0 mmol/L 22-32 Anion Gap 5.0 mmol/L 2-11 92 Glucose 197 mg/dL High 70-100 BUN 14 mg/dL 6-24 Creatinine 0.8 mg/dL 0.50-1.40 One Over Creatinine 1.25 BUN/Creatinine Ratio 17.5 8-20 Calcium 9.3 mg/dL 8.1-9.9 Total Protein 7.0 GM/DL 6.2-8.1 Albumin 3.9 GM/DL 3.2-5.2 Globulin 3.1 GM/DL 2-4 Albumin/Globulin Ratio 1.3 1-3 Bilirubin Total 0.8 mg/dL 0.4-1.5 93 Alkaline Phosphatase 87 U/L 30-110 Alt (SGPT) 41 U/L 14-54 Ast (Sgot) 28 U/L 12-42 eGFR Non- 70.5 > 60 eGFR 90.7 > 60 94 Laboratory test 01/15/2011 Hemoglobin A1c 7.6 % High Less Than 95 finding 6.0 Laboratory test 11/16/2010 Clotest NEGATIVE finding Surgical Pathology 11/16/2010 Surgical Pathology 96 <SEE NOTE> CBC Auto Diff 10/16/2010 White [...] Eosinophils 0.1 0-0.6 Abs Basophils 0 0-0.2 97 Laboratory test finding 10/16/2010 Lipase 35 U/L 22-51 Comp Metabolic Panel 10/16/2010 Sodium 138 mmol/L 135-145 Potassium 4.1 mmol/L 3.5-5.0 Chloride 106 mmol/L 101-111 Co2 (Carbon Dioxide) 24.0 mmol/L 22-32 Anion Gap 8.0 mmol/L 2-11 98 Glucose 193 mg/dL High 70-100 BUN 10 mg/dL 6-24 Creatinine 0.70 mg/dL 0.50-1.40 One Over Creatinine 1.40 BUN/Creatinine Ratio 14.3 8-20 Calcium 9.5 mg/dL 8.1-9.9 Total Protein 6.7 GM/DL 6.2-8.1 Albumin 4.1 GM/DL 3.2-5.2 Globulin 2.6 GM/DL 2-4 Albumin/Globulin Ratio 1.6 1-3 Bilirubin Total 0.6 mg/dL 0.4-1.5 99 Alkaline Phosphatase 72 U/L 30-110 Alt (SGPT) 27 U/L 14-54 Ast (Sgot) 22 U/L 12-42 eGFR Non- 82.3 > 60 eGFR 105.8 > 60 100 Comp Metabolic Panel 10/04/2010 Sodium 139 mmol/L 135-145 Potassium 3.4 mmol/L Low 3.5-5.0 Chloride 106 mmol/L 101-111 Co2 (Carbon Dioxide) 26.0 mmol/L 22-32 Anion Gap 7.0 mmol/L 2-11 101 Glucose 248 mg/dL High 70-100 BUN 9 mg/dL 6-24 Creatinine 0.90 mg/dL 0.50-1.40 One Over Creatinine 1.10 BUN/Creatinine Ratio 10.0 8-20 Calcium 9.2 mg/dL 8.1-9.9 Total Protein 6.5 GM/DL 6.2-8.1 Albumin 4.0 GM/DL 3.2-5.2 Globulin 2.5 GM/DL 2-4 Albumin/Globulin Ratio 1.6 1-3 Bilirubin Total 0.8 mg/dL 0.4-1.5 102 Alkaline Phosphatase 72 U/L 30-110 Alt (SGPT) 25 U/L 14-54 Ast (Sgot) 23 U/L 12-42 eGFR Non- 61.5 > 60 eGFR 79.2 > 60 103 Urine Microalbumin Random 10/04/2010 Microalbumin (MG/L) 30.0 mg/L Urine Creatinine 222.74 mg/dL Gerber Alb/Creatinine Ratio 13.4 UG/MG Less Than 30 104 Laboratory test 10/04/2010 Hemoglobin A1c 7.8 % High Less Than 6.0 105 finding Surgical Pathology 08/10/2010 Surgical Pathology 106 --- <SEE NOTE> Comp Metabolic Panel 06/26/2010 Sodium 137 mmol/L 135-145 Potassium 3.5 mmol/L 3.5-5.0 Chloride 106 mmol/L 101-111 Co2 (Carbon Dioxide) 23.0 mmol/L 22-32 Anion Gap 8.0 mmol/L 2-11 107 Glucose 275 mg/dL High 70-100 BUN 13 mg/dL 6-24 Creatinine 0.70 mg/dL 0.50-1.40 One Over Creatinine 1.40 BUN/Creatinine Ratio 18.6 8-20 Calcium 9.0 mg/dL 8.1-9.9 Total Protein 6.5 GM/DL 6.2-8.1 Albumin 3.8 GM/DL 3.2-5.2 Globulin 2.7 GM/DL 2-4 Albumin/Globulin Ratio 1.4 1-3 Bilirubin Total 0.8 mg/dL 0.4-1.5 108 Alkaline Phosphatase 67 U/L 30-110 Alt (SGPT) 25 U/L 14-54 Ast (Sgot) 22 U/L 12-42 eGFR Non- 82.3 > 60 eGFR 105.8 > 60 109 Laboratory test finding 06/26/2010 Hemoglobin A1c 7.6 % High Less Than 6.0 110 Laboratory test finding 04/15/2010 PTT (Aptt) 26.4 25.15-38.53 Comp Metabolic Panel 04/15/2010 Sodium 138 mmol/L 135-145 Potassium 4.2 mmol/L 3.5-5.0 Chloride 105 mmol/L 101-111 Co2 (Carbon Dioxide) 27.0 mmol/L 22-32 Anion Gap 6.0 mmol/L 2-11 111 Glucose 195 mg/dL High 70-100 BUN 15 mg/dL 6-24 Creatinine 0.90 mg/dL 0.50-1.40 One Over Creatinine 1.10 BUN/Creatinine Ratio 16.7 8-20 Calcium 9.4 mg/dL 8.1-9.9 Total Protein 7.0 GM/DL 6.2-8.1 Albumin 4.1 GM/DL 3.2-5.2 Globulin 2.9 GM/DL 2-4 Albumin/Globulin Ratio 1.4 1-3 Bilirubin Total 0.9 mg/dL 0.4-1.5 112 Alkaline Phosphatase 77 U/L 30-110 Alt (SGPT) 34 U/L 14-54 Ast (Sgot) 32 U/L 12-42 eGFR Non- 61.5 > 60 eGFR 79.2 > 60 113 Laboratory test finding 04/15/2010 Lipase 33 U/L 22-51 CPK (Creatine Kinase) 81 U/L 0-170 CKMB 04/15/2010 CKMB In NG/ML 1.1 NG/ML 0.3-4.0 % CKMB 1 %MB 0-9 114 Laboratory test finding 04/15/2010 Troponin-I 0 NG/ML 0-0.06 115 Hemogram 04/15/2010 White Blood Count 6.9 CUMM [...] International Normalized Ratio 04/15/2010 Inr 0.90 0.82-1.17 116 Protime 10.5 SEC 10.2-14.8 117 Laboratory test finding 03/23/2010 Hemoglobin A1c 7.1 % High Less Than 6.0 118 Laboratory test finding 12/15/2009 TSH 1.84 MIU/ML 0.34-5.60 Hemoglobin A1c 7.3 % High Less Than 6.0 119 Lipid Profile (Trig/Chol/HDL) 12/15/2009 Triglyceride 99 mg/dL 40-200 Cholesterol 133 mg/dL Less Than 200 120 High Density Lipoprotein 54 mg/dL 40-60 121 Cholesterol/HDL Ratio 2.46 AVERAGE 1-4.44 Low Density Lipoprotein 59 mg/dL Less Than 100 122 Comp Metabolic Panel 12/15/2009 Sodium 140 mmol/L 135-145 Potassium 4.1 mmol/L 3.5-5.0 Chloride 106 mmol/L 101-111 Co2 (Carbon Dioxide) 29.0 mmol/L 22-32 Anion Gap 5.0 mmol/L 2-11 123 Glucose 165 mg/dL High 70-100 124 BUN 13 mg/dL 6-24 Creatinine 0.80 mg/dL 0.50-1.40 One Over Creatinine 1.20 BUN/Creatinine Ratio 16.3 8-20 Calcium 9.5 mg/dL 8.1-9.9 Total Protein 7.2 GM/DL 6.2-8.1 Albumin 4.2 GM/DL 3.2-5.2 Globulin 3.0 GM/DL 2-4 Albumin/Globulin Ratio 1.4 1-3 Bilirubin Total 0.7 mg/dL 0.4-1.5 125 Alkaline Phosphatase 73 U/L 30-110 Alt (SGPT) 31 U/L 14-54 Ast (Sgot) 23 U/L 12-42 eGFR Non- 75.2 > 60 eGFR 90.9 > 60 126 Creatinine Clearance 09/12/2009 Creatinine Random Urine 75.82 [...] mmol/L 22-32 Anion Gap 7.0 mmol/L 2-11 127 Glucose 160 mg/dL High 70-100 128 BUN 13 mg/dL 6-24 Creatinine 0.70 mg/dL 0.50-1.40 One Over Creatinine 1.40 BUN/Creatinine Ratio 18.6 8-20 Calcium 9.3 mg/dL 8.1-9.9 129 Total Protein 6.9 GM/DL 6.2-8.1 Albumin 4.0 GM/DL 3.2-5.2 Globulin 2.9 GM/DL 2-4 Albumin/Globulin Ratio 1.4 1-3 Bilirubin Total 0.6 mg/dL 0.4-1.5 130 Alkaline Phosphatase 77 U/L 30-110 Alt (SGPT) 30 U/L 14-54 Ast (Sgot) 20 U/L 12-42 eGFR Non- 87.7 > 60 eGFR 106.1 > 60 131 Urine Microalbumin Random 09/12/2009 Microalbumin (MG/L) 15.0 mg/L Urine Creatinine 181.39 mg/dL Gerber Alb/Creatinine Ratio 8.2 UG/MG Less Than 30 132 Laboratory test finding 09/12/2009 Hemoglobin A1c 7.0 % High Less Than 6.0 133 1 Desirable: <150 Borderline High: 150-199 High: 200-499 Very High: >500 2 Desirable: <200 Borderline High: 200-239 High: >239 3 Low: <40 Desirable: 40-60 High: >60 4 Desirable: <100 Near Optimal: 100-129 Borderline High: 130-159 High: 160-189 Very High: >189 5 Because ethnic data is not always readily [...] 15-29 5 Kidney failure <15 (or dialysis) 6 REFERENCE VALUE Not present Test Performed by: [facility] [address] [address] 7 Please schedule 2 days before follow up 8 Acute inflammation: >10.00 9 Because ethnic data is not always readily [...] 15-29 5 Kidney failure <15 (or dialysis) 10 Please check xrays today 11 Acute inflammation: >10.00 12 Because ethnic data is not always readily [...] 15-29 5 Kidney failure <15 (or dialysis) 13 <1:80 (Negative) REFERENCE VALUE <1:80 (Negative) Test Performed by: [facility] [address] [place] [address] 14 Test Performed by: [facility] [address] [place] [address] 15 REFERENCE VALUE <20.0 (Negative) Test Performed by: [address] [address] 16 Because ethnic data is not always readily [...] 15-29 5 Kidney failure <15 (or dialysis) 17 Acute inflammation: >10.00 18 Serologic response to B. burgdorferi infection is not detected, but cannot rule out early infection during which low or undetectable antibody levels to B. burgdorferi may be present. If clinically indicated, a new serum specimen should be submitted in 7-14 days. Test Performed by: [address] [address] 19 Acute inflammation: >10.00 20 Acute inflammation: >10.00 21 Because ethnic data is not always readily [...] 15-29 5 Kidney failure <15 (or dialysis) 22 Acute inflammation: >10.00 23 RESULT: No apparent monoclonal protein on serum electrophoresis. Test Performed by: [facility] [address] [place] [address] 24 Desirable <150 Borderline high 150-199 High 200-499 Very High >500 25 Desirable <200 Borderline high 200-239 High >239 26 Low <40 Desirable: 40-60 High: >60 27 Desirable: <100 mg/dL Near Optimal: 100-129 mg/dL Borderline High: 130-159 mg/dL High: 160-189 mg/dL Very High: >189 mg/dL 28 Because ethnic data is not always readily [...] 15-29 5 Kidney failure <15 (or dialysis) 29 PT IS FASTING 30 Because ethnic data is not always readily [...] 15-29 5 Kidney failure <15 (or dialysis) 31 Desirable <150 Borderline high 150-199 High 200-499 Very High >500 32 Desirable <200 Borderline high 200-239 High >239 33 Low <40 Desirable: 40-60 High: >60 34 Desirable: <100 mg/dL Near Optimal: 100-129 mg/dL Borderline High: 130-159 mg/dL High: 160-189 mg/dL Very High: >189 mg/dL 35 PT IS FASTING 36 Normal Range 180 to 914 Indeterminate Range 145 to 180 Deficient Range <145 37 Because ethnic data is not always readily [...] 15-29 5 Kidney failure <15 (or dialysis) 38 Reference Range and Interpretation: TnI (ng/mL) Interpretation Less Than 0.03 ng/mL Not supportive of diagnosis of NV 0.03 - 0.50 ng/mL Indeterminate: suggest serial studies if clinically indicated. Greater than 0.5 ng/mL Consistent with diagnosis of NV 39 SEE RESULT BELOW Name: MARCOS JOHNSTON : [address]: Paty Newman MD Acct: [id number] Unit: [id number] AGE: 74 Location: [facility] Re01/06/15 SEX: F Status: REG REF SPEC: [id number] JASEN: 01/06/15-[address] [facility] [address]: Paty Newman MD REQ: [id number] RECD: 01/06/15 STATUS: COMP _ SOURCE: VAGINAL [...] performed at Main Lab DEPARTMENT OF PATHOLOGY, [address] [place] [address] Kojo Holley M.D. Director [facility] # [id number] Patient: MARCOS JOHNSTON [id number] (Continued) Specimen: [id number] Collected: 01/06/15-1338 Received: 01/06/15-2321 (Continued) Procedure Result Verified Site Trichomonas: Vaginal DNA Probe Final (continued) 01/07/15- 1023 The presence or absence of T. vaginalis cannot be used as a test for therapeutic success or failure. * ML - MAIN LAB ([facility]) . END OF REPORT * ML=Testing performed at Main Lab DEPARTMENT OF PATHOLOGY, [address] [place] [address] Kojo Holley M.D. Director [facility] # [id number] 40 SEE RESULT BELOW Name: MARCOS JOHNSTON : [address]: Paty Newman MD Acct: [id number] Unit: [id number] AGE: 74 Location: [facility] Re01/06/15 SEX: F Status: REG REF SPEC: [id number] JASEN: 01/06/[address] [facility] [address]: Paty Newman MD REQ: [id number] RECD: 01/06/15 STATUS: COMP _ SOURCE: URINE SPDESC: ORDERED: Urine Culture Procedure Result Verified Site Urine Culture Final 01/08/15- 1032 ML No Growth Day 2 (<1,000 CFU/mL) * ML - MAIN LAB ([facility]) . END OF REPORT * ML=Testing performed at Main Lab DEPARTMENT OF PATHOLOGY, [address] [place] [address] Kojo Holley M.D. Director [facility] # [id number] 41 Therapeutic target for the treatment of diabetes Mellitus patients is <7% HBA1C, and in selective patients <6.0%.Please refer to [place] [employer] Diabetic care guidelines for further information. 42 SEE RESULT BELOW Name: MARCOS JOHNSTON : [address]: Kiersten Gonzalez MD Acct: [id number] Unit: [id number] AGE: 74 Location: [facility] Re12/29/14 SEX: F Status: DEP ER SPEC: [id number] JASEN: 12/29/[address] [facility] [address]: Kiersten Gonzalez MD REQ: [id number] RECD: 12/29/14 STATUS: BARRY HILARIO DR: [facility] Paty Newman MD _ SOURCE: URINE SPDESC: ORDERED: Urine Culture Procedure Result Verified Site Urine Culture Final 12/31/14- 1035 ML Organism 1 NORMAL ANASTACIA [place] Count 10-25,000 (Moderate) CFU/ML * ML - MAIN LAB ([facility]) . END OF REPORT * ML=Testing performed at Main Lab DEPARTMENT OF PATHOLOGY, [address] [place] [address] Kojo Holley M.D. Director [facility] # [id number] 43 SEE RESULT BELOW Name: VICKIEMARCOS : [address]: Yulissa Birmingham NP Acct: [id number] Unit: [id number] AGE: 74 Location: [facility] Re12/20/14 SEX: F Status: REG REF SPEC: [id number] JASEN: 12/20/14-[address]: Yulissa Birmingham NP REQ: [id number] RECD: 12/20/14 STATUS: COMP _ SOURCE: [facility]: ORDERED: Urine Culture Procedure Result Verified Site Urine Culture Final 12/22/14- 0935 ML Organism 1 ESCHERICHIA COLI [place] Count >100,000 (Many) CFU/ML 1. ESCHERICHIA COLI [...] antibiotic reporting. * ML - MAIN LAB ([facility]) . END OF REPORT * ML=Testing performed at Main Lab DEPARTMENT OF PATHOLOGY, [address] [place] [address] Kojo Holley M.D. Director [facility] # [id number] 44 FASTING 45 Because ethnic data is not always readily [...] 15-29 5 Kidney failure <15 (or dialysis) 46 Desirable <150 Borderline high 150-199 High 200-499 Very High >500 47 Desirable <200 Borderline high 200-239 High >239 48 Low <40 Desirable: 40-60 High: >60 49 Desirable <100 Near Optimal 100-129 Borderline high 130-159 High 160-189 Very High >189 50 Normal Range 180 to 914 Indeterminate Range 145 to 180 Deficient Range <145 51 FASTING 52 Because ethnic data is not always readily [...] 15-29 5 Kidney failure <15 (or dialysis) 53 ADDITIONAL INFORMATION Reference range for patients 11 years and older is based on upright A.M. collection from subjects without sodium restrictions. Test Performed by: [facility] [place] [address] Supervisor Incising: Earl Maurice M.D. 54 REFERENCE VALUE (Peripheral vein specimen) Na-deplete, upright: Mean: 5.9 Range: 2.9-10.8 Na-replete, upright: Mean: 1.0 Range: <=0.6-3.0 Test Performed by: [place] [address] Supervisor Incising: Earl Maurice M.D. 55 RUN DATE: 11/20/13 [facility] LAB LIVE PAGE 1 RUN TIME: 1126 [address] [place], [place] [address] Specimen Inquiry Name: MARCOS JOHNSTON : [address]: Lucas Tanner NP Acct: [id number] Unit: [id number] AGE: 73 Location: [facility] Re11/18/13 SEX: F Status: REG REF SPEC: [id number] JASEN: 11/18/13-[address] [facility] [address]: Lucas Tanner NP REQ: [id number] RECD: 11/18/131731 STATUS: COMP _ SOURCE: URINE SPDESC: ORDERED: Urine Culture QUERIES: Medent Number [id number] Procedure Result Verified Site Urine Culture Final 11/20/13- 1127 ML Organism 1 ESCHERICHIA COLI [place] Count >100,000 (Many) CFU/ML 1. ESCHERICHIA COLI [...] performed at Main Lab DEPARTMENT OF PATHOLOGY, [address] [place] [address] Kojo Holley M.D. Director [facility] # [id number] 56 Because ethnic data is not always readily [...] 15-29 5 Kidney failure <15 (or dialysis) 57 Because ethnic data is not always [...] 5 Kidney failure <15 (or dialysis) 58 PT IS FASTING 59 Desirable <150 Borderline high 150-199 High 200-499 Very High >500 60 Desirable <200 Borderline high 200-239 High >239 61 Low <40 Desirable: 40-60 High: >60 62 Desirable <100 Near Optimal 100-129 Borderline high 130-159 High 160-189 Very High >189 63 Microalbuminuria in a random sample is defined as: Microalbumin/Creatinine ratio of 30-299 ug/mg. 64 Because ethnic data is not always readily [...] 15-29 5 Kidney failure <15 (or dialysis) 65 Therapeutic target for the treatment of diabetes Mellitus patients is <7% HBA1C, and in selective patients <6.0%.Please refer to [place] [employer] Diabetic care guidelines for further information. 66 HDL Interpretation: Undesirable: High Risk: Less than 40 mg/dL Desirable: Low Risk: Greater than 60 mg/dL 67 LDL Interpretation: Low Risk Optimal Level: LDL Less than 100 mg/dL Near or Above Optimal: LDL 100-129 mg/dL Borderline High Risk: LDL 130-159 mg/dL High Risk: LDL 160-189 mg/dL Very High Risk: LDL Greater than 189 mg/dL 68 Microalbuminuria in a random sample is defined as: Microalbumin/Creatinine ratio of 30-299 ug/mg. 69 RUN DATE: 07/19/12 [facility] LAB LIVE PAGE 1 RUN TIME: 10[address] [place], [place] [address] Specimen Inquiry Name: VICKIEMARCOS Manuel : [address]: Kaylie Ornelas MD Acct: [id number] Unit: [id number] AGE: 72 Location: [facility] Re07/17/12 SEX: F Status: REG REF SPEC: [id number] JASEN: 07/17/12-[address]: Kaylie Ornelas MD REQ: [id number] RECD: 07/17/12 STATUS: COMP _ SOURCE: URINE SPDESC: ORDERED: Urine Culture QUERIES: Medent Number [id number] Procedure Result Verified Site Urine Culture Final 07/19/12- 1043 ML Organism 1 NORMAL ANASTACIA [place] Count 1-10,000 (Few) CFU/ML END OF REPORT * ML=Testing performed at Main Lab DEPARTMENT OF PATHOLOGY, [facility] [place], [place] [address] Kojo Holley M.D. Director [facility] Permit #[id number] 70 RUN DATE: 03/08/12 [facility] LAB LIVE PAGE 1 RUN TIME: [address] [place] [address] Specimen Inquiry Name: MARCOS JOHNSTON : [address]: Gill Newman MD Acct: [id number] Unit: [id number] AGE: 72 Location: [facility] Re03/05/12 SEX: F Status: REG REF SPEC: [id number] JASEN: 03/05/[address] [facility] [address]: Trent WOMACK Gill SaucedoMaria C REQ: [id number] RECD: 03/06/12 STATUS: COMP _ SOURCE: URINE SPDESC: ORDERED: Urine Culture QUERIES: Medent Number [id number] Procedure Result Verified Site Urine Culture Final 03/08/12- 1136 ML Organism 1 NORMAL ANASTACIA [place] Count 10-25,000 (Moderate) CFU/ML END OF REPORT * ML=Testing performed at Main Lab DEPARTMENT OF PATHOLOGY, [address] [place] [address] Kojo Holley M.D. Director [facility] Permit #[id number] 71 Effective 01/30/12, bilirubin confirmation by ictotest is discontinued. False-positive results for bilirubin may occur due to color interference from large amounts of blood in the urine, very concentrated urine, or drugs that discolor urine such as phenazopyridine(Pyridium). 72 New Reference Range and Interpretation effective 12/05/2001 TnI (ng/ml) INTERPRETATION Less Than 0.06 ng/mL NOT SUPPORTIVE OF DIAGNOSIS OF NV 0.06 - 0.50 ng/ml INDETERMINATE: SUGGEST SERIAL STUDIES IF CLINICALLY INDICATED. Greater than 0.5 ng/mL CONSISTENT WITH DIAGNOSIS OF NV . 73 Anion gap measurement may be of limited value in the presence of any alkalosis, especially in a combined acid base disorder. . 74 A metabolite of Naproxen, O-desmethylnaproxen, has been shown to interfere with the Jendrassik-Jose Daniel method for measuring total bilirubin. Samples from patients who have taken Naproxen have shown spurious elevation in total bilirubin levels. 75 Because ethnic data is not always readily [...] 15-29 5 Kidney failure <15 (or dialysis) 76 New Reference Range and Interpretation effective 12/05/2001 TnI (ng/ml) INTERPRETATION Less Than 0.06 ng/mL NOT SUPPORTIVE OF DIAGNOSIS OF NV 0.06 - 0.50 ng/ml INDETERMINATE: SUGGEST SERIAL STUDIES IF CLINICALLY INDICATED. Greater than 0.5 ng/mL CONSISTENT WITH DIAGNOSIS OF NV . 77 RUN DATE: 10/21/11 [facility] NMI LIVE PAGE 1 RUN TIME: 1211 Specimen Inquiry RUN USER: INTERFACE Name: MARCOS JOHNSTON Accjerrod#: [id number] Status: REG REF Re10/19/11 Age/Sex: 71/F Unit#: [id number] Location: : 38 SPEC #: [id number] JASEN: 10/19/11-4369 STATUS: COMP REQ #: [id number] RECD: 10/19/11-[address] [facility] [address]: Stephanie Thibodeaux MD SOURCE: URINE ENTR: 10/19/11-1256 [facility] DR: NISSA: ORDERED: URINE C S QUERIES: MEDENT REQUISITION # [id number] SPECIMEN DESCRIPTION: URINE, CLEAN CATCH ACT WKST: UR 10/21/11 #1 Procedure Result Verified Site > URINE CULTURE SENSITIVI Final -1211 ML SCANT NORMAL URETHRAL OR PERINEAL ANASTACIA - [facility] Permit #[id number] [address] [place] [address] DEPARTMENT OF PATHOLOGY, [address] [place] [address] [facility] Permit #[id number] Marquis Lackey M.D. Medical Record Librarian 78 CHOLESTEROL INTERPRETATION: Desirable: Less than 200 MG/DL Borderline-High Risk: 200-239 MG/DL High-Risk: 240 MG/DL and over 79 HDL INTERPRETATION: Undesirable: High Risk: Less than 40 MG/DL Desirable: Low Risk: Greater than 60 MG/DL 80 LDL INTERPRETATION: Low Risk Optimal Level: LDL Less than 100 MG/DL Near or Above Optimal: LDL 100-129 MG/DL Borderline High Risk: LDL 130-159 MG/DL High Risk: LDL 160-189 MG/DL Very High Risk: LDL Greater than 189 MG/DL 81 Anion gap measurement may be of limited value in the presence of any alkalosis, especially in a combined acid base disorder. . 82 A metabolite of Naproxen, O-desmethylnaproxen, has been shown to interfere with the Jendrassik-Jose Daniel method for measuring total bilirubin. Samples from patients who have taken Naproxen have shown spurious elevation in total bilirubin levels. 83 Because ethnic data is not always readily [...] 15-29 5 Kidney failure <15 (or dialysis) 84 MICROALBUMINURIA IN A RANDOM SAMPLE IS DEFINED : MICROALBUMIN/CREATININE RATIO OF 30-299 ug/mg. . 85 THERAPEUTIC TARGET FOR THE TREATMENT OF DIABETES MELLITUS PATIENTS IS <7% HBA1C, AND IN SELECTIVE PATIENTS <6.0%. PLEASE REFER TO [place] [employer] DIABETIC CARE GUIDELINES FOR FURTHER INFORMATION. 86 RUN DATE: 08/23/11 [facility] NMI LIVE PAGE 1 RUN TIME: 1037 Specimen Inquiry RUN USER: INTERFACE Name: MARCOS JOHNSTON Accjerrod#: [id number] Status: REG REF Re08/21/11 Age/Sex: 71/F Unit#: [id number] Location: [facility] : 38 SPEC #: [id number] JASEN: 08/21/11 STATUS: COMP REQ #: [id number] RECD: 08/21/11-[address] [facility] [address]: Trent WOMACK,Paty Ervin SOURCE: URINE ENTR: 08/21/11-1132 [facility] DR: NISSA: ORDERED: URINE C S QUERIES: MEDENT REQUISITION # [id number] SPECIMEN DESCRIPTION: URINE, RANDOM Procedure Result Verified [...] *These antibiotics are not available in the [facility] Formulary. Contact the Microbiology Department for any additional antibiotic reporting. - [facility] Permit #[id number] [address] [place] [address] DEPARTMENT OF PATHOLOGY, [address] [place] [address] [facility] Permit #[id number] Kojo Holley M.D. Director Charles Alvarez M.D. Medical Record Librarian 87 RUN DATE: 06/21/11 [facility] NMI LIVE PAGE 1 RUN TIME: 1051 Specimen Inquiry RUN USER: INTERFACE Name: MARCOS JOHNSTON Accjerrod#: [id number] Status: REG REF Re06/19/11 Age/Sex: 71/F Unit#: [id number] Location: [facility] : 38 SPEC #: [id number] JASEN: 06/19/11 STATUS: BARRY REQ #: [id number] RECD: 06/19/11-[address]: Yulissa Sellers SOURCE: WOUND ENTR: 06/19/[address]: SPDESC: MISC ORDERED: CULT SENS/GS COMMENTS: NO SOURCE SPECIFIED ON REQUISITION QUERIES: MEDENT REQUISITION # [id number] ACT WKST: B 06/21/11 #1 Procedure Result Verified Site > CULTURE SENSITIVITY Final -1050 ML FINAL: NO GROWTH DAY 2 > GRAM STAIN SMEAR Final -09 ML POLYS NONE SMEAR: NO ORGANISMS SEEN - [facility] Permit #[id number] [address] [place] [address] DEPARTMENT OF PATHOLOGY, [address] [place] [address] [facility] Permit #[id number] Kojo Holley M.D. Director Charles Alvarez M.D. Medical Record Librarian 88 THERAPEUTIC TARGET FOR THE TREATMENT OF DIABETES MELLITUS PATIENTS IS <7% HBA1C, AND IN SELECTIVE PATIENTS <6.0%. PLEASE REFER TO [place] DIABETIC CARE GUIDELINES FOR FURTHER INFORMATION. 89 CHOLESTEROL INTERPRETATION: Desirable: Less than 200 MG/DL Borderline-High Risk: 200-239 MG/DL High-Risk: 240 MG/DL and over 90 HDL INTERPRETATION: Undesirable: High Risk: Less than 40 MG/DL Desirable: Low Risk: Greater than 60 MG/DL 91 LDL INTERPRETATION: Low Risk Optimal Level: LDL Less than 100 MG/DL Near or Above Optimal: LDL 100-129 MG/DL Borderline High Risk: LDL 130-159 MG/DL High Risk: LDL 160-189 MG/DL Very High Risk: LDL Greater than 189 MG/DL 92 Anion gap measurement may be of limited value in the presence of any alkalosis, especially in a combined acid base disorder. . 93 A metabolite of Naproxen, O-desmethylnaproxen, has been shown to interfere with the Pretty- method for measuring total bilirubin. Samples from patients who have taken Naproxen have shown spurious elevation in total bilirubin levels. 94 Because ethnic data is not always readily [...] 15-29 5 Kidney failure <15 (or dialysis) 95 THERAPEUTIC TARGET FOR THE TREATMENT OF DIABETES MELLITUS PATIENTS IS <7% HBA1C, AND IN SELECTIVE PATIENTS <6.0%. PLEASE REFER TO [employer] DIABETIC CARE GUIDELINES FOR FURTHER INFORMATION. 96 ---- RUN DATE: 11/20/10 [facility] NMI LIVE PAGE 1 RUN TIME: 1410 Specimen Inquiry RUN USER: INTERFACE -- Name: MARCOS JOHNSTON Manuel Status: REG REF Re11/16/10 Age/Sex: 70/F Unit#: [id number] Location: [facility] : 38 -- Specimen: [id number] Spec Date: 11/16/[address]: Bharat cortés MD Spec Type: SURGICAL P Received: 11/17/10 Copies to: Paty mclaughlin MD SPECIMEN BIOPSY [...] 11/20/10 1407 -- -- DEPARTMENT OF PATHOLOGY, [address] [place] [address] [facility] Permit #[id number] Kojo Holley M.D. Director Charles Alvarez M.D. Claims Supervisor Dir coreen -- 97 Lymphopenia % 98 Anion gap measurement may be of limited value in the presence of any alkalosis, especially in a combined acid base disorder. . 99 A metabolite of Naproxen, O-desmethylnaproxen, has been shown to interfere with the Jendrassik-Kimbolton method for measuring total bilirubin. Samples from patients who have taken Naproxen have shown spurious elevation in total bilirubin levels. 100 Because ethnic data is not always readily [...] 15-29 5 Kidney failure <15 (or dialysis) 101 Anion gap measurement may be of limited value in the presence of any alkalosis, especially in a combined acid base disorder. . 102 A metabolite of Naproxen, O-desmethylnaproxen, has been shown to interfere with the Jendrassik-Jose Daniel method for measuring total bilirubin. Samples from patients who have taken Naproxen have shown spurious elevation in total bilirubin levels. 103 Because ethnic data is not always readily [...] 15-29 5 Kidney failure <15 (or dialysis) 104 MICROALBUMINURIA IN A RANDOM SAMPLE IS DEFINED : MICROALBUMIN/CREATININE RATIO OF 30-299 ug/mg. . 105 THERAPEUTIC TARGET FOR THE TREATMENT OF DIABETES MELLITUS PATIENTS IS <7% HBA1C, AND IN SELECTIVE PATIENTS <6.0%. PLEASE REFER TO [employer] DIABETIC CARE GUIDELINES FOR FURTHER INFORMATION. 106 ----- RUN DATE: 08/14/10 [facility] NMI LIVE PAGE 1 RUN TIME: 1338 Specimen Inquiry RUN USER: INTERFACE -- Name: MARCOS JOHNSTON Manuel Status: REG REF Re08/10/10 Age/Sex: 70/F Unit#: [id number] Location: [facility] : 38 -- Specimen: [id number] Spec Date: 08/10/[address]: Bharat cortés [...] 08/14/10 1338 -- -- DEPARTMENT OF PATHOLOGY, [address] [place] [address] [facility] Permit #[id number] Kojo Holley M.D. Director Charles Alvarez M.D. Claims Supervisor Dir coreen -- 107 Anion gap measurement may be of limited value in the presence of any alkalosis, especially in a combined acid base disorder. . 108 A metabolite of Naproxen, O-desmethylnaproxen, has been shown to interfere with the Jendrassik-Jose Daniel method for measuring total bilirubin. Samples from patients who have taken Naproxen have shown spurious elevation in total bilirubin levels. 109 Because ethnic data is not always readily [...] 15-29 5 Kidney failure <15 (or dialysis) 110 THERAPEUTIC TARGET FOR THE TREATMENT OF DIABETES MELLITUS PATIENTS IS <7% HBA1C, AND IN SELECTIVE PATIENTS <6.0%. PLEASE REFER TO [employer] DIABETIC CARE GUIDELINES FOR FURTHER INFORMATION. 111 Anion gap measurement may be of limited value in the presence of any alkalosis, especially in a combined acid base disorder. . 112 A metabolite of Naproxen, O-desmethylnaproxen, has been shown to interfere with the Jendrassik-Kimbolton method for measuring total bilirubin. Samples from patients who have taken Naproxen have shown spurious elevation in total bilirubin levels. 113 Because ethnic data is not always readily [...] 15-29 5 Kidney failure <15 (or dialysis) 114 INTERPRETATION %CK-MB < 5% NOT SUPPORTIVE OF DIAGNOSIS OF NV 5 - <10% INDETERMINATE; SUGGEST SERIAL STUDIES IF CLINICALLY INDICATED 10% OR > CONSISTENT WITH DIAGNOSIS OF NV . 115 New Reference Range and Interpretation effective 12/05/2001 TnI (ng/ml) INTERPRETATION Less Than 0.06 ng/mL NOT SUPPORTIVE OF DIAGNOSIS OF NV 0.06 - 0.50 ng/ml INDETERMINATE: SUGGEST SERIAL STUDIES IF CLINICALLY INDICATED. Greater than 0.5 ng/mL CONSISTENT WITH DIAGNOSIS OF NV . 116 Recommended INR for Patients on Oral Anticoagulants Prophylaxis 2.0 - 3.0 Treatment of thrombosis 2.0 - 3.0 Prevention of embolism 2.0 - 3.0 Prevention of embolism from prosthetic heart valves 2.5 - 3.5 117 DIAGNOSIS,TREATMENT,AND THERAPY MUST BE BASED ON THE INR VALUE ALONE. 118 THERAPEUTIC TARGET FOR THE TREATMENT OF DIABETES MELLITUS PATIENTS IS <7% HBA1C, AND IN SELECTIVE PATIENTS <6.0%. PLEASE REFER TO [employer] DIABETIC CARE GUIDELINES FOR FURTHER INFORMATION. 119 THERAPEUTIC TARGET FOR THE TREATMENT OF DIABETES MELLITUS PATIENTS IS <7% HBA1C, AND IN SELECTIVE PATIENTS <6.0%. PLEASE REFER TO [employer] DIABETIC CARE GUIDELINES FOR FURTHER INFORMATION. 120 CHOLESTEROL INTERPRETATION: Desirable: Less than 200 MG/DL Borderline-High Risk: 200-239 MG/DL High-Risk: 240 MG/DL and over 121 HDL INTERPRETATION: Undesirable: High Risk: Less than 40 MG/DL Desirable: Low Risk: Greater than 60 MG/DL 122 LDL INTERPRETATION: Low Risk Optimal Level: LDL Less than 100 MG/DL Near or Above Optimal: LDL 100-129 MG/DL Borderline High Risk: LDL 130-159 MG/DL High Risk: LDL 160-189 MG/DL Very High Risk: LDL Greater than 189 MG/DL 123 Anion gap measurement may be of limited value in the presence of any alkalosis, especially in a combined acid base disorder. . 124 Note change in reference range as of 10/23/07. The change was based on recommendations from the [employer]. 125 A metabolite of Naproxen, O-desmethylnaproxen, has been shown to interfere with the Jendrassik-Jose Daniel method for measuring total bilirubin. Samples from patients who have taken Naproxen have shown spurious elevation in total bilirubin levels. 126 Because ethnic data is not always readily [...] 15-29 5 Kidney failure <15 (or dialysis) 127 Anion gap measurement may be of limited value in the presence of any alkalosis, especially in a combined acid base disorder. . 128 Note change in reference range as of 10/23/07. The change was based on recommendations from the [employer]. 129 Please note change in reference range effective 07 . 130 A metabolite of Naproxen, O-desmethylnaproxen, has been shown to interfere with the Jendrassik-Kimbolton method for measuring total bilirubin. Samples from patients who have taken Naproxen have shown spurious elevation in total bilirubin levels. 131 Because ethnic data is not always readily [...] 15-29 5 Kidney failure <15 (or dialysis) 132 MICROALBUMINURIA IN A RANDOM SAMPLE IS DEFINED : MICROALBUMIN/CREATININE RATIO OF 30-299 ug/mg. . 133 THERAPEUTIC TARGET FOR THE TREATMENT OF DIABETES MELLITUS PATIENTS IS <7% HBA1C, AND IN SELECTIVE PATIENTS <6.0%. PLEASE REFER TO [employer] DIABETIC CARE GUIDELINES FOR FURTHER INFORMATION. Procedures Date CPT Code Description Status Comment 01/17/2017 Inject/Drain Joint/Bursa Major Completed 11/12/2016 Diabetic Foot Exam Completed 11/06/2016 Inject/Drain Joint/Bursa Major Completed 03/13/2016 Bone Mineral Density Test Completed 03/08/2016 Inject/Drain Joint/Bursa Small Completed 02/14/2016 Mammogram Completed 11/21/2015 Diabetic Retinal Eye Exam Completed Document: 02/15/16 - Rec.Release-DR Mart Perez 10/13/2015 Inject/Drain Joint/Bursa Small Completed 08/19/2015 Colonoscopy Completed 08/11/2015 10757 EKG Tracing & Completed Interpretation 04/21/201544626 Inject/Drain Joint/Bursa Small Completed 02/09/2015 Mammogram Completed 10/25/2014 50683 Inject/Drain Joint/Bursa Small Completed 02/04/2014 Mammogram Completed 07/08/2013 63577 EKG Tracing & Completed Interpretation 05/29/2013 Diabetic Retinal Eye Exam Completed 05/06/2013 Diabetic Retinal Eye Exam Completed 01/21/2013 Mammogram Completed 01/17/2012 Mammogram Completed 12/14/2011 Diabetic Retinal Eye Exam Completed 10/30/2011 [id number] EKG Tracing & Completed Interpretation 07/23/2011 Diabetic Foot Exam Completed 07/05/2011 22742 EKG Tracing & Completed Interpretation 05/09/2011 Diabetic Foot Exam Completed 01/15/2011 Mammogram Completed 08/10/2010 Colonoscopy Completed 04/11/2010 Bone Mineral Density Test Completed 02/06/2010 92352 EKG Tracing & Completed Interpretation 01/13/2010 Mammogram Completed 10/11/2008 97471 EKG Tracing & Completed Interpretation 01/08/2008 Mammogram Completed 07/09/2007 Mammogram Completed 03/31/2007 23275 EKG Tracing & Completed Interpretation 03/31/2007 19124 EKG Tracing & Completed Interpretation Encounters Type Date Location Provider CPT E/M Dx Office Visit 01/29/2017 [facility] Services Heron Barth M.D. 73816 M35.3 10:20a Of [place] M54.9 Z79.1 R74.8 Office Visit 12/13/2016 1:45p [facility] [place] [address] M75.41 C.M.A. M75.42 Office Visit 12/12/2016 9:00a [facility] Of Heron Barth 75490 M35.3 Nely Cho M54.2 M25.512 Office Visit 11/06/2016 1:00p [facility] [place] [address] M25.511 C.M.A. M75.41 Office Visit 10/19/2016 8:40a Nely Newman 80816 M25.511 Angie Williamson M.D. F43.20 Office Visit 10/09/2016 11:40a Nely Newman 94125 M79.669 [facility] - [place] M.D. Office Visit 08/28/2016 8:40a [facility] Paty Newman 18902 M54.9 Medicine - [place] M.DMaria C I10 Office Visit 08/13/2016 8:40a [facility] Medicine Paty Newman 66875 M54.5 - [place] M.DMaria C M25.551 Office Visit 08/06/2016 2:00p Neurosurgery Services Chrystal Marques PA-C 26416 M54.5 Of [facility] Office Visit 08/03/2016 11:40a [facility] Medicine Yulissa Birmingham, N.P. 14282 M54.5 - [place] Office Visit 07/16/2016 3:45p [facility]surgery Services Chrystal Marques PA-C 87336 M54.16 Of [facility] Office Visit 07/04/2016 10:20a [facility] Medicine Yulissa Birmingham, N.P. 34552 M54.5 - [place] Office Visit 02/13/2016 10:40a [facility] Medicine Paty Newman 81116 Z00.00 - [place] Marquis K21.9 I10 M15.2 H91.93 F41.9 N95.1 Office Visit 08/11/2015 10:20a [facility] Medicine Paty Newman M.D. 00586 I10 - [place] K22.4 Office Visit 02/10/2015 1:40p [facility] Paty Newman 86690 Z00.00 - [place] Marquis E11.9 I10 K21.9 N77.1 Office Visit 01/06/2015 1:00p [facility] Medicine Paty Newman 85112 N39.0 - [place] M.D. N77.1 Office Visit 12/20/2014 10:20a [facility] Medicine Yulissa Birmingham, N.P. 31885 N77.1 - [place] N39.0 Office Visit 12/15/2014 1:20p [facility] Medicine Yulissa Birmingham, N.P. 11378 N39.0 - [place] N77.1 Office Visit 10/25/2014 11:30a Orthopedic Services Meg Rice 49238 715.14 Of Kelli Cho Office Visit 10/04/2014 1:20p [facility] Medicine Paty Cotton, 40469 401.1 - [place] M.D. 530.89 716.84 716.94 Office Visit 05/11/2014 11:00a [facility] Medicine Patydarryl Newman 46880 401.1 - [place] M.D. 388.70 Office Visit 02/08/2014 9:00a [facility] Medicine Patyroberto Newman 23914 V70.0 - [place] M.D. 401.1 530.81 244.9 787.91 250.00 V03.82 Office Visit 01/14/2014 10:00a [facility] [place] [address] 720.2 - [place] Office Visit 11/18/2013 10:30a [facility] [place] [address] 788.1 - [place] Office Visit 10/23/2013 1:00p [facility] Medicine Patyroberto Newman 43006 V72.84 - [place] M.D. 371.70 250.00 401.1 Office Visit 07/08/2013 11:20a [facility] Medicine Patyroberto Newman 38609 V72.84 - [place] M.D. 371.70 401.1 250.00 Office Visit 06/04/2013 10:40a [facility] Medicine Patyroberto Newman 70987 401.1 - [place] M.D. 272.4 Office Visit 03/24/2013 10:40a [facility] Medicine Paty Newman 98416 455.6 - [place] M.D. Office Visit 02/03/2013 11:00a [facility] Paty Newman 42839 V70.0 - [place] M.D. 401.1 244.9 787.91 Office Visit 10/29/2012 2:20p [facility] Medicine Yulissa Birmingham, N.P. 52874 112.3 - [place] Office Visit 09/29/2012 9:00a [facility] Paty Newman 53793 250.00 - [place] M.D. 787.91 Office Visit 08/14/2012 11:40a [facility] Paty Newman 03032 250.00 - [place] M.D. 599.0 Office Visit 07/17/2012 4:00p [facility] Kaylie Ornelas M.D., 50013 788.1 - [place] FACP Office Visit 04/28/2012 2:00p [facility] Paty Trent 93738 250.00 - [place] M.D. Office Visit 03/20/2012 9:40a [facility] Paty Trent 50379 250.00 - [place] M.D. 530.81 Office Visit 03/07/2012 2:00p [facility] Medicine Yulissa Birmingham, N.P. 60527 627.3 - [place] Office Visit 02/15/2012 10:40a [facility] Paty Trent 19279 250.00 - [place] M.D. 530.81 Office Visit 01/14/2012 9:40a [facility] Patydarryl Newman 66054 250.00 - [place] M.D. 401.1 272.4 786.50 Office Visit 10/30/2011 2:20p [facility] Medicine Paty Trent 85329 786.50 - [place] M.D. V04.81 Office Visit 10/11/2011 11:20a [facility] Paty Trent 14000 250.00 - [place] M.D. 401.1 272.4 Office Visit 09/19/2011 10:20a [facility] Medicine Yulissa Birmingham, N.P. 49295 112.1 - [place] Office Visit 08/21/2011 8:40a [facility] Medicine Paty Trent 78641 599.0 - [place] M.D. Office Visit 07/05/2011 1:40p [facility] Paty Trent 77512 V70.0 - [place] M.D. 250.00 401.1 244.9 V76.10 V72.31 Office Visit 06/19/2011 9:20a [facility] Medicine Yulissa Birmingham, N.P. 30101 680.8 - [place] Office Visit 04/17/2011 3:20p [facility] Patydarryl Newman 15477 250.00 - [place] M.D. 401.1 272.4 780.52 Office Visit 01/18/2011 10:40a DO Not Use Paty Cotton, 18868 250.00 [employer] M.D. 401.1 272.4 Office Visit 10/26/2010 8:20a DO Not Use Paty Cotton, 28411 789.01 [employer] M.D. 250.00 276.8 Office Visit 10/16/2010 10:20a DO Not Use Paty Cotton, 17804 789.00 [employer] M.D. Office Visit 09/25/2010 10:20a DO Not Use Yulissa Varn, 67054 530.81 [employer] N.P. Office Visit 08/04/2010 11:20a DO Not Use Paty Cotton, 41114 250.00 [employer] M.D. 401.1 Office Visit 06/29/2010 1:30p DO Not Use Paty Cotton, 65156 250.00 [employer] M.D. 401.1 272.4 Office Visit 04/18/2010 2:15p DO Not Use Paty Cotton, 82205 786.50 [employer] M.D. 250.00 401.1 Office Visit 02/06/2010 3:45p DO Not Use Kaylie Ornelas M.D., 91937 786.50 [employer] FACP Office Visit 12/20/2009 2:00p DO Not Use Paty Cotton, 28827 250.02 [employer] M.D. 401.1 272.0 Office Visit 09/16/2009 1:30p DO Not Use Paty Cotton, 73035 250.00 [employer] M.D. Office Visit 07/05/2009 11:30a DO Not Use Paty Cotton, 59477 250.02 [employer] M.D. 401.1 Office Visit 05/13/2009 11:00a DO Not Use Alyce Shea, 50953 250.02 [employer] M.D. 401.1 Office Visit 04/05/2009 9:45a DO Not Use Yulissa Varn, 52675 786.52 [employer] N.P. Office Visit 01/11/2009 11:00a DO Not Use Alyce Shea, 56255 729.5 [employer] M.D. 250.00 401.1 272.0 Office Visit 12/17/2008 11:45a DO Not Use [employer] Kaylie Ornelas M.D., 03301 477.9 FACP Office Visit 11/22/2008 2:30p DO Not Use [employer] Yulissa [place], 54595 724.1 N.P. 845.00 Office Visit 10/11/2008 3:15p DO Not Use RadAlyce ruvalcaba, 29418 V70.0 [employer] M.D. 250.00 272.0 585.9 401.1 Office Visit 07/12/2008 9:15a DO Not Use Alyce Shea, 01649 250.00 [employer] M.D. 401.1 Office Visit 05/26/2008 10:15a DO Not Use Alyce Shea, 94075 250.02 [employer] M.D. Office Visit 04/14/2008 9:00a DO Not Use Alyce Shea, 86397 250.02 [employer] M.D. 272.0 401.1 Office Visit 01/23/2008 1:00p DO Not Use [employer] Kaylie Ornelas, 48196 784.2 M.D., FACP Office Visit 01/14/2008 9:00a DO Not Use [employer] Alyce Shea, 81853 250.02 M.D. 272.0 401.1 Office Visit 01/02/2008 1:15p DO Not Use Yulissa Birmingham, 66475 564.00 [employer] N.P. Office Visit 09/30/2007 10:45a DO Not Use Yulissa Birmingham, 30329 752.41 [employer] N.P. Office Visit 09/02/2007 9:15a DO Not Use Alyce Shea, 69123 V72.31 [employer] M.D. 250.00 272.0 401.1 Office Visit 06/11/2007 1:30p DO Not Use Radomski, Alyce, 73158 530.5 [employer] M.D. 250.00 401.1 Office Visit 04/23/2007 4:15p DO Not Use Radomski, Alyce, 22687 250.00 [employer] M.D. 530.5 Office Visit 03/31/2007 11:45a DO Not Use Radomski, Alyce, 69111 786.50 [employer] M.D. Office Visit 03/06/2007 3:00p DO Not Use Radomski, Alyce, 87950 250.00 [employer] M.D. 401.1 Office Visit 02/04/2007 3:30p DO Not Use Radomski, Alyce, 12691 244.9 [employer] M.D. 266.2 250.00 401.1 Plan of Care Future Appointment(s):08/16/2017 2:20 pm - Paty Newman M.D. at [facility] - Fsuodrybj41/28/2018 10:20 am - Heron Barth M.D. at [facility]02/15/2017 - Paty Newman M.D.Z00.00 Encntr for general adult medical exam w/o abnormal findingsComments:VACCINES:Flu shot every year in the fall. Done in : last one done in 2005. You are due for a booster if you get hurtPneumonia vaccines: you have had both pneumonia vaccines - you had the Pneumovax in 2006 and the Prevnar in 2013Shingles vaccine: Zostavax done in 2005. There is a new shingles vaccine - Shingrix. Final recommendations and insurance details pendingSCREENING:Mammogram : done 02/14/16Pap smear: no longer neededColonoscopy: last one done in 2015, no further screening neededBone density (DEXA): last done in March, bone density was in the normal range and way above average.Screening for diabetic eye disease and glaucoma: every year unless otherwise instructed by your eye doctor ADVANCE DIRECTIVES:It would be good for us to have a copy of your health care proxy and advanced directive on file here.G50.1 Atypical facial painComments:You have an appointment with Dr. Barth today at 1:40I10 Essential (primary) hypertensionComments:Your blood pressure is fine. Continue the same medicationFollow up:6 months, REGGIE for Dr. Perez
--- NOTE | 2017-03-01 02:38 | ED ---
Rashawn Puente Tecjoon scriblakeisha for Elena Kong MD on 02/28/17 at 2329 . Substance Abuse/Use - HPI Summary HPI Summary: This patient is a 77 year old female BIBA to [facility] accompanied by family with a concerns of insulin overdoes since 2214 today. Patient states that she accidentally injected 30 units of her short-acting insulin Novalog, instead of her night-time long-acting insulin. Patient states she ate dinner at 1830, at which her blood sugar was 224. She took 9 units of her short-acting insulin at this time. In the ambulance, after her 30 unit dosage, the patients blood sugar was 212. At the time of exam, patient is asymptomatic, but anxious and nervous. - History Of Current Complaint Chief Complaint: EDOverdose Stated Complaint: DIABETIC PROBLEMS Time Seen by Provider: 02/28/17 23:08 Hx Obtained From: Patient Onset/Duration of Drug/ETOH Abuse: Hours - at 2214 Ingestion History: Type/Name Of Drug - Novolog, Amount Ingested - 30 units, Approximate Time Of Ingestion - 2214 Timing Of Abuse: Daily - Insulin, for diabetes Severity Currently: None Aggravating Factor(s): Nothing Alleviating Factor(s): Nothing - Allergies/Home Medications Allergies/Adverse Reactions: Allergies Allergy/AdvReac Type Severity Reaction Status Date / Time Glipizide Allergy Unknown Verified 08/29/16 18:02 Reaction Details Iodinated Diagnostic Agents Allergy Swelling Verified 08/29/16 18:02 Of Face,Lips,& Throat Pantoprazole [From Protonix] Allergy Unknown Verified 08/29/16 18:02 Reaction Details Sulfa Antibiotics Allergy See Comment Verified 08/29/16 18:02 Terconazole Allergy Rash Verified 08/29/16 18:02 Metformin AdvReac Diarrhea Verified 08/29/16 18:02 PMH/Surg Hx/FS Hx/Imm Hx Previously Healthy: No Endocrine/Hematology History: Reports: Hx Diabetes, Hx Thyroid Disease Cardiovascular History: Reports: Hx Hypertension Denies: Hx Pacemaker/ICD Respiratory History: Denies: Hx Asthma History: Denies: Hx Renal Disease Musculoskeletal History: Denies: Hx Rheumatoid Arthritis, Hx Osteoporosis Sensory History: Denies: Hx Hearing Aid Psychiatric History: Denies: Hx Panic Disorder - Cancer History Hx Chemotherapy: No Hx Radiation Therapy: No - Surgical History Surgery Procedure, Year, and Place: HYSTERECTOMY 1988 ;. cholecystectomy ;. OVARIAN CYSY 1968 ;. BILATERAL CATARACTS PRIOR TO TRANSPLANTS ;. 2 CORNEAL TRANSPLANTS 2013-[place] PER DR DESHPANDE ; Infectious Disease History: No Infectious Disease History: Denies: History Other Infectious Disease, Traveled Outside the [place] in Last 30 Days - Family History Known Family History: Negative: Blood Disorder - NO FAM H/O DVT - Social History Lives: With Family Alcohol Use: None Hx Substance Use: No Substance Use Type: Reports: None Hx Tobacco Use: No Smoking Status (MU): Never Smoked Tobacco Review of Systems Negative: Fever Positive: Anxious All Other Systems Reviewed And Are Negative: Yes Physical Exam - Summary Physical Exam Summary: VITAL SIGNS: Reviewed. GENERAL: Patient is a well-developed and nourished female who is lying comfortable in the stretcher. Patient is not in any acute respiratory distress. HEAD AND FACE: No signs of trauma. No ecchymosis, hematomas or skull depressions. No sinus tenderness. EYES: PERRLA, EOMI x 2, No injected conjunctiva, no nystagmus. EARS: Hearing grossly intact. Ear canals and tympanic membranes are within normal limits. MOUTH: Oropharynx within normal limits. NECK: Supple, trachea is midline, no adenopathy, no JVD, no carotid bruit, no c- spine tenderness, neck with full ROM. CHEST: Symmetric, no tenderness at palpation LUNGS: Clear to auscultation bilaterally. No wheezing or crackles. CVS: Regular rate and rhythm, S1 and S2 present, no murmurs or gallops appreciated. ABDOMEN: Soft, non-tender. No signs of distention. No rebound no guarding, and no masses palpated. Bowel sounds are normal. EXTREMITIES: FROM in all major joints, no edema, no cyanosis or clubbing. NEURO: Alert and oriented x 3. No acute neurological deficits. Speech is normal and follows commands. SKIN: Dry and warm Triage Information Reviewed: Yes Vital Signs On Initial Exam: Initial Vitals Temp Pulse Resp BP Pulse Ox 98.3 F 97 18 171/86 97 02/28/17 23:16 02/28/17 23:16 02/28/17 23:16 02/28/17 23:16 02/28/17 23:16 Vital Signs Reviewed: Yes - Agnes Coma Scale Coma Scale Total: 15 Diagnostics - Vital Signs Vital Signs Temp Pulse Resp BP Pulse Ox 02/28/17 23:16 98.3 F 97 18 171/86 97 - Laboratory Lab Statement: Any lab studies that have been ordered have been reviewed, and results considered in the medical decision making process. Course/Dx - Course Course Of Treatment: This patient is a 77 year old female BIBA to [facility] accompanied by family with a concerns of insulin overdoes since 2214 today. Patient states that she accidentally injected 30 units of her short-acting insulin Novolog, instead of her night-time long-acting insulin. Blood glucose levels monitored. We discussed patients blood glucose levels with patient and her family. Patients blood sugar levels have been stable within the past 1-2 hours, so we will discharge the patient with a dx of accidental drug ingestion. Patient will be given instruction on hypoglycemia. The patient is agreeable with this plan. - Diagnoses Provider Diagnoses: Accidental drug ingestion Discharge - Discharge Plan Condition: Fair Disposition: HOME Patient Education Materials: Hypoglycemia in a Person with Diabetes (ED) Referrals: Paty Newman MD [Primary Care Provider] - Additional Instructions: Patient's blood sugar levels have been stable within the past 1-2 hours, so we will discharge the patient with a dx of accidental drug ingestion. Patient will be given instruction on hypoglycemia. Patient is agreeable to this plan. RETURN TO EMERGENCY DEPARTMENT FOR ANY NEW OR WORSENING SYMPTOMS The documentation as recorded by the Rashawn morataya Tecjoon accurately reflects the service I personally performed and the decisions made by Luann gregg Abdul, MD.
[2017-03-01 02:48] VITALS: BP 136/74
== END 2017-03-01 02:47 | disposition home or self-care (01) ==
LOC: ED 23:03
DX: T38.3X5A Adverse effect of insulin and oral hypoglycemic [antidiabetic] drugs, initial encounter (principal); Y92.9 Unspecified place or not applicable; E11.8 Type 2 diabetes mellitus with unspecified complications; Z79.4 Long term (current) use of insulin
CPT/HCPCS: 99282

== ENCOUNTER 2017-07-30 10:19 | Emergency (ER) | payer MEDICARE ==
--- OUTSIDE RECORDS SUMMARY | 2017-07-30 10:27 | XMS REPORT ---
:1940 External Reference #:[id number] Author Organization [facility] Address [address] [address] Phone [phone] Care Team Providers Name Role Phone Paty Newman MD Primary Care Physician Unavailable Payers Type Date Identification Numbers Payment Provider Subscriber Medicare Primary Expires: Policy Number: Medicare Marcos Johnston 2016 [id number] PayID: [id number] [address] [place] [address] Medigap Part B Policy Number: [id number] [employer] Medicare Marcos Johnston Group Number: [id number] [address] PayID: [id number] [place] [address] Medigap Part B Expires: 2016 Policy Number: [employer] Insurance Saad Johnston [id number] Group Number: [id number] [address] PayID: [id number] [place] [address] Advance Directives Type Date Description Status Comment Other Directive 08/24/2008 Health Care Proxy Current and Verified Problems Date Description Provider Status Onset: 05/24/2009 [...] Marital Status Lives With Occupation Retired Occupation [employer] Advance Directive Health Care Proxy Saad Johnston [...] Strength Qnty SIG Indications Ordering Provider Prednisone 05/01 Active Tablets 5mg 90tab take 1 tab s by mouth Tab, every other M.D. day alternating with two every other day Nystatin 04/11 Active Cream 138125Bhb 60uni Apply Three B37.2 t/GM ts Times A Day Cotton, Until Rash M.D. Clears Etodolac 01/10 Active Capsules 200mg 60cap Take One s Capsule By Tab, Mouth Twice M.D. A Day Synthroid 11/02 Active Tablets 75mcg 90tab Take One s Tablet By Cotton, Mouth Every M.D. Day Lisinopril 08/03 Active Tablets 10mg 90tab Take One E11.9 Paty /2014 s Tablet By Cotton, Mouth Every M.D. Day Potassium 07/09 Active Capsules 10Meq 90cap Take One Paty Chloride ER /2013 ER s Capsule By Cotton, Mouth Every M.D. Day Accu-Chek 03/20 Active Strips 204un use to test 250.02 Paty Compact Test /2012 its twice daily Jayme Newman M.DMaria C Pantoprazole 02/14 Active Tablets 40mg 90tab Take One K21.[address] s Tablet By Cotton, Mouth Every M.D. Day Glucometer 01/18 Active Liquid For use once E11.9 Paty /2011 daily Marquis Newman Amlodipine 06/29 Active Tablets 2.5mg 90tab Take One Paty Besylate s Tablet By Cotton, Mouth Every M.D. Day Test Strips Active 100un for use once Paty /0000 its daily CottonAzizaDMaria C Vit B12 Active 500mg qod Unknown Probiotic Active Capsules 1 by mouth Unknown every day Tresiba Active Solution 100Unit/M ( Sliding Jass Rodriguez, Flextouch / Pen-Injec L Scale) 28-32 MD t units at bedtime Novolog Active Solution 100Unit/M ( Sliding Jass Rodriguez, /0000 L Scale) MD inject 5 units tid Crestor Active Tablets 5mg 45tab Take One Paty /0000 s Tablet By Cotton, Mouth Every M.D. Other Day Cephalexin 07/01 Hx Capsules 500mg 21cap 1 by mouth L03.031 s three times Varn, N.P. - a day for 7 Cephalexin 06/24 Hx Capsules 500mg 21cap 1 by mouth L03.031 s three times Varn, N.P. - a day for 7 Fluconazole 06/24 Hx Tablets 150mg 2tabs one by mouth L03.031 July repeat Varn, N.P. - in 3 days as 06/30 Tamiflu 06/10 Hx Capsules 75mg 10cap 1 tab by J06.9 s mouth twice Cotton, - daily for 5 M.D. Prednisone 05/01 Hx Tablets 1mg 360ta take four M35.3 bs tablets by Tab, - mouth once M.D. 05/31 daily , taper by 1 mg every month Caltrate 600+D 03/21 Hx Tablets 600-800mg 180ta take one -Unit bs capsule/tabl Tab, - et by mouth M.D. 06/24 twice daily Prednisone 03/18 Hx Tablets 10mg 30tab Take one s capsule/tabl Tab, - et daily by M.DMaria C 05/01 Prednisone 02/15 Hx Tablets 10mg 30tab take 4 tabs s by mouth Tab, - daily for 2 M.D. 02/15 days then tabs daily for 2 days then 2 tabs for 2 days then 1 tab for 2 days then d/c Prednisone 02/15 Hx Tablets 20mg 30tab Please take M35.3 s 3 tabs daily Tab, - for 2 days M.D. 02/20 then 2 tabs daily for 2 days then 1 tabs daily for 2 days then stop Methotrexate 01/10 Hx Tablets 2.5mg 30tab take 4 M54.5 s capsules/tab Tab, - lets by M.DMaria C 01/10 mouth once weekly on Saturdays Folic Acid 01/10 Hx Tablets 1mg 90tab take one s capsule/tabl Tab, - et daily by M.DMaria C 05/01 Prednisone 12/24 Hx Tablets 5mg 45tab Please take s 4 tabs Tab, - daily, taper M.D. 01/10 by 5 mg /2016 every 4 days until finished Meloxicam 12/12 Hx Tablets 7.5mg 60tab take one tab M35.3 s twice daily Tab, - as needed M.D. 03/06 for pain, avoid other nsaids Hydrocodone-Acet 10/02 Hx Tablets 5-325mg 75tab 1 by mouth aminophen s up to 3 Cotton, - times daily M.D. 05/01 as needed Medrol 08/28 Hx TBPK 4mg 21uni 6 by mouth M54.9 ts day 1, 5 by Cotton, - mouth day 2, M.D. 09/12 4 by mouth day 3, 3 by mouth day 4, [...] Varn, N.P. - hours as 01/10 needed for pain Ativan 07/16 Hx Tablets 2mg 2tabs take one M54.16 tablet by [place], - mouth 30 M.D. before mri, may repeat at the time of mri. Vicodin 07/12 Hx Tablets 5-300mg 60tab take 1 by s mouth every Cotton, - 6 hours as M.D. 10/02 needed Tramadol HCL 07/04 Hx Tablets 50mg 30tab 1 tablet M54.5 s three to Varn, N.P. - four times 05/01 daily as needed Nystatin 02/12 Hx Cream [id number] 60uni aply 3 times 112.3 t/GM ts daily until Cotton, - rash clears M.D. 07/04 Voltaren 02/12 Hx Gel 1% 100gm apply 3 M15.2 times daily Trent, - as needed M.D. 06/24 Estrace 01/06 Hx Cream 0.1mg/GM 42.50 apply [...] 150mg 2tabs 1 tablet one time. july Cotton, - repeat 3 M.D. 12/15 days later if needed Azithromycin 12/15 Hx Tablets 250mg 6tabs two tabs day J20.9 one, one Varn, N.P. - daily till 12/19 Benzonatate 12/08 Hx Capsules 200mg 30cap take 1 s capsule by Cotton, - mouth three M.D. 02/10 times a day if needed Ciprofloxacin 11/18 Hx Tablets 250mg 6tabs take one 788.1 Lucas HCL tablet twice [place], [facility] MAGISTRATE - a day for 3 01/13 more days. Fluconazole 11/18 Hx Tablets 150mg 2tabs one by mouth 788.1 Lucas July repeat [place], [facility] [facility] MAGISTRATE - in 3 days as 02/08 needed ( localzed burning to tercanozole, has never had a problem with fluconazole) Hydrocortisone 03/24 Hx Cream 2.5-1% 28.40 apply once 455.6 Paty Acetate/Pramoxin 0gm daily as Trent, e - needed M.D. 02/08 Nystatin 10/29 Hx Cream [id number] 60uni aply 3 times 112.3 t/GM ts [...] 01/13 Hx Tablets 1mg 45tab 1 and 1/2 250.00 s tablets once Cotton, - daily [...] 2tabs sig 1 po repeat in 3 Cotton, - days if M.D. 09/18 Macrobid 08/26 [...] Test Paty Compact Test s Once Daily Cotton, Jayme - M.D. 07/04 Prandin 10/26 Hx Tablets [...] by Cotton, - mouth twice M.D. 10/26 Metformin HCL 06/29 Hx Tablets 500mg 15tab 1/4 tablet 250.00 Paty /2011 s once daily Cotton, - in evening M.D. 10/16 Lisinopril 06/29 Hx Tablets 5mg 90tab take 1 250.00 Paty s tablet daily Cotton, - M.D. 08/03 Amlodipine 04/18 Hx 5mg. 1 tablet by Unknown mouth daily - 06/29 Omeprazole 02/06 Hx Capsules 20mg 30cap [address] bone once daily Hank Ornelas.Kaitlyn, FAC 03/30 Prandin 12/20 Hx Tablets 1mg 270ta 1tablet bs threee times Cotton, - daily 30 M.D. before meals Levothyroxine 05/24 Hx Tablets 75mcg 90tab take 1 s tablet daily Cotton, - M.D. 11/02 Prandin Hx Tablets 0.5mg 270ta 1 tablet 3 Paty / bs times daily Cotton, - before meals [...] Capsule Cotton, - Daily M.D. 02/14 Glimepiride 00/00 Hx Tablets 2mg 90tab Take 4 250.00 Unknown /0000 s Tablets By - Mouth bid 02/03 Atenolol 00/00 Hx Tablets 25mg 90tab Take 1 Paty /0000 s Tablet Once Cotton, - Daily M.D. 07/08 Lantus Solostar Hx Solution 100Unit/M 15ml inject 28 Unknown /0000 L units - subcutaneous 07/04 ly at bedtime Glimiperide 0000 Hx Tablets 4mg ( Not Taking E11.9 Unknown /0000 )1 PO bid - 04/25 Ibuprofen Hx Tablets 200mg 1-2 tabs bid M35.3 Unknown /0000 as needed - 12/12 Cyclobenzaprine Hx Tablets 5mg take one Unknown HCL /0000 tablet by - mouth bid . 04/25 Medications Administered in Office Medication Date Status [...] CPT Code Status Date Vaccine Lot # [id number] Given 11/29/2016 Fluzone High Dose Q2039 Given 11/22/2015 Flu Vaccine NOS 57729 Given 11/16/2014 Fluzone High Dose 53256 Given 02/08/2014 Pneumococcal Conjugate Vaccine 13 Valent For [id number] Intramuscular Use 52978 Given 11/24/2013 Fluzone High Dose 13994 Given 11/12/2012 Fluzone High Dose Q2038 Given 10/30/2011 Fluzone Vaccine [id number] 87850 Given 12/04/2010 Influenza Virus 3Yrs & Over 65903 Given 02/17/2009 Influenza Virus Vaccine, Pandemic Formulation 32390 Given 12/13/2008 Influenza Virus 3Yrs & Over 16197 Given 12/18/2007 Influenza Virus 3Yrs & Over Vital Signs Date Vital Result Comment 07/16/2017 Height 62.5 inches 5'2.50" Weight 167.00 lb Heart Rate 94 /min BP Systolic Sitting 121 mmHg BP Diastolic Sitting 73 mmHg Body Temperature 97.5 F Pain Level 2 right side of back O2 % BldC Oximetry 95 % BMI (Body Mass Index) 30.1 kg/m2 06/24/2017 Weight 167.75 lb Heart Rate 90 /min BP Systolic 150 mmHg BP Diastolic 80 mmHg Body Temperature 97.9 F O2 % BldC Oximetry 97 % 06/10/2017 Weight 166.00 lb Heart Rate 84 /min BP Systolic Sitting 142 mmHg BP Diastolic Sitting 92 mmHg Body Temperature 98.0 F O2 % BldC Oximetry 96 % 05/01/2017 Height 62.5 inches 5'2.50" Weight 164.50 lb Heart Rate 64 /min BP Systolic Sitting 144 mmHg BP Diastolic Sitting 100 mmHg Respiratory Rate 14 /min Pain Level 0 BMI (Body Mass Index) 29.6 kg/m2 04/25/2017 Weight 165.50 lb Heart Rate 86 /min BP Systolic 126 mmHg BP Diastolic 64 mmHg O2 % BldC Oximetry 96 % 03/21/2017 Height 62.5 inches 5'2.50" Weight 163.00 lb Heart Rate 100 /min BP Systolic Sitting 150 mmHg BP Diastolic Sitting 100 mmHg Respiratory Rate 14 /min Pain Level 4 BMI (Body Mass Index) 29.3 kg/m2 02/19/2017 Heart Rate 90 /min BP Systolic [...] Diastolic Sitting 94 mmHg Pain Level 6 AT Times BMI (Body Mass Index) 28.4 kg/m2 [...] Result H/L Range Note Laboratory test finding 06/26/2017 Erythrocyte Sed Rate 20 mm/Hr 0-40 1 C Reactive Protein 8.61 mg/L High < 5.00 2 Rapid Influenza A & B 06/10/2017 Influenza A Molecular NEGATIVE Negative 3 Molecular Influenza B Molecular NEGATIVE Negative Laboratory test 06/10/2017 Rapid Influenza A B SEE RESULT BELOW 4 finding Antigen Laboratory test 05/30/2017 C Reactive Protein 12.29 mg/L High < 5.00 5 finding Erythrocyte Sed Rate 21 mm/Hr 0-40 Laboratory test finding 05/01/2017 Esr Sedimentation Rate <pending> CRP C-Reactive Protein <pending> Comp Metabolic Panel 04/29/2017 Sodium 140 mmol/L 133-145 Potassium 3.8 mmol/L 3.5-5.0 Chloride 103 mmol/L 101-111 Co2 Carbon Dioxide 28 mmol/L 22-32 Anion Gap 9 mmol/L 2-11 Glucose 75 mg/dL 70-100 Blood Urea Nitrogen 16 mg/dL 6-24 Creatinine 0.84 mg/dL 0.51-0.95 BUN/Creatinine Ratio 19.0 8-20 Calcium 9.6 mg/dL 8.6-10.3 Total Protein 6.8 g/dL 6.4-8.9 Albumin 4.0 g/dL 3.2-5.2 Globulin 2.8 g/dL 2-4 Albumin/Globulin Ratio 1.4 1-3 Total Bilirubin 0.60 mg/dL 0.2-1.0 Alkaline Phosphatase 71 U/L 34-104 Alt 18 U/L 7-52 Ast 14 U/L 13-39 Egfr Non- 65.4 >60 Egfr 84.1 >60 6 Laboratory test finding 04/29/2017 C Reactive Protein 10.28 mg/L High &lt ; 5.00 7 CBC Auto Diff 04/29/2017 White Blood Count 11.8 10^3/uL High 3.5-10.8 Red Blood Count 5.10 10^6/uL 4.0-5.4 Hemoglobin 15.4 g/dL 12.0-16.0 Hematocrit 45 % 35-47 Mean Corpuscular Volume 89 fL 80-97 Mean Corpuscular Hemoglobin 30 pg 27-31 Mean Corpuscular HGB Conc 34 g/dL 31-36 Red Cell Distribution Width 14 % 10.5-15 Platelet Count 214 10^3/uL 150-450 Mean Platelet Volume 7 um3 Low 7.4-10.4 Abs Neutrophils 9.7 10^3/uL High 1.5-7.7 Abs Lymphocytes 1.4 10^3/uL 1.0-4.8 Abs Monocytes 0.6 10^3/uL 0-0.8 Abs Eosinophils 0 10^3/uL 0-0.6 Abs Basophils 0.1 10^3/uL 0-0.2 Abs Nucleated RBC 0 10^3/uL Granulocyte % 82.6 % 38-83 Lymphocyte % 11.5 % Low 25-47 Monocyte % 5.4 % 0-7 Eosinophil % 0 % 0-6 Basophil % 0.5 % 0-2 Nucleated Red Blood Cells % 0 Laboratory test finding 04/29/2017 Erythrocyte Sed Rate 17 mm/Hr 0-40 Alkaline Phos Isoenzymes 04/29/2017 Alkaline Phosphatase 83 U/L 55 - 142 Alp Liver 1% 45.0 % 27.8-76.3 Alp Liver 1 37.4 IU/L 16.2-70.2 Alp Liver 2% 9.2 % 0.0-8.0 Alp Liver 2 7.6 IU/L 0.0-5.8 Alp Bone % 32.3 % 19.1-67.7 Alp Bone 26.8 IU/L 12.1-42.7 Alp Intestine % 13.5 % 0.0-20.6 Alp Intestine 11.2 IU/L 0.0-11.0 Alp Placental NotPresent 8 Laboratory test 04/24/2017 Hemoglobin A1c 8.5 finding Laboratory test 04/03/2017 TSH (Thyroid Stim 0.64 mcIU/mL 0.34-5.60 finding Horm) Laboratory test 04/03/2017 C Reactive Protein 10.47 mg/L High < 5.00 9 finding Erythrocyte Sed Rate 10 mm/Hr 0-40 Basic Metabolic Panel 04/03/2017 Sodium 138 mmol/L 133-145 Potassium 4.3 mmol/L 3.5-5.0 Chloride 103 mmol/L 101-111 Co2 Carbon Dioxide 26 mmol/L 22-32 Anion Gap 9 mmol/L 2-11 Glucose 139 mg/dL High 70-100 Blood Urea Nitrogen 15 mg/dL 6-24 Creatinine 0.82 mg/dL 0.51-0.95 BUN/Creatinine Ratio 18.3 8-20 Calcium 9.5 mg/dL 8.6-10.3 Egfr Non- 67.2 >60 Egfr 86.5 >60 10 Laboratory test 03/01/2017 Point of Care Glucose 132 mg/dL High 70-100 11 finding Laboratory test 03/01/2017 Point of Care Glucose 147 mg/dL High 70-100 12 finding Laboratory test 03/01/2017 Point of Care Glucose 70 mg/dL 70-100 13 finding Laboratory test 02/19/2017 Surgical Pathology SEE RESULT BELOW 14 finding Laboratory test 02/15/2017 Erythrocyte Sed Rate 23 mm/Hr 0-40 finding C Reactive Protein 13.18 mg/L High < 5.00 15 Alkaline Phos Isoenzymes 02/11/2017 Alkaline Phosphatase 106 U/L 55 - 142 Alp Liver 1% 49.6 % 27.8-76.3 Alp Liver 1 52.6 IU/L 16.2-70.2 Alp Liver 2% 10.5 % 0.0-8.0 Alp Liver 2 11.1 IU/L 0.0-5.8 Alp Bone % 27.3 % 19.1-67.7 Alp Bone 28.9 IU/L 12.1-42.7 Alp Intestine % 12.6 % 0.0-20.6 Alp Intestine 13.4 IU/L 0.0-11.0 Alp Placental NotPresent 16 Lipid Profile (Trig/Chol/HDL) 02/11/2017 Triglycerides 88 mg/dL 17 Cholesterol 145 mg/dL 18 HDL Cholesterol 66.1 mg/dL 19 LDL Cholesterol 61 mg/dL 20 Urine Microalbumin Random 02/11/2017 Ur Microalbumin (mg/L) [...] Egfr Non- 72.3 >60 Egfr 93.0 >60 21 Comp Metabolic Panel 01/25/2017 Sodium 138 mmol/L [...] Egfr Non- 59.0 >60 Egfr 75.9 >60 22 Laboratory test finding 01/25/2017 Erythrocyte Sed Rate 13 mm/Hr 0-40 23 C Reactive Protein 2.84 mg/L < 5.00 24 CBC Auto Diff 01/25/2017 White Blood Count [...] 0-2 Nucleated Red Blood Cells % 0 Laboratory test finding 12/12/2016 Erythrocyte Sed Rate 33 mm/Hr 0-40 25 C Reactive Protein 11.32 mg/L High < 5.00 26 Basic Metabolic Panel 12/12/2016 Sodium 139 mmol/L 133-145 Potassium 4.0 mmol/L 3.5-5.0 Chloride 104 mmol/L 101-111 Co2 Carbon Dioxide 27 mmol/L 22-32 Anion Gap 8 mmol/L 2-11 Glucose 169 mg/dL High 70-100 Blood Urea Nitrogen 13 mg/dL 6-24 Creatinine 0.79 mg/dL 0.51-0.95 BUN/Creatinine Ratio 16.5 8-20 Calcium 9.6 mg/dL 8.6-10.3 Egfr Non- 70.4 >60 Egfr 90.5 >60 27 Laboratory test finding 11/06/2016 Nuclear AB (Jane) By <1:80 (Negative) 28 Ifa Igg Rheumatoid Factor <15 IU/mL <15 29 Cyclic Citrullinated Pep Igg <15.6 U 30 Comp Metabolic Panel 11/06/2016 Sodium 137 mmol/L [...] Egfr Non- 75.9 >60 Egfr 97.6 >60 31 Laboratory test finding 11/01/2016 C Reactive Protein 38.09 mg/L High &lt ; 5.00 32 Erythrocyte Sed Rate 64 mm/Hr High 0-40 Laboratory test finding 11/01/2016 Lyme Disease Serology Negative Negative 33 Laboratory test finding 10/10/2016 Creatine Kinase(CK) 34 U/L 10-223 C Reactive Protein 31.29 mg/L High < 5.00 34 Erythrocyte Sed Rate 57 mm/Hr High 0-40 Laboratory test finding 09/26/2016 Erythrocyte Sed Rate 51 mm/Hr High 0- 40 C Reactive Protein 27.16 mg/L High < 5.00 35 Comp Metabolic Panel 08/28/2016 Sodium 139 mmol/L [...] Egfr Non- 78.3 >60 Egfr 100.8 >60 36 Laboratory test finding 08/28/2016 C Reactive Protein 19.29 mg/L High &lt ; 5.00 37 Protein Electrophoresis 08/28/2016 Total Protein(Pep) 7.2 g/dL 6.3 - 7.9 Albumin 3.2 g/dL 3.4-4.7 Alpha-1 Globulin 0.4 g/dL 0.1-0.3 Alpha-2 Globulin 1.2 g/dL 0.6-1.0 Beta Globulin 1.0 g/dL 0.7-1.2 Gamma Globulin 1.5 g/dL 0.6-1.6 Albumin/Globulin Ratio 0.79 Impression See Comment 38 CBC Auto Diff 08/28/2016 White Blood Count [...] 0-2 Nucleated Red Blood Cells % 0.1 Laboratory test finding 08/28/2016 Erythrocyte Sed Rate 45 mm/Hr High 0- 40 Lipid Profile (Trig/Chol/HDL) 01/30/2016 Triglycerides 92 mg/dL 39 Cholesterol 140 mg/dL 40 HDL Cholesterol 53.1 mg/dL 41 LDL Cholesterol 69 mg/dL 42 Comp Metabolic Panel 01/30/2016 Sodium 138 mmol/L [...] Egfr Non- 61.5 >60 Egfr 79.1 >60 43 Urine Microalbumin Random 01/30/2016 Urine Creatinine 117.49 mg/dL Ur Microalbumin (mg/L) 17.8 mg/L Urine Microalbumin/Creatinine 15.1 ug/mg <31 Laboratory test finding 01/30/2016 TSH (Thyroid Stim Horm) 1.59 mcIU/mL 0.34-5.60 Urine Microalbumin 05/10/2015 Ur Microalbumin (mg/L) 8.0 mg/L 44 Random Urine Creatinine 155.67 mg/dL 44 Urine Microalbumin/Creatinine 5.1 ug/mg <31 44 Comp Metabolic Panel 05/10/2015 Sodium 139 mmol/L 133-145 44 Potassium 3.9 mmol/L 3.5-5.0 44 Chloride 105 mmol/L 101-111 44 Co2 Carbon Dioxide 28 mmol/L 22-32 44 Anion Gap 6 mmol/L 2-11 44 Glucose 131 mg/dL High 70-100 44 Blood Urea Nitrogen 15 mg/dL 6-24 44 Creatinine 0.85 mg/dL 0.51-0.95 44 BUN/Creatinine Ratio 17.6 8-20 44 Calcium 9.4 mg/dL 8.6-10.3 44 Total Protein 7.0 g/dL 6.4-8.9 44 Albumin 4.2 g/dL 3.2-5.2 44 Globulin 2.8 g/dL 2-4 44 Albumin/Globulin Ratio 1.5 1-3 44 Total Bilirubin 0.60 mg/dL 0.2-1.0 44 Alkaline Phosphatase 88 U/L 34-104 44 Alt 19 U/L 7-52 44 Ast 15 U/L 13-39 44 Egfr Non- 64.9 >60 44 Egfr 83.4 >60 44, 45 Lipid Profile (Trig/Chol/HDL) 05/10/2015 Triglycerides 83 mg/dL 44, 46 Cholesterol 130 mg/dL 44, 47 HDL Cholesterol 58.4 mg/dL 44, 48 LDL Cholesterol 55 mg/dL 44, 49 Liver Function Panel 05/10/2015 Direct Bilirubin 0.10 mg/dL 0.03-0.18 44 Indirect Bilirubin 0.5 mg/dL 0.3-1.0 44 Laboratory test finding 05/10/2015 TSH (Thyroid Stim 1.59 ?IU/mL 0.34- 5.60 44, 50 Horm) Vitamin B12 730 pg/mL 180-914 44, 51 CBC Auto Diff 01/11/2015 White Blood Count [...] Egfr Non- 65.9 >60 Egfr 84.8 >60 52 Laboratory test finding 01/11/2015 Magnesium 1.8 mg/dL Low 1.9-2.7 Troponin-I (TnI) 0.00 ng/mL <0.03 53 TSH (Thyroid Stim Horm) 0.50 ?IU/mL 0.34-5.60 Laboratory test 01/06/2015 Gardnerella/Yeast: Vaginal SEE RESULT BELOW 54 finding Dna Ua And Culture 01/06/2015 Urine Culture And SEE RESULT BELOW 55 Sensitivity Sensitivities Ua Routine 01/06/2015 Ua Specific [place] 1.020 Ua PH 5 Ua Color yellow Ua Appera cloudy Ua WBC trace Ua Protein neg Ua Glucose + Ua Ketones neg Ua Bilirubin neg Ua Urobilinogen neg Ua Nitrite neg Ua Occult Blood moderate Laboratory test 12/29/2014 Urine Culture And SEE RESULT 56 finding Sensitivities BELOW Laboratory test 12/29/2014 Hemoglobin A1c (Glyco 7.4 % High Less than 57 finding HGB) 6.0 Ua And Culture 12/20/2014 Urine Culture And SEE RESULT 58 Sensitivity Sensitivities BELOW Urinalysis Profile 12/20/2014 Urine Color Yellow Urine Appearance Cloudy Urine Specific [place] 1.020 1.010-1.030 Urine pH 5.0 5-9 Urine [...] Present Absent Ua Routine 12/20/2014 Ua Specific [place] 1.020 Ua PH 5.0 Ua Color dorothy Ua Appera clear Ua WBC neg Ua Protein neg Ua Glucose 2000+ Ua Ketones trace Ua Bilirubin small Ua Urobilinogen normal Ua Nitrite neg Ua Occult Blood large Comp Metabolic Panel 05/03/2014 Sodium 140 mmol/L 133-145 59 Potassium 4.0 mmol/L 3.5-5.0 59 Chloride 106 mmol/L 101-111 59 Co2 Carbon Dioxide 28 mmol/L 22-32 59 Anion Gap 6 mmol/L 2-11 59 Glucose 114 mg/dL High 70-100 59 Blood Urea Nitrogen 11 mg/dL 6-24 59 Creatinine 0.74 mg/dL 0.51-0.95 59 BUN/Creatinine Ratio 14.9 8-20 59 Calcium 9.4 mg/dL 8.6-10.3 59 Total Protein 7.1 g/dL 6.4-8.9 59 Albumin 4.3 g/dL 3.2-5.2 59 Globulin 2.8 g/dL 2-4 59 Albumin/Globulin Ratio 1.5 1-3 59 Total Bilirubin 0.60 mg/dL 0.2-1.0 59 Alkaline Phosphatase 84 U/L 34-104 59 Alt 22 U/L 7-52 59 Ast 17 U/L 13-39 59 Egfr Non- 76.3 >60 59 Egfr 98.1 >60 59, 60 Lipid Profile (Trig/Chol/HDL) 05/03/2014 Triglycerides 110 mg/dL 59, 61 Cholesterol 141 mg/dL 59, 62 HDL Cholesterol 56.6 mg/dL 59, 63 LDL Cholesterol 62 mg/dL 59, 64 Laboratory test finding 05/03/2014 Vitamin B12 688 pg/mL 180-914 59, 65 TSH (Thyroid Stimulating Horm) 1.88 IU/mL 0.34-5.60 59, 66 Urine Microalbumin Random 05/03/2014 Ur Microalbumin (mg/L) 23.0 mg/L 59 Urine Creatinine 152.94 mg/dL 59 Urine Microalbumin/Creatinine 15.0 Less Than 31 59 Basic Metabolic Panel 12/01/2013 Sodium 137 mmol/L 133-145 Potassium 3.7 mmol/L 3.7-5.6 Chloride 105 mmol/L 101-111 Co2 Carbon Dioxide 25 mmol/L 22-32 Anion Gap 7 mmol/L 2-11 Glucose 167 mg/dL High 70-100 Blood Urea Nitrogen 18 mg/dL 6-24 Creatinine 0.81 mg/dL 0.51-0.95 BUN/Creatinine Ratio 22.2 High 8-20 Calcium 9.7 mg/dL 8.6-10.3 Egfr Non- 68.9 >60 Egfr 88.6 >60 67 Laboratory test finding 12/01/2013 Aldosterone 5.7 ng/dL <=21 68 Renin 5.7 ng/mL/h 69 Urine Culture And Sensitivities 11/18/2013 Urine Culture (SEE NOTE) 70 Ua Routine 11/18/2013 Ua Specific [place] 1.010 Ua PH 6 Ua Color yellow Ua Appera cloudy Ua WBC trace Ua Protein neg Ua Glucose 2000++++ Ua Ketones neg Ua Bilirubin neg Ua Urobilinogen norm Ua Nitrite neg Ua Occult Blood large 200 Basic Metabolic Panel 08/14/2013 Sodium 139 mmol/L 133-145 Potassium 3.8 mmol/L 3.7-5.6 Chloride 108 mmol/L 101-111 Co2 Carbon Dioxide 22 mmol/L 22-32 Anion Gap 9 mmol/L 2-11 Glucose 212 mg/dL High 70-100 Blood Urea Nitrogen 15 mg/dL 6-24 Creatinine 0.79 mg/dL 0.51-0.95 BUN/Creatinine Ratio 19.0 8-20 Calcium 9.5 mg/dL 8.6-10.3 Egfr Non- 70.9 >60 Egfr 91.2 >60 71 Comp Metabolic Panel 07/08/2013 Sodium 140 mmol/L [...] Egfr Non- 76.5 >60 Egfr 98.4 >60 72 Urine Microalbumin 05/28/2013 Ur Microalbumin (mg/L) 38.0 mg/dL <30 73, 74 Random Urine Creatinine 161.41 mg/dL 73 Urine Microalbumin/Creatinine 23.5 Less Than 31 73 Lipid Profile (Trig/Chol/HDL) 05/28/2013 Triglycerides 87 mg/dL 73, 75 Cholesterol 128 mg/dL 73, 76 HDL Cholesterol 57.0 mg/dL 73, 77 LDL Cholesterol 54 mg/dL 73, 78 Laboratory test finding 02/03/2013 TSH (Thyroid Stimulating [...] Egfr Non- 81.8 >60 Egfr 105.2 >60 79 Laboratory test finding 10/02/2012 Hemoglobin A1c 7.6 % High Less than 6.0 80 Lipid Profile 10/02/2012 Triglycerides 109 mg/dL 40-200 (Trig/Chol/HDL) Cholesterol 125 mg/dL Less than 200 HDL Cholesterol 52 mg/dL 40-60 81 Cholesterol/HDL Ratio 2.4 Average 1-4.44 LDL Cholesterol 51.2 Less Than 100 82 Urine Microalbumin Random 10/02/2012 Ur Microalbumin (mg/L) 22.0 mg/L 83 Urine Creatinine 132.9 mg/dL Urine Microalbumin/Creatinine 16.6 Less Than 31 Laboratory test finding 08/14/2012 Hemoglobin A1c 7.7 High 5-7 Urine Culture And 07/17/2012 Urine Culture (SEE NOTE) 84 Sensitivities Ua Routine 07/17/2012 Ua Specific [place] 1.020 Ua PH 5 Ua Color yellow Ua Appera cloudy Ua WBC small Ua Protein neg Ua Glucose 1000 Ua Ketones neg Ua Bilirubin small Ua Urobilinogen neg Ua Nitrite neg Ua Occult Blood moderate Laboratory test finding 04/28/2012 Hemoglobin A1c 7.5 High 5-7 Urinalysis W/Microscopic 03/05/2012 Urine Color Yellow Urine Appearance Turbid Urine Specific [place] 1.031 High 1.010-1.030 Urine Esterase Trace Negative Urine Nitrate Negative Negative Urine Urobilinogen Negative E.U./dL Negative Urine Protein Negative mg/dL Negative Urine pH 5.0 5-9 Urine Blood 1+ Negative Urine Ketones Negative mg/dL Negative Urine Bilirubin Negative Negative 85 Urine Glucose 3+ mg/dL Negative Urine WBC 1+ (<10 /hpf) None Seen Urine RBC None Seen None Seen Urine Epithelial Cells 1+ Squamous /hpf None Seen Bacteria Urine 1+ None Seen Crystals Urine Amorphous /lpf None Seen Urine Culture And Sensitivities 03/05/2012 Urine Culture (SEE NOTE) 86 Ua Routine 03/05/2012 Ua Specific [place] 1.025 Ua PH 6 Ua Color yellow Ua Appera clear Ua WBC neg Ua Protein neg Ua Glucose +4 Ua Ketones neg Ua Bilirubin small Ua Urobilinogen neg Ua Nitrite neg Ua Occult Blood small + Laboratory test finding 01/14/2012 Hemoglobin A1c 7.7 High 5-7 Urinalysis W/Microscopic 10/29/2011 Ua Color YELLOW Yellow Appearance-Urine CLEAR Clear Specific [place]-Ur 1.014 1.010-1.030 Esterase-Urine TRACE Negative Nitrite NEGATIVE Negative [id number] NEGATIVE Negative Protein-Urine NEGATIVE Negative PH-Urine 5.0 5-9 Blood-Urine 1+ Negative Ketones-Urine NEGATIVE Negative Bilirubin-Ur NEGATIVE Negative Glucose-Urine 2+ Negative WBC-Urine 0-2 0-5 RBC-Urine 0-2 0-2 Epith Cells-Ur SMALL None Bacteria-Urine TRACE None Laboratory test finding 10/29/2011 Troponin-I 0 NG/ML 0-0.06 87 Comp Metabolic Panel 10/29/2011 Sodium 136 mmol/L 135-145 Potassium 4.0 mmol/L 3.5-5.0 Chloride 105 mmol/L 101-111 Co2 (Carbon Dioxide) 25.0 mmol/L 22-32 Anion Gap 6.0 mmol/L 2-11 88 Glucose 181 mg/dL High 70-100 BUN 12 mg/dL 6-24 Creatinine 0.8 mg/dL 0.50-1.40 One Over Creatinine 1.25 BUN/Creatinine Ratio 15.0 8-20 Calcium 9.5 mg/dL 8.1-9.9 Total Protein 6.8 GM/DL 6.2-8.1 Albumin 4.0 GM/DL 3.2-5.2 Globulin 2.8 GM/DL 2-4 Albumin/Globulin Ratio 1.4 1-3 Bilirubin Total 0.4 mg/dL 0.4-1.5 89 Alkaline Phosphatase 91 U/L 30-110 Alt (SGPT) 28 U/L 14-54 Ast (Sgot) 26 U/L 12-42 eGFR Non- 70.3 > 60 eGFR 90.4 > 60 90 CBC Auto Diff 10/29/2011 White Blood Count [...] Eosinophils 0.1 0-0.6 Abs Basophils 0.1 0-0.2 Laboratory test finding 10/29/2011 Troponin-I 0 NG/ML 0-0.06 91 Urinalysis W/Microscopic 10/19/2011 Ua Color YELLOW Yellow Appearance-Urine CLEAR Clear Specific [place]-Ur 1.017 1.010-1.030 Esterase-Urine 1+ Negative Nitrite NEGATIVE Negative Uggiosvklfnl-Ag-ANE NEGATIVE Negative Protein-Urine NEGATIVE Negative PH-Urine 5.0 5-9 Blood-Urine 1+ Negative Ketones-Urine NEGATIVE Negative Bilirubin-Ur NEGATIVE Negative Glucose-Urine 3+ Negative WBC-Urine 1-6 0-5 RBC-Urine 0-2 0-2 Mucus Urine MODERATE None Epith Cells-Ur MODERATE None Bacteria-Urine 1+ None Urine Culture & 10/19/2011 M <SEE 92 Sensitivi NOTE> Lipid Profile 10/03/2011 Triglyceride 103 mg/dL 40-200 (Trig/Chol/HDL) Cholesterol 130 mg/dL Less Than 200 93 High Density Lipoprotein 48 mg/dL 40-60 94 Cholesterol/HDL Ratio 2.71 AVERAGE 1-4.44 Low Density Lipoprotein 61 mg/dL Less Than 100 95 Comp Metabolic Panel 10/03/2011 Sodium 140 mmol/L 135-145 Potassium 3.5 mmol/L 3.5-5.0 Chloride 106 mmol/L 101-111 Co2 (Carbon Dioxide) 29.0 mmol/L 22-32 Anion Gap 5.0 mmol/L 2-11 96 Glucose 172 mg/dL High 70-100 BUN 10 mg/dL 6-24 Creatinine 0.7 mg/dL 0.50-1.40 One Over Creatinine 1.42 BUN/Creatinine Ratio 14.3 8-20 Calcium 9.2 mg/dL 8.1-9.9 Total Protein 6.4 GM/DL 6.2-8.1 Albumin 3.8 GM/DL 3.2-5.2 Globulin 2.6 GM/DL 2-4 Albumin/Globulin Ratio 1.5 1-3 Bilirubin Total 0.8 mg/dL 0.4-1.5 97 Alkaline Phosphatase 92 U/L 30-110 Alt (SGPT) 27 U/L 14-54 Ast (Sgot) 18 U/L 12-42 eGFR Non- 82.0 > 60 eGFR 105.5 > 60 98 Urine Microalbumin Random 10/03/2011 Microalbumin (MG/L) 24.0 mg/L Urine Creatinine 155.4 mg/dL Gerber Alb/Creatinine Ratio 15.4 UG/MG Less Than 30 99 Laboratory test finding 10/03/2011 TSH 1.95 MIU/ML 0.34-5.60 Hemoglobin A1c 7.6 % High Less Than 6.0 100 Urine Culture 08/21/2011 M 101 & Sensitivi <SEE NOTE> Laboratory test 07/05/2011 Hemoglobin A1c 7.4 High 5-7 finding Laboratory test 06/19/2011 Culture 102 finding Sensitivity/Gram <SEE NOTE> St Laboratory test 04/12/2011 Hemoglobin A1c 7.3 % High Less Than 103 finding 6.0 Potassium 4.0 mmol/L 3.5-5.0 Laboratory test finding 01/15/2011 Hemoglobin A1c 7.6 % High Less Than 6.0 104 Comp Metabolic Panel 01/15/2011 Sodium 140 mmol/L 135-145 Potassium 3.9 mmol/L 3.5-5.0 Chloride 107 mmol/L 101-111 Co2 (Carbon Dioxide) 28.0 mmol/L 22-32 Anion Gap 5.0 mmol/L 2-11 105 Glucose 197 mg/dL High 70-100 BUN 14 mg/dL 6-24 Creatinine 0.8 mg/dL 0.50-1.40 One Over Creatinine 1.25 BUN/Creatinine Ratio 17.5 8-20 Calcium 9.3 mg/dL 8.1-9.9 Total Protein 7.0 GM/DL 6.2-8.1 Albumin 3.9 GM/DL 3.2-5.2 Globulin 3.1 GM/DL 2-4 Albumin/Globulin Ratio 1.3 1-3 Bilirubin Total 0.8 mg/dL 0.4-1.5 106 Alkaline Phosphatase 87 U/L 30-110 Alt (SGPT) 41 U/L 14-54 Ast (Sgot) 28 U/L 12-42 eGFR Non- 70.5 > 60 eGFR 90.7 > 60 107 Lipid Profile (Trig/Chol/HDL) 01/15/2011 Triglyceride 137 mg/dL 40-200 Cholesterol 136 mg/dL Less Than 200 108 High Density Lipoprotein 44 mg/dL 40-60 109 Cholesterol/HDL Ratio 3.09 AVERAGE 1-4.44 Low Density Lipoprotein 65 mg/dL Less Than 100 110 Laboratory test 01/15/2011 TSH 1.38 MIU/ML 0.34-5.60 finding Laboratory test 11/16/2010 Clotest NEGATIVE finding Surgical Pathology 11/16/2010 Surgical Pathology 111 <SEE NOTE> Comp Metabolic Panel 10/16/2010 Sodium 138 mmol/L 135-145 Potassium 4.1 mmol/L 3.5-5.0 Chloride 106 mmol/L 101-111 Co2 (Carbon Dioxide) 24.0 mmol/L 22-32 Anion Gap 8.0 mmol/L 2-11 112 Glucose 193 mg/dL High 70-100 BUN 10 mg/dL 6-24 Creatinine 0.70 mg/dL 0.50-1.40 One Over Creatinine 1.40 BUN/Creatinine Ratio 14.3 8-20 Calcium 9.5 mg/dL 8.1-9.9 Total Protein 6.7 GM/DL 6.2-8.1 Albumin 4.1 GM/DL 3.2-5.2 Globulin 2.6 GM/DL 2-4 Albumin/Globulin Ratio 1.6 1-3 Bilirubin Total 0.6 mg/dL 0.4-1.5 113 Alkaline Phosphatase 72 U/L 30-110 Alt (SGPT) 27 U/L 14-54 Ast (Sgot) 22 U/L 12-42 eGFR Non- 82.3 > 60 eGFR 105.8 > 60 114 Laboratory test finding 10/16/2010 Lipase 35 U/L 22-51 CBC Auto Diff 10/16/2010 White Blood Count [...] Eosinophils 0.1 0-0.6 Abs Basophils 0 0-0.2 115 Comp Metabolic Panel 10/04/2010 Sodium 139 mmol/L 135-145 Potassium 3.4 mmol/L Low 3.5-5.0 Chloride 106 mmol/L 101-111 Co2 (Carbon Dioxide) 26.0 mmol/L 22-32 Anion Gap 7.0 mmol/L 2-11 116 Glucose 248 mg/dL High 70-100 BUN 9 mg/dL 6-24 Creatinine 0.90 mg/dL 0.50-1.40 One Over Creatinine 1.10 BUN/Creatinine Ratio 10.0 8-20 Calcium 9.2 mg/dL 8.1-9.9 Total Protein 6.5 GM/DL 6.2-8.1 Albumin 4.0 GM/DL 3.2-5.2 Globulin 2.5 GM/DL 2-4 Albumin/Globulin Ratio 1.6 1-3 Bilirubin Total 0.8 mg/dL 0.4-1.5 117 Alkaline Phosphatase 72 U/L 30-110 Alt (SGPT) 25 U/L 14-54 Ast (Sgot) 23 U/L 12-42 eGFR Non- 61.5 > 60 eGFR 79.2 > 60 118 Urine Microalbumin Random 10/04/2010 Microalbumin (MG/L) 30.0 mg/L Urine Creatinine 222.74 mg/dL Gerber Alb/Creatinine Ratio 13.4 UG/MG Less Than 30 119 Laboratory test 10/04/2010 Hemoglobin A1c 7.8 % High Less Than 6.0 120 finding Surgical Pathology 08/10/2010 Surgical Pathology 121 --- <SEE NOTE> Comp Metabolic Panel 06/26/2010 Sodium 137 mmol/L 135-145 Potassium 3.5 mmol/L 3.5-5.0 Chloride 106 mmol/L 101-111 Co2 (Carbon Dioxide) 23.0 mmol/L 22-32 Anion Gap 8.0 mmol/L 2-11 122 Glucose 275 mg/dL High 70-100 BUN 13 mg/dL 6-24 Creatinine 0.70 mg/dL 0.50-1.40 One Over Creatinine 1.40 BUN/Creatinine Ratio 18.6 8-20 Calcium 9.0 mg/dL 8.1-9.9 Total Protein 6.5 GM/DL 6.2-8.1 Albumin 3.8 GM/DL 3.2-5.2 Globulin 2.7 GM/DL 2-4 Albumin/Globulin Ratio 1.4 1-3 Bilirubin Total 0.8 mg/dL 0.4-1.5 123 Alkaline Phosphatase 67 U/L 30-110 Alt (SGPT) 25 U/L 14-54 Ast (Sgot) 22 U/L 12-42 eGFR Non- 82.3 > 60 eGFR 105.8 > 60 124 Laboratory test finding 06/26/2010 Hemoglobin A1c 7.6 % High Less Than 6.0 125 International Normalized Ratio 04/15/2010 Inr 0.90 0.82-1.17 126 Protime 10.5 SEC 10.2-14.8 127 Laboratory test finding 04/15/2010 PTT (Aptt) 26.4 25.15-38.53 Comp Metabolic Panel 04/15/2010 Sodium 138 mmol/L 135-145 Potassium 4.2 mmol/L 3.5-5.0 Chloride 105 mmol/L 101-111 Co2 (Carbon Dioxide) 27.0 mmol/L 22-32 Anion Gap 6.0 mmol/L 2-11 128 Glucose 195 mg/dL High 70-100 BUN 15 mg/dL 6-24 Creatinine 0.90 mg/dL 0.50-1.40 One Over Creatinine 1.10 BUN/Creatinine Ratio 16.7 8-20 Calcium 9.4 mg/dL 8.1-9.9 Total Protein 7.0 GM/DL 6.2-8.1 Albumin 4.1 GM/DL 3.2-5.2 Globulin 2.9 GM/DL 2-4 Albumin/Globulin Ratio 1.4 1-3 Bilirubin Total 0.9 mg/dL 0.4-1.5 129 Alkaline Phosphatase 77 U/L 30-110 Alt (SGPT) 34 U/L 14-54 Ast (Sgot) 32 U/L 12-42 eGFR Non- 61.5 > 60 eGFR 79.2 > 60 130 Laboratory test finding 04/15/2010 Lipase 33 U/L 22-51 CPK (Creatine Kinase) 81 U/L 0-170 CKMB 04/15/2010 CKMB In NG/ML 1.1 NG/ML 0.3-4.0 % CKMB 1 %MB 0-9 131 Laboratory test finding 04/15/2010 Troponin-I 0 NG/ML 0-0.06 132 Hemogram 04/15/2010 White Blood Count 6.9 CUMM 4.8-10.8 Red Cell Count 4.77 CUMM 4.2-5.4 Hemoglobin 14.9 g/dL 12.0-16.0 Hematocrit 44 % 35-47 Mean Corpuscular Volume 92 um3 79-97 Mean Corpuscular Hemoglob 31 pg 27-31 Mean Corpuscular HGB Cone 34 g/dL 32-36 Redcell Distribution WDTH 13 % 10.5-15 Platelet Count 159 CUMM 150-450 Mean Platelet Volume 8.2 um3 7.4-10.4 Laboratory test finding 03/23/2010 Hemoglobin A1c 7.1 % High Less Than 6.0 133 Laboratory test finding 12/15/2009 TSH 1.84 MIU/ML 0.34-5.60 Hemoglobin A1c 7.3 % High Less Than 6.0 134 Lipid Profile (Trig/Chol/HDL) 12/15/2009 Triglyceride 99 mg/dL 40-200 Cholesterol 133 mg/dL Less Than 200 135 High Density Lipoprotein 54 mg/dL 40-60 136 Cholesterol/HDL Ratio 2.46 AVERAGE 1-4.44 Low Density Lipoprotein 59 mg/dL Less Than 100 137 Comp Metabolic Panel 12/15/2009 Sodium 140 mmol/L 135-145 Potassium 4.1 mmol/L 3.5-5.0 Chloride 106 mmol/L 101-111 Co2 (Carbon Dioxide) 29.0 mmol/L 22-32 Anion Gap 5.0 mmol/L 2-11 138 Glucose 165 mg/dL High 70-100 139 BUN 13 mg/dL 6-24 Creatinine 0.80 mg/dL 0.50-1.40 One Over Creatinine 1.20 BUN/Creatinine Ratio 16.3 8-20 Calcium 9.5 mg/dL 8.1-9.9 Total Protein 7.2 GM/DL 6.2-8.1 Albumin 4.2 GM/DL 3.2-5.2 Globulin 3.0 GM/DL 2-4 Albumin/Globulin Ratio 1.4 1-3 Bilirubin Total 0.7 mg/dL 0.4-1.5 140 Alkaline Phosphatase 73 U/L 30-110 Alt (SGPT) 31 U/L 14-54 Ast (Sgot) 23 U/L 12- eGFR Non- 75.2 > 60 eGFR 90.9 > 60 141 Laboratory test 09/12/2009 Hemoglobin A1c 7.0 % High Less Than 6.0 142 finding Urine Microalbumin 09/12/2009 Microalbumin (MG/L) 15.0 mg/L Random Urine Creatinine 181.39 mg/dL Gerber Alb/Creatinine Ratio 8.2 UG/MG Less Than 30 143 Comp Metabolic Panel 09/12/2009 Sodium 140 mmol/L 135-145 Potassium 3.6 mmol/L 3.5-5.0 Chloride 108 mmol/L 101-111 Co2 (Carbon Dioxide) 25.0 mmol/L 22-32 Anion Gap 7.0 mmol/L 2-11 144 Glucose 160 mg/dL High 70-100 145 BUN 13 mg/dL 6-24 Creatinine 0.70 mg/dL 0.50-1.40 One Over Creatinine 1.40 BUN/Creatinine Ratio 18.6 8-20 Calcium 9.3 mg/dL 8.1-9.9 146 Total Protein 6.9 GM/DL 6.2-8.1 Albumin 4.0 GM/DL 3.2-5.2 Globulin 2.9 GM/DL 2-4 Albumin/Globulin Ratio 1.4 1-3 Bilirubin Total 0.6 mg/dL 0.4-1.5 147 Alkaline Phosphatase 77 U/L 30-110 Alt (SGPT) 30 U/L 14-54 Ast (Sgot) 20 U/L 12-42 eGFR Non- 87.7 > 60 eGFR 106.1 > 60 148 Total Protein 24HR Urine 09/12/2009 Total Protein Random Urine 4 mg/dL Urine Total Protein/24HR 36 MG/24HR Low 50-100 Creatinine Clearance 09/12/2009 Creatinine Random Urine 75.82 mg/dL Creat Clearance 68 mL/min Low 80-125 Hours Of Collection 24 HR 24- Urine Volume Measurement 900 ML 1 Please check labs in 1 month 2 Acute inflammation: >10.00 3 Low Pressure Boiler Operator: [id number] 4 SEE RESULT BELOW Name: MARCOS JOHNSTON : [address]: Paty Newman MD Acct: [id number] Unit: [id number] AGE: 77 Location: [facility] Re06/10/17 SEX: F Status: REG REF SPEC: [id number] JASEN: 06/10/17-[address] [facility] [address]: Paty Newman MD REQ: [id number] RECD: 06/10/17 STATUS: COMP _ [facility] ORDERED: Milton Jordan Request COMMENTS: [id number] Procedure Result Reported Site Rapid Influenza A B Request Final 06/10/171935 ML Specimen received for Influenza A/B Molecular testing * ML - Main Lab . END OF REPORT DEPARTMENT OF PATHOLOGY, [address] [place] [address] Kojo Holley M.D. Director [facility] # [id number] 5 Acute inflammation: >10.00 6 Because ethnic data is not always [...] 5 Kidney failure <15 (or dialysis) 7 Acute inflammation: >10.00 8 REFERENCE VALUE Not present Test Performed by: [address] [address] 9 Acute inflammation: >10.00 10 Because ethnic [...] 5 Kidney failure <15 (or dialysis) 11 Low Pressure Boiler Operator: [id number] 12 Low Pressure Boiler Operator: [id number] 13 Low Pressure Boiler Operator: [id number] 14 SEE RESULT BELOW Name: MARCOS JOHNSTON : [address]: Sebastian Gee MD Acct: [id number] Unit: [id number] AGE: 77 Location: [facility] Re02/19/17 SEX: F Status: REG REF SPEC: [id number] JASEN: 02/19/17-[address] [facility] [address]: Sebastian Gee MD REQ: [id number] RECD: 02/19/17 STATUS: GEOVANNY HILARIO DR: Paty Barth MD _ ORDERED: LEVEL 4 COMMENTS: [id number] FINAL DIAGNOSIS Right temporal artery, biopsy: -- Benign arterial tissue with no significant pathologic abnormalities. COMMENT: Histologic sections show benign arterial tissue with an intact internal elastic lamina and no evidence of significant lymphocytic, histiocytic, or neutrophilic inflammation. 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 Clinical-pathologic correlation is recommended. CLINICAL HISTORY No history given GROSS DESCRIPTION The specimen is received in formalin labeled, Right Temporal Artery Biopsy, and consists of a 3.0 x 0.2 cm arellano-ayala tubular soft tissue fragment which is serially sectioned and entirely submitted in one cassette. Signed (signature on file) Gill Kwok MD 1001 END OF REPORT * ML=Testing performed at Main Lab DEPARTMENT OF PATHOLOGY, [address] [place] [address] Kojo Holley M.D. Director [facility] # [id number] 15 Acute inflammation: >10.00 16 REFERENCE VALUE Not present Test Performed by: [facility] [address] [place] [address] 17 Desirable: <150 Borderline High: 150-199 High: 200-499 Very High: >500 18 Desirable: <200 Borderline High: 200-239 High: >239 19 Low: <40 Desirable: 40-60 High: >60 20 Desirable: <100 Near Optimal: 100-129 Borderline High: 130-159 High: 160-189 Very High: >189 21 Because ethnic data is not always [...] 5 Kidney failure <15 (or dialysis) 22 Because ethnic data is not always [...] 5 Kidney failure <15 (or dialysis) 23 Please schedule 2 days before follow up 24 Acute inflammation: >10.00 25 Please check xrays today 26 Acute inflammation: >10.00 27 Because ethnic data is not always readily [...] 15-29 5 Kidney failure <15 (or dialysis) 28 <1:80 (Negative) REFERENCE VALUE <1:80 (Negative) Test Performed by: [place] [address] 29 Test Performed by: [facility] [address] [place] [address] 30 REFERENCE VALUE <20.0 (Negative) Test Performed by: [place] [address] 31 Because ethnic data is not always [...] 5 Kidney failure <15 (or dialysis) 32 Acute inflammation: >10.00 33 Serologic response to B. burgdorferi infection is not detected, but cannot rule out early infection during which low or undetectable antibody levels to B. burgdorferi may be present. If clinically indicated, a new serum specimen should be submitted in 7-14 days. Test Performed by: [facility] [address] [place] [address] 34 Acute inflammation: >10.00 35 Acute inflammation: >10.00 36 Because ethnic data is not always readily [...] 15-29 5 Kidney failure <15 (or dialysis) 37 Acute inflammation: >10.00 38 RESULT: No apparent monoclonal protein on serum electrophoresis. Test Performed by: [facility] [address] [place] [address] 39 Desirable <150 Borderline high 150-199 High 200-499 Very High >500 40 Desirable <200 Borderline high 200-239 High >239 41 Low <40 Desirable: 40-60 High: >60 42 Desirable: <100 mg/dL Near Optimal: 100-129 mg/dL Borderline High: 130-159 mg/dL High: 160-189 mg/dL Very High: >189 mg/dL 43 Because ethnic data is not always readily [...] 15-29 5 Kidney failure <15 (or dialysis) 44 PT IS FASTING 45 Because ethnic data is not [...] Low <40 Desirable: 40-60 High: >60 49 Desirable: <100 mg/dL Near Optimal: 100-129 mg/dL Borderline High: 130-159 mg/dL High: 160-189 mg/dL Very High: >189 mg/dL 50 PT IS FASTING 51 Normal Range 180 to 914 Indeterminate Range 145 to 180 Deficient Range <145 52 Because ethnic data is not always [...] 5 Kidney failure <15 (or dialysis) 53 Reference Range and Interpretation: TnI (ng/mL) Interpretation Less Than 0.03 ng/mL Not supportive of diagnosis of MO 0.03 - 0.50 ng/mL Indeterminate: suggest serial studies if clinically indicated. Greater than 0.5 ng/mL Consistent with diagnosis of MO 54 SEE RESULT BELOW Name: MARCOS JOHNSTON : [address]: Paty Newman MD Acct: [id number] Unit: [id number] AGE: 74 Location: [facility] Re01/06/15 SEX: F Status: REG REF SPEC: [id number] JASEN: 01/06/[address] [facility] [address]: Paty Newman MD REQ: [id number] RECD: 01/06/15 STATUS: COMP _ SOURCE: VAGINAL [...] ON NEXT PAGE * ML=Testing performed at [facility] Lab DEPARTMENT OF PATHOLOGY, [address] [place] [address] Kojo Holley M.D. Director [facility] # [id number] Patient: VICKIEMARCOS [id number] (Continued) Specimen: [id number] Collected: 01/06/15-133 Received: 01/06/15-163 (Continued) Procedure Result Verified Site Trichomonas: Vaginal DNA Probe Final (continued) 01/07/15- 1023 The presence or absence of T. vaginalis cannot be used as a test for therapeutic success or failure. * ML - MAIN LAB ([facility]) . END OF REPORT * ML=Testing performed at Main Lab DEPARTMENT OF PATHOLOGY, [address] [place] [address] Kojo Holley M.D. Director [facility] # [id number] 55 SEE RESULT BELOW Name: MARCOS JOHNSTON : [address]: Paty Newman MD Acct: [id number] Unit: [id number] AGE: 74 Location: [facility] Re01/06/15 SEX: F Status: REG REF SPEC: [id number] JASEN: 01/06/15-[address]: Paty Newman MD REQ: [id number] RECD: 01/06/15 STATUS: COMP _ SOURCE: URINE SPDESC: ORDERED: Urine Culture Procedure Result Verified Site Urine Culture Final 01/08/15- 1032 ML No Growth Day 2 (<1,000 CFU/mL) * ML - MAIN LAB ([facility]) . END OF REPORT * ML=Testing performed at Main Lab DEPARTMENT OF PATHOLOGY, [address] [place] [address] Kojo Holley M.D. Director [facility] # [id number] 56 SEE RESULT BELOW Name: MARCOS JOHNSTON : [address]: Kiersten Gonzalez MD Acct: [id number] Unit: [id number] AGE: 74 Location: [facility] Re12/29/14 SEX: F Status: DEP ER SPEC: [id number] JASEN: 12/29/[address] [facility] [address]: Kiersten Gonzalez MD REQ: [id number] RECD: 12/29/14 STATUS: BARRY HILARIO DR: [facility] Paty Newman MD _ SOURCE: URINE SPDESC: ORDERED: Urine Culture Procedure Result Verified Site Urine Culture Final 12/31/14- 1035 ML Organism 1 NORMAL ANASTACIA Katy Count 10-25,000 (Moderate) CFU/ML * ML - MAIN LAB ([facility]) . END OF REPORT * ML=Testing performed at Main Lab DEPARTMENT OF PATHOLOGY, [address] [place] [address] Kojo Holley M.D. Director [facility] # [id number] 57 Therapeutic target for the treatment of diabetes Mellitus patients is <7% HBA1C, and in selective patients <6.0%.Please refer to [employer] Diabetic care guidelines for further information. 58 SEE RESULT BELOW Name: MARCOS JOHNSTON : [address]: Yulissa Birmingham NP Acct: [id number] Unit: [id number] AGE: 74 Location: [facility] Re12/20/14 SEX: F Status: REG REF SPEC: [id number] JASEN: 12/20/[address]: Yulissa Birmingham NP REQ: [id number] RECD: 12/20/14 STATUS: COMP _ SOURCE: URINE SPDESC: ORDERED: Urine Culture Procedure Result Verified Site Urine Culture Final 12/22/14- 35 ML Organism 1 ESCHERICHIA COLI Katy Count >100,000 (Many) CFU/ML 1. ESCHERICHIA COLI [...] antibiotic reporting. * ML - MAIN LAB ([facility]) . END OF REPORT * ML=Testing performed at Main Lab DEPARTMENT OF PATHOLOGY, [address] [place] [address] Kojo Holley M.D. Director [facility] # [id number] 59 FASTING 60 Because ethnic data is not always readily [...] 15-29 5 Kidney failure <15 (or dialysis) 61 Desirable <150 Borderline high 150-199 High 200-499 Very High >500 62 Desirable <200 Borderline high 200-239 High >239 63 Low <40 Desirable: 40-60 High: >60 64 Desirable <100 Near Optimal 100-129 Borderline high 130-159 High 160-189 Very High >189 65 Normal Range 180 to 914 Indeterminate Range 145 to 180 Deficient Range <145 66 FASTING 67 Because ethnic data is not always readily [...] 15-29 5 Kidney failure <15 (or dialysis) 68 ADDITIONAL INFORMATION Reference range for patients 11 years and older is based on upright A.M. collection from subjects without sodium restrictions. Test Performed by: [facility] - [address] [address] Floor Winder: Earl Maurice M.D. 69 REFERENCE VALUE (Peripheral vein specimen) Na-deplete, upright: Mean: 5.9 Range: 2.9-10.8 Na-replete, upright: Mean: 1.0 Range: <=0.6-3.0 Test Performed by: [facility] - [address] [address] Floor Winder: Earl Maurice M.D. 70 RUN DATE: 11/20/13 [facility] LAB LIVE PAGE 1 RUN TIME: [address] [place] [address] Specimen Inquiry Name: VICKIEMARCOS E : [address]: Lucas Tanner NP Acct: [id number] Unit: [id number] AGE: 73 Location: [facility] Re11/18/13 SEX: F Status: REG REF SPEC: [id number] JASEN: 11/18/13-[address]: Lucas Tanner NP REQ: [id number] RECD: 11/18/13-4525 STATUS: COMP _ SOURCE: URINE SPDESC: ORDERED: Urine Culture QUERIES: [facility] Number [id number] Procedure Result Verified Site Urine Culture Final 11/20/13- 1127 ML Organism 1 ESCHERICHIA COLI Katy Count >100,000 (Many) CFU/ML 1. ESCHERICHIA COLI [...] performed at Main Lab DEPARTMENT OF PATHOLOGY, [address] [place] [address] Kojo Holley M.D. Director [facility] # [id number] 71 Because ethnic data is not always readily [...] 15-29 5 Kidney failure <15 (or dialysis) 72 Because ethnic data is not always readily [...] 15-29 5 Kidney failure <15 (or dialysis) 73 PT IS FASTING 74 Microalbuminuria in a random sample is defined as: Microalbumin/Creatinine ratio of 30-299 ug/mg. 75 Desirable <150 Borderline high 150-199 High 200-499 Very High >500 76 Desirable <200 Borderline high 200-239 High >239 77 Low <40 Desirable: 40-60 High: >60 78 Desirable <100 Near Optimal 100-129 Borderline high 130-159 High 160-189 Very High >189 79 Because ethnic data is not always readily [...] 15-29 5 Kidney failure <15 (or dialysis) 80 Therapeutic target for the treatment of diabetes Mellitus patients is <7% HBA1C, and in selective patients <6.0%.Please refer to [employer] Diabetic care guidelines for further information. 81 HDL Interpretation: Undesirable: High Risk: Less than 40 mg/dL Desirable: Low Risk: Greater than 60 mg/dL 82 LDL Interpretation: Low Risk Optimal Level: LDL Less than 100 mg/dL Near or Above Optimal: LDL 100-129 mg/dL Borderline High Risk: LDL 130-159 mg/dL High Risk: LDL 160-189 mg/dL Very High Risk: LDL Greater than 189 mg/dL 83 Microalbuminuria in a random sample is defined as: Microalbumin/Creatinine ratio of 30-299 ug/mg. 84 RUN DATE: 07/19/12 [facility] LAB LIVE PAGE 1 RUN TIME: 9254 [address] [place], [place] [address] Specimen Inquiry Name: MARCOS JOHNSTON : [address]: Kaylie Ornelas MD Acct: [id number] Unit: [id number] AGE: 72 Location: [facility] Re07/17/12 SEX: F Status: REG REF SPEC: [id number] JASEN: 07/17/12-[address] [facility] [address]: Kaylie Ornelas MD REQ: [id number] RECD: 07/17/12 STATUS: COMP _ SOURCE: URINE SPDESC: ORDERED: Urine Culture QUERIES: [employer] Number [id number] Procedure Result Verified Site Urine Culture Final 07/19/12- 1043 ML Organism 1 NORMAL ANASTACIA Katy Count 1-10,000 (Few) CFU/ML END OF REPORT * ML=Testing performed at Main Lab DEPARTMENT OF PATHOLOGY, [facility] [employer] [place], [place] [address] Kojo Holley M.D. Director [facility] Permit #[id number] 85 Effective 01/30/12, bilirubin confirmation by ictotest is discontinued. False-positive results for bilirubin may occur due to color interference from large amounts of blood in the urine, very concentrated urine, or drugs that discolor urine such as phenazopyridine(Pyridium). 86 RUN DATE: 03/08/12 [facility] LAB LIVE PAGE 1 RUN TIME: 1136 [facility] [employer] [place], [place] [address] Specimen Inquiry Name: MRACOS JOHNSTON : [address]: Trent WOMACK,Gill Ervin Acct: [id number] Unit: [id number] AGE: 72 Location: [facility] Re03/05/12 SEX: F Status: REG REF SPEC: [id number] JASEN: 03/05/12-[address] [facility] [address]: Trent WOMACK, Gill SaucedoMaria C REQ: [id number] RECD: 03/06/12 STATUS: COMP _ SOURCE: URINE SPDESC: ORDERED: Urine Culture QUERIES: [employer] Number [id number] Procedure Result Verified Site Urine Culture Final 03/08/12- 1136 ML Organism 1 NORMAL ANASTACIA Katy Count 10-25,000 (Moderate) CFU/ML END OF REPORT * ML=Testing performed at Main Lab DEPARTMENT OF PATHOLOGY, [address] [place] [address] Kojo Holley M.D. Director [facility] Permit #[id number] 87 New Reference Range and Interpretation effective 12/05/2001 TnI (ng/ml) INTERPRETATION Less Than 0.06 ng/mL NOT SUPPORTIVE OF DIAGNOSIS OF MO 0.06 - 0.50 ng/ml INDETERMINATE: SUGGEST SERIAL STUDIES IF CLINICALLY INDICATED. Greater than 0.5 ng/mL CONSISTENT WITH DIAGNOSIS OF MO . 88 Anion gap measurement may be of limited value in the presence of any alkalosis, especially in a combined acid base disorder. . 89 A metabolite of Naproxen, O-desmethylnaproxen, has been shown to interfere with the Jendrassik-Westwego method for measuring total bilirubin. Samples from patients who have taken Naproxen have shown spurious elevation in total bilirubin levels. 90 Because ethnic data is not always readily [...] 15-29 5 Kidney failure <15 (or dialysis) 91 New Reference Range and Interpretation effective 12/05/2001 TnI (ng/ml) INTERPRETATION Less Than 0.06 ng/mL NOT SUPPORTIVE OF DIAGNOSIS OF MO 0.06 - 0.50 ng/ml INDETERMINATE: SUGGEST SERIAL STUDIES IF CLINICALLY INDICATED. Greater than 0.5 ng/mL CONSISTENT WITH DIAGNOSIS OF MO . 92 RUN DATE: 10/21/11 [facility] NMI LIVE PAGE 1 RUN TIME: 1211 Specimen Inquiry RUN USER: INTERFACE Name: MARCOS JOHNSTON Status: REG REF Re10/19/11 Age/Sex: 71/F Unit#: [id number] Location: [facility].B. : 38 SPEC #: [id number] JASEN: 10/19/11-1455 STATUS: COMP REQ #: [id number] RECD: 10/19/11-[address]: Stephanie Thibodeaux MD SOURCE: URINE ENTR: 10/19/11-[address]: SPDES: ORDERED: URINE C S QUERIES: MEDENT REQUISITION # [id number] SPECIMEN DESCRIPTION: URINE, CLEAN CATCH ACT WKST: UR 10/21/11 #1 Procedure Result Verified Site > URINE CULTURE SENSITIVI Final -1211 ML SCANT NORMAL URETHRAL OR PERINEAL ANASTACIA ML - [facility] State Permit #[id number] [facility] [employer] [place] [address] DEPARTMENT OF PATHOLOGY, [facility] DATES [place] [address] [facility] Permit #[id number] Kojo Holley M.D. Director Charles Alvarez M.D. Gambling Broker 93 CHOLESTEROL INTERPRETATION: Desirable: Less than 200 MG/DL Borderline-High Risk: 200-239 MG/DL High-Risk: 240 MG/DL and over 94 HDL INTERPRETATION: Undesirable: High Risk: Less than 40 MG/DL Desirable: Low Risk: Greater than 60 MG/DL 95 LDL INTERPRETATION: Low Risk Optimal Level: LDL Less than 100 MG/DL Near or Above Optimal: LDL 100-129 MG/DL Borderline High Risk: LDL 130-159 MG/DL High Risk: LDL 160-189 MG/DL Very High Risk: LDL Greater than 189 MG/DL 96 Anion gap measurement may be of limited value in the presence of any alkalosis, especially in a combined acid base disorder. . 97 A metabolite of Naproxen, O-desmethylnaproxen, has been shown to interfere with the Jendrassik-Jose Daniel method for measuring total bilirubin. Samples from patients who have taken Naproxen have shown spurious elevation in total bilirubin levels. 98 Because ethnic data is not always readily [...] 15-29 5 Kidney failure <15 (or dialysis) 99 MICROALBUMINURIA IN A RANDOM SAMPLE IS DEFINED : MICROALBUMIN/CREATININE RATIO OF 30-299 ug/mg. . 100 THERAPEUTIC TARGET FOR THE TREATMENT OF DIABETES MELLITUS PATIENTS IS <7% HBA1C, AND IN SELECTIVE PATIENTS <6.0%. PLEASE REFER TO [employer] DIABETIC CARE GUIDELINES FOR FURTHER INFORMATION. 101 RUN DATE: 08/23/11 [facility] NMI LIVE PAGE 1 RUN TIME: 1037 Specimen Inquiry RUN USER: INTERFACE Name: MARCOS JOHNSTON Status: REG REF Re08/21/11 Age/Sex: 71/F Unit#: [id number] Location: [facility] : 38 SPEC #: [id number] JASEN: 08/21/11 STATUS: COMP REQ #: [id number] RECD: 08/21/[address] [facility] [address]: Trent WOMACK,Paty Ervin SOURCE: URINE ENTR: 08/21/11-[address]: OLGAES: ORDERED: URINE C S QUERIES: MEDENT REQUISITION # [id number] SPECIMEN DESCRIPTION: URINE, RANDOM Procedure Result Verified [...] *These antibiotics are not available in the [facility] Formulary. Contact the Microbiology Department for any additional antibiotic reporting. - [facility] Permit #[id number] [address] [place] [address] DEPARTMENT OF PATHOLOGY, [address] [place] [address] [facility] Permit #[id number] Kojo Holley M.D. Director Charles Alvarez M.D. Gambling Broker 102 RUN DATE: 06/21/11 [facility] NMI LIVE PAGE 1 RUN TIME: 1051 Specimen Inquiry RUN USER: INTERFACE Name: MARCOS JOHNSTON Status: REG REF Re06/19/11 Age/Sex: 71/F Unit#: [id number] Location: [facility] : 38 SPEC #: [id number] JASEN: 06/19/11-1050 STATUS: COMP REQ #: [id number] RECD: 06/19/11-[address]: Yulissa Sellers SOURCE: WOUND ENTR: 06/19/11-[address]: NISSAC: MISC ORDERED: CULT SENS/GS COMMENTS: NO SOURCE SPECIFIED ON REQUISITION QUERIES: MEDENT REQUISITION # [id number] ACT WKST: B 06/21/11 #1 Procedure Result Verified Site > CULTURE SENSITIVITY Final -1051 ML FINAL: NO GROWTH DAY 2 > GRAM STAIN SMEAR Final -0942 ML POLYS NONE SMEAR: NO ORGANISMS SEEN ML - [facility] State Permit #[id number] [address] [place] [address] DEPARTMENT OF PATHOLOGY, [address] [place] [address] [facility] Permit #[id number] Kojo Holley M.D. Director Charles Alvarez M.D. Gambling Broker 103 THERAPEUTIC TARGET FOR THE TREATMENT OF DIABETES MELLITUS PATIENTS IS <7% HBA1C, AND IN SELECTIVE PATIENTS <6.0%. PLEASE REFER TO [employer] DIABETIC CARE GUIDELINES FOR FURTHER INFORMATION. 104 THERAPEUTIC TARGET FOR THE TREATMENT OF DIABETES MELLITUS PATIENTS IS <7% HBA1C, AND IN SELECTIVE PATIENTS <6.0%. PLEASE REFER TO [employer] DIABETIC CARE GUIDELINES FOR FURTHER INFORMATION. 105 Anion gap measurement may be of limited value in the presence of any alkalosis, especially in a combined acid base disorder. . 106 A metabolite of Naproxen, O-desmethylnaproxen, has been shown to interfere with the Jendrassik-Westwego method for measuring total bilirubin. Samples from patients who have taken Naproxen have shown spurious elevation in total bilirubin levels. 107 Because ethnic data is not always readily [...] 15-29 5 Kidney failure <15 (or dialysis) 108 CHOLESTEROL INTERPRETATION: Desirable: Less than 200 MG/DL Borderline-High Risk: 200-239 MG/DL High-Risk: 240 MG/DL and over 109 HDL INTERPRETATION: Undesirable: High Risk: Less than 40 MG/DL Desirable: Low Risk: Greater than 60 MG/DL 110 LDL INTERPRETATION: Low Risk Optimal Level: LDL Less than 100 MG/DL Near or Above Optimal: LDL 100-129 MG/DL Borderline High Risk: LDL 130-159 MG/DL High Risk: LDL 160-189 MG/DL Very High Risk: LDL Greater than 189 MG/DL 111 ----- RUN DATE: 11/20/10 [facility] NMI LIVE PAGE 1 RUN TIME: 1410 Specimen Inquiry RUN USER: INTERFACE -- Name: MARCOS JOHNSTON Accjerrod#: [id number] Status: REG REF Re11/16/10 Age/Sex: 70/F Unit#: [id number] Location: [facility] : 38 -- Specimen: [id number] SOUJerrod Spec Date: 11/16/[address]: Bharat cortés [...] 11/20/10 1407 -- -- DEPARTMENT OF PATHOLOGY, [address] [place] [address] [facility] Permit #[id number] Marquis Lackey M.D. Child And Youth Program Assistant Dir coreen -- 112 Anion gap measurement may be of [...] 5 Kidney failure <15 (or dialysis) 115 Lymphopenia % 116 Anion gap measurement may be of limited value in the presence of any alkalosis, especially in a combined acid base disorder. . 117 A metabolite of Naproxen, O-desmethylnaproxen, has been shown to interfere with the Jendrassik-Westwego method for measuring total bilirubin. Samples from patients who have taken Naproxen have shown spurious elevation in total bilirubin levels. 118 Because ethnic data is not always readily [...] 15-29 5 Kidney failure <15 (or dialysis) 119 MICROALBUMINURIA IN A RANDOM SAMPLE IS DEFINED : MICROALBUMIN/CREATININE RATIO OF 30-299 ug/mg. . 120 THERAPEUTIC TARGET FOR THE TREATMENT OF DIABETES MELLITUS PATIENTS IS <7% HBA1C, AND IN SELECTIVE PATIENTS <6.0%. PLEASE REFER TO [employer] DIABETIC CARE GUIDELINES FOR FURTHER INFORMATION. 121 ----- RUN DATE: 08/14/10 [facility] NMI LIVE PAGE 1 RUN TIME: 1338 Specimen Inquiry RUN USER: INTERFACE -- Name: MARCOS JOHNSTON#: [id number] Status: REG REF Re08/10/10 Age/Sex: 70/F Unit#: [id number] Location: [address] [place] [address].O.B. : 38 -- Specimen: [id number] GEOVANNY Spec Date: 08/10/[address]: Bharat [...] 08/14/10 1338 -- -- DEPARTMENT OF PATHOLOGY, [address] [place] [address] [facility] Permit #[id number] Kojo Holley M.D. Director Charles Alvarez M.D. Child And Youth Program Assistant Dir coreen -- 122 Anion gap measurement may be of limited value in the presence of any alkalosis, especially in a combined acid base disorder. . 123 A metabolite of Naproxen, O-desmethylnaproxen, has been shown to interfere with the Jendrassik-Jose Daniel method for measuring total bilirubin. Samples from patients who have taken Naproxen have shown spurious elevation in total bilirubin levels. 124 Because ethnic data is not always readily [...] 15-29 5 Kidney failure <15 (or dialysis) 125 THERAPEUTIC TARGET FOR THE TREATMENT OF DIABETES MELLITUS PATIENTS IS <7% HBA1C, AND IN SELECTIVE PATIENTS <6.0%. PLEASE REFER TO [employer] DIABETIC CARE GUIDELINES FOR FURTHER INFORMATION. 126 Recommended INR for Patients on Oral Anticoagulants Prophylaxis 2.0 - 3.0 Treatment of thrombosis 2.0 - 3.0 Prevention of embolism 2.0 - 3.0 Prevention of embolism from prosthetic heart valves 2.5 - 3.5 127 DIAGNOSIS,TREATMENT,AND THERAPY MUST BE BASED ON THE INR VALUE ALONE. 128 Anion gap measurement may be of limited value in the presence of any alkalosis, especially in a combined acid base disorder. . 129 A metabolite of Naproxen, O-desmethylnaproxen, has been shown to interfere with the Jendrassik-Westwego method for measuring total bilirubin. Samples from patients who have taken Naproxen have shown spurious elevation in total bilirubin levels. 130 Because ethnic data is not always readily [...] 15-29 5 Kidney failure <15 (or dialysis) 131 INTERPRETATION %CK-MB < 5% NOT SUPPORTIVE OF DIAGNOSIS OF MO 5 - <10% INDETERMINATE; SUGGEST SERIAL STUDIES IF CLINICALLY INDICATED 10% OR > CONSISTENT WITH DIAGNOSIS OF MO . 132 New Reference Range and Interpretation effective 12/05/2001 TnI (ng/ml) INTERPRETATION Less Than 0.06 ng/mL NOT SUPPORTIVE OF DIAGNOSIS OF MO 0.06 - 0.50 ng/ml INDETERMINATE: SUGGEST SERIAL STUDIES IF CLINICALLY INDICATED. Greater than 0.5 ng/mL CONSISTENT WITH DIAGNOSIS OF MO . 133 THERAPEUTIC TARGET FOR THE TREATMENT OF DIABETES MELLITUS PATIENTS IS <7% HBA1C, AND IN SELECTIVE PATIENTS <6.0%. PLEASE REFER TO [employer] DIABETIC CARE GUIDELINES FOR FURTHER INFORMATION. 134 THERAPEUTIC TARGET FOR THE TREATMENT OF DIABETES MELLITUS PATIENTS IS <7% HBA1C, AND IN SELECTIVE PATIENTS <6.0%. PLEASE REFER TO [employer] DIABETIC CARE GUIDELINES FOR FURTHER INFORMATION. 135 CHOLESTEROL INTERPRETATION: Desirable: Less than 200 MG/DL Borderline-High Risk: 200-239 MG/DL High-Risk: 240 MG/DL and over 136 HDL INTERPRETATION: Undesirable: High Risk: Less than 40 MG/DL Desirable: Low Risk: Greater than 60 MG/DL 137 LDL INTERPRETATION: Low Risk Optimal Level: LDL Less than 100 MG/DL Near or Above Optimal: LDL 100-129 MG/DL Borderline High Risk: LDL 130-159 MG/DL High Risk: LDL 160-189 MG/DL Very High Risk: LDL Greater than 189 MG/DL 138 Anion gap measurement may be of limited value in the presence of any alkalosis, especially in a combined acid base disorder. . 139 Note change in reference range as of 10/23/07. The change was based on recommendations from the [place] [employer]. 140 A metabolite of Naproxen, O-desmethylnaproxen, has been shown to interfere with the Jendrassik-Jose Daniel method for measuring total bilirubin. Samples from patients who have taken Naproxen have shown spurious elevation in total bilirubin levels. 141 Because ethnic data is not always readily [...] 15-29 5 Kidney failure <15 (or dialysis) 142 THERAPEUTIC TARGET FOR THE TREATMENT OF DIABETES MELLITUS PATIENTS IS <7% HBA1C, AND IN SELECTIVE PATIENTS <6.0%. PLEASE REFER TO [employer] DIABETIC CARE GUIDELINES FOR FURTHER INFORMATION. 143 MICROALBUMINURIA IN A RANDOM SAMPLE IS DEFINED : MICROALBUMIN/CREATININE RATIO OF 30-299 ug/mg. . 144 Anion gap measurement may be of limited value in the presence of any alkalosis, especially in a combined acid base disorder. . 145 Note change in reference range as of 10/23/07. The change was based on recommendations from the [employer]. 146 Please note change in reference range effective 07 . 147 A metabolite of Naproxen, O-desmethylnaproxen, has been shown to interfere with the Jendrassik-Jose Daniel method for measuring total bilirubin. Samples from patients who have taken Naproxen have shown spurious elevation in total bilirubin levels. 148 Because ethnic data is not always readily [...] 15-29 5 Kidney failure <15 (or dialysis) Procedures Date CPT Code Description Status Comment 02/19/2017 16814 Ligation Or Biopsy Temporal Completed Artery 01/17/201731367 Inject/Drain Joint/Bursa Major Completed 11/12/2016 Diabetic Foot Exam Completed 11/06/201674355 Inject/Drain Joint/Bursa Major Completed 03/13/2016 Bone Mineral Density Test Completed 03/08/201687288 Inject/Drain Joint/Bursa Small Completed 02/14/2016 Mammogram Completed 11/21/2015 Diabetic Retinal Eye Exam Completed Document: 02/15/16 - Rec.Release-DR Mart Perez 10/13/2015 45806 Inject/Drain Joint/Bursa Small Completed 08/19/2015 Colonoscopy Completed 08/11/2015 57657 EKG Tracing & Completed Interpretation 04/21/2015 83850 Inject/Drain Joint/Bursa Small Completed 02/09/2015 Mammogram Completed 10/25/2014 63449 Inject/Drain Joint/Bursa Small Completed 02/04/2014 Mammogram Completed 07/08/2013 86121 EKG Tracing & Completed Interpretation 05/29/2013 Diabetic Retinal Eye Exam Completed 05/06/2013 Diabetic Retinal Eye Exam Completed 01/21/2013 Mammogram Completed 01/17/2012 Mammogram Completed 12/14/2011 Diabetic Retinal Eye Exam Completed 10/30/2011 27448 EKG Tracing & Completed Interpretation 07/23/2011 Diabetic Foot Exam Completed 07/05/2011 24804 EKG Tracing & Completed Interpretation 05/09/2011 Diabetic Foot Exam Completed 01/15/2011 Mammogram Completed 08/10/2010 Colonoscopy Completed 04/11/2010 Bone Mineral Density Test Completed 02/06/2010 00624 EKG Tracing & Completed Interpretation 01/13/2010 Mammogram Completed 10/11/2008 56755 EKG Tracing & Completed Interpretation 01/08/2008 Mammogram Completed 07/09/2007 Mammogram Completed 03/31/2007 26794 EKG Tracing & Completed Interpretation 03/31/2007 67545 EKG Tracing & Completed Interpretation Encounters Type Date Location Provider CPT E/M Dx Office Visit 06/24/2017 [facility] Internal Medicine Yulissa [place] N.[place] 56153 L03.031 2:20p - Teri Office Visit 06/10/2017 [facility] Internal Medicine Paty Newman 65064 J06.9 10:40a - Teri Cho Office Visit 05/01/2017 [facility] Heron Barth M.D. 85761 M35.3 10:20a [facility] Z79.52 M54.2 M54.9 Office Visit 04/25/2017 1:00p [facility] Internal Medicine Paty Newman 51316 G47.00 - Teri Cho F41.9 Office Visit 03/21/2017 11:00a [facility] Of Heron Barth 78818 M35.3 Nely Cho Z79.1 Z79.52 Office Visit 02/15/2017 1:40p [facility] Of Heron Barth 77440 M35.3 Nely Cho G50.1 Office Visit 01/29/2017 10:20a [facility] Of Heron Barth 65390 M35.3 Nely Cho M54.9 Z79.1 R74.8 Office Visit 12/13/2016 1:45p [facility] [address] M75.41 C.M.A. M75.42 Office Visit 12/12/2016 9:00a [facility] Of Heron Barth, 16356 M35.3 Winemaker M.DMaria C M54.2 M25.512 Office Visit 11/06/2016 1:00p [facility] [address] M25.511 C.M.A. M75.41 Office Visit 10/19/2016 8:40a [facility] Internal Paty Newman 17030 M25.511 Medicine - [place] Marquis F43.20 Office Visit 10/09/2016 11:40a [facility] Internal Paty Newman 44791 M79.669 Medicine - [place] Lewis.Kaitlyn Office Visit 08/28/2016 8:40a [facility] Internal Paty Newman 83375 M54.9 Medicine - [place] M.D. I10 Office Visit 08/13/2016 8:40a [facility] Internal Medicine Paty Newman 29870 M54.5 - Teri Cho M25.551 Office Visit 08/06/2016 2:00p Neurosurgery Services Chrystal Marques PA-C 61936 M54.5 [facility] Office Visit 08/03/2016 11:40a [facility] Internal Medicine Yulissa [place], N.P. 68682 M54.5 - [place] Office Visit 07/16/2016 3:45p Neurosurgery Services Chrystal Marques PA-C 55650 M54.16 Of [facility] Office Visit 07/04/2016 10:20a [facility] Internal Medicine Yulissa [place], N.P. 47030 M54.5 - [place] Office Visit 02/13/2016 10:40a [facility] Internal Medicine Paty Newman 06311 Z00.00 - Teri Cho K21.9 I10 M15.2 H91.93 F41.9 N95.1 Office Visit 08/11/2015 10:20a [facility] Internal Medicine Paty Newman M.D. 59054 I10 - [place] K22.4 Office Visit 02/10/2015 1:40p [facility] Internal Medicine Paty Newman 73029 Z00.00 - Teri Cho E11.9 I10 K21.9 N77.1 Office Visit 01/06/2015 1:00p [facility] Internal Medicine Paty Newman 61552 N39.0 - [place] M.Kaitlyn N77.1 Office Visit 12/20/2014 10:20a [facility] Internal Medicine Yulissa [place], N.P. 79634 N77.1 - [place] N39.0 Office Visit 12/15/2014 1:20p [facility] Internal Medicine Yulissa [place], N.P. 34789 N39.0 - [place] N77.1 Office Visit 10/25/2014 11:30a Orthopedic Services Meg Brockach, 33439 715.14 Of Kelli Cho Office Visit 10/04/2014 1:20p [facility] Internal Medicine Paty Newman 36032 401.1 - [place] M.DMaria C 530.89 716.84 716.94 Office Visit 05/11/2014 11:00a [facility] Internal Medicine Paty Newman 33485 401.1 - [place] Marquis 388.70 Office Visit 02/08/2014 9:00a [facility] Internal Medicine Paty Newman 15450 V70.0 - [place] M.Kaitlyn 401.1 530.81 244.9 787.91 250.00 V03.82 Office Visit 01/14/2014 10:00a [facility] [place] [address] 720.2 - [place] Office Visit 11/18/2013 10:30a [facility] [place] [address] 788.1 - [place] Office Visit 10/23/2013 1:00p [facility] Internal Medicine Paty Newman 54075 V72.84 - [place] M.DMaria C 371.70 250.00 401.1 Office Visit 07/08/2013 11:20a [facility] Internal Medicine Paty Newman 60562 V72.84 - [place] M.DMaria C 371.70 401.1 250.00 Office Visit 06/04/2013 10:40a [facility] Internal Medicine Paty Newman 19868 401.1 - [place] MMaria CDMaria C 272.4 Office Visit 03/24/2013 10:40a [facility] Internal Medicine Paty Newman 04640 455.6 - [place] M.D. Office Visit 02/03/2013 11:00a [facility] Internal Medicine Paty Trent, 86706 V70.0 - [place] M.D. 401.1 244.9 787.91 Office Visit 10/29/2012 2:20p [facility] Internal Medicine Yulissa [place], N.P. 28044 112.3 - [place] Office Visit 09/29/2012 9:00a [facility] Internal Medicine Paty Trent, 17841 250.00 - [place] M.D. 787.91 Office Visit 08/14/2012 11:40a [facility] Internal Medicine Paty Trent 92683 250.00 - [place] M.D. 599.0 Office Visit 07/17/2012 4:00p [facility] Internal Medicine Kaylie Ornelas M.D., 00324 788.1 - [place] FACP Office Visit 04/28/2012 2:00p [facility] Internal Medicine Paty Trent 62505 250.00 - [place] M.D. Office Visit 03/20/2012 9:40a [facility] Internal Medicine Paty Trent, 04736 250.00 - [place] M.D. 530.81 Office Visit 03/07/2012 2:00p [facility] Internal Medicine Yulissa [place], N.P. 98453 627.3 - [place] Office Visit 02/15/2012 10:40a [facility] Internal Medicine Paty Trent 76831 250.00 - [place] M.D. 530.81 Office Visit 01/14/2012 9:40a [facility] Internal Medicine Paty Trent 02642 250.00 - [place] M.D. 401.1 272.4 786.50 Office Visit 10/30/2011 2:20p [facility] Internal Medicine Paty Trent 22233 786.50 - [place] M.D. V04.81 Office Visit 10/11/2011 11:20a [facility] Internal Medicine Paty Trent 72958 250.00 - [place] M.D. 401.1 272.4 Office Visit 09/19/2011 10:20a [facility] Internal Medicine Yulissa [place], N.P. 28112 112.1 - [place] Office Visit 08/21/2011 8:40a [facility] Internal Medicine Paty Cotton, 51146 599.0 - [place] M.D. Office Visit 07/05/2011 1:40p [facility] Internal Medicine Paty Cotton, 37467 V70.0 - [place] M.D. 250.00 401.1 244.9 V76.10 V72.31 Office Visit 06/19/2011 9:20a [facility] Internal Medicine Yulissa [place], N.P. 83951 680.8 - [place] Office Visit 04/17/2011 3:20p [facility] Internal Medicine Paty Cotton, 44646 250.00 - [place] M.D. 401.1 272.4 780.52 Office Visit 01/18/2011 10:40a DO Not Use Paty Cotton, 83386 250.00 [facility] M.D. 401.1 272.4 Office Visit 10/26/2010 8:20a DO Not Use Paty Cotton, 73805 789.01 [place] M.D. 250.00 276.8 Office Visit 10/16/2010 10:20a DO Not Use Paty Cotton, 51303 789.00 [place] M.D. Office Visit 09/25/2010 10:20a DO Not Use Yulissa Varn, 25481 530.81 [facility] N.P. Office Visit 08/04/2010 11:20a DO Not Use Paty Cotton, 88304 250.00 [place] M.D. 401.1 Office Visit 06/29/2010 1:30p DO Not Use Paty Cotton, 17328 250.00 [place] M.D. 401.1 272.4 Office Visit 04/18/2010 2:15p DO Not Use Paty Cotton, 34122 786.50 [place] M.D. 250.00 401.1 Office Visit 02/06/2010 3:45p DO Not Use Kaylie Ornelas M.D., 25878 786.50 [place] FACP Office Visit 12/20/2009 2:00p DO Not Use Paty Cotton, 74383 250.02 [place] M.D. 401.1 272.0 Office Visit 09/16/2009 1:30p DO Not Use Paty Cotton, 43717 250.00 [place] M.D. Office Visit 07/05/2009 11:30a DO Not Use Paty Cotton, 84585 250.02 [place] M.D. 401.1 Office Visit 05/13/2009 11:00a DO Not Use Alyce Shea, 68969 250.02 [place] M.D. 401.1 Office Visit 04/05/2009 9:45a DO Not Use Yulissa [place], 80049 786.52 [facility] N.P. Office Visit 01/11/2009 11:00a DO Not Use Alyce Shea, 98781 729.5 [place] M.D. 250.00 401.1 272.0 Office Visit 12/17/2008 11:45a DO Not Use [facility] Kaylie Ornelas M.D., 02724 477.9 FACP Office Visit 11/22/2008 2:30p DO Not Use [facility] Yulissa [place], 63141 724.1 N.P. 845.00 Office Visit 10/11/2008 3:15p DO Not Use Alyce Shea, 82640 V70.0 [place] M.D. 250.00 272.0 585.9 401.1 Office Visit 07/12/2008 9:15a DO Not Use Alyce Shea, 69573 250.00 [place] M.D. 401.1 Office Visit 05/26/2008 10:15a DO Not Use Alyce Shea, 53140 250.02 [place] M.D. Office Visit 04/14/2008 9:00a DO Not Use Alyce Shea 55083 250.02 [place] M.D. 272.0 401.1 Office Visit 01/23/2008 1:00p DO Not Use [facility] Kaylie Ornelas 05314 784.2 M.D., FACP Office Visit 01/14/2008 9:00a DO Not Use [facility] Alyce Shea 51304 250.02 M.D. 272.0 401.1 Office Visit 01/02/2008 1:15p DO Not Use Yulissa Varn, 73976 564.00 [facility] N.P. Office Visit 09/30/2007 10:45a DO Not Use Yulissa Varn, 68437 752.41 [facility] N.P. Office Visit 09/02/2007 9:15a DO Not Use RadomskiHortensiaa, 89964 V72.31 [place] M.D. 250.00 272.0 401.1 Office Visit 06/11/2007 1:30p DO Not Use Radomski, Alyce, 31497 530.5 [place] M.D. 250.00 401.1 Office Visit 04/23/2007 4:15p DO Not Use Radomski, Alyce, 13290 250.00 [place] M.D. 530.5 Office Visit 03/31/2007 11:45a DO Not Use Radomski Alyce, 52246 786.50 [place] M.D. Office Visit 03/06/2007 3:00p DO Not Use Radomski, Alyce, 84858 250.00 [place] M.D. 401.1 Office Visit 02/04/2007 3:30p DO Not Use RadomsHortensia diaza, 25720 244.9 [place] M.D. 266.2 250.00 401.1 Plan of Care Future Appointment(s):08/05/2017 9:00 am - Heron Barth M.D. at [facility]08/16/2017 2:20 pm - Paty Newman M.D. at [facility] Internal Medicine [facility]07/16/2017 - Paty Newman M.D.M54.9 Dorsalgia, unspecifiedComments:I will let Dr. Barth know.You will be due for blood tests in 10 days I would do PT if the PMR labs are normal
--- NOTE | 2017-07-30 10:49 | UC ---
Skin Complaint HPI - HPI Summary HPI Summary: Patient noticed a small bruise (dime size) on her left forearm 2 days ago. patient is concerned that she may have a tick bite---never seen a tick - History of Current Complaint Chief Complaint: UCWounds Time Seen by Provider: 07/30/17 10:36 Stated Complaint: TICK BITE Hx Obtained From: Patient ?: No Onset/Duration: Sudden Onset, Lasting Days - 2, Still Present Timing: Constant Current Severity: None Location: Discrete Aggravating Factor(s): Nothing Alleviating Factor(s): Nothing Associated Signs & Symptoms: Positive: Negative - Allergy/Home Medications Allergies/Adverse Reactions: Allergies Allergy/AdvReac Type Severity Reaction Status Date / Time glipizide Allergy Unknown Verified 07/30/17 10:40 Reaction Details Iodinated Contrast- Oral and Allergy Anaphylatic Verified 07/30/17 10:40 IV Dye Shock pantoprazole Allergy Unknown Verified 07/30/17 10:40 Reaction Details pneumococcal vaccine Allergy Unknown Verified 07/30/17 10:47 Reaction Details Sulfa (Sulfonamide Allergy See Comment Verified 07/30/17 10:40 Antibiotics) terconazole Allergy Rash Verified 07/30/17 10:40 metformin AdvReac Diarrhea Verified 07/30/17 10:40 Home Medications: Home Medications Amlodipine Besylate [Norvasc 2.5 mg tab] 1 tab PO DAILY 07/30/17 [History Confirmed 07/30/17] Cyanocobalamin TAB* [Vitamin B12 TAB*] 1 tab PO DAILY 07/30/17 [History Confirmed 07/30/17] Etodolac 200 mg PO BID 07/30/17 [History Confirmed 07/30/17] Insulin Aspart [Novolog Flexpen] units SUBCUT DAILY WITH MEAL 07/30/17 [History] L.acidoph,Paracasei, B.lactis [Probiotic] 1 tab PO DAILY 07/30/17 [History Confirmed 07/30/17] predniSONE TAB* [Deltasone TAB*] 7.5 mg PO DAILY 07/30/17 [History Confirmed ] Review of Systems Constitutional: Negative Skin: Bruising - dime size bruise left forearm Eyes: Negative ENT: Negative Respiratory: Negative Cardiovascular: Negative Gastrointestinal: Negative Genitourinary: Negative Motor: Negative Neurovascular: Negative Musculoskeletal: Negative Neurological: Negative Psychological: Negative Is Patient Immunocompromised?: No All Other Systems Reviewed And Are Negative: Yes PMH/Surg Hx/FS Hx/Imm Hx Previously Healthy: No Endocrine History: Diabetes Cardiovascular History: Hypertension GI/ History: Gastroesophageal Reflux - Surgical History Surgical History: Yes Surgery Procedure, Year, and Place: HYSTERECTOMY 1988 ;. cholecystectomy ;. OVARIAN CYSY 1968 ;. BILATERAL CATARACTS PRIOR TO TRANSPLANTS ;. 2 CORNEAL TRANSPLANTS 2013-[place] PER DR DESHPANDE ; - Family History Known Family History: Negative: Blood Disorder - NO FAM H/O DVT - Social History Occupation: Retired Lives: With Family Alcohol Use: None Substance Use Type: None Smoking Status (MU): Never Smoked Tobacco Physical Exam Triage Information Reviewed: Yes Appearance: Well-Appearing, No Pain Distress, Well-Nourished Vital Signs Reviewed: Yes Eye Exam: Normal Eyes: Positive: Conjunctiva Clear ENT Exam: Normal ENT: Positive: Normal ENT inspection, Hearing grossly normal, Pharynx normal. Negative: Nasal congestion, Trismus, Muffled voice, Hoarse voice Dental Exam: Normal Neck exam: Normal Neck: Positive: Supple, Nontender Respiratory Exam: Normal Respiratory: Positive: Chest non-tender, No respiratory distress, No accessory muscle use Cardiovascular Exam: Normal Cardiovascular: Positive: RRR, Pulses Normal, Brisk Capillary Refill Musculoskeletal Exam: Normal Musculoskeletal: Positive: Strength Intact, ROM Intact, No Edema Neurological Exam: Normal Neurological: Positive: Alert, Muscle Tone Normal Psychological Exam: Normal Skin Exam: Normal Skin: Positive: Other - bruise on left forearm with small scab Course/Dx - Course Course Of Treatment: mild soap and water wash ---area shows no evidence of a tick, observe for signs /symptoms and do daily tick chescks for safety follow with pcp prn - Diagnoses Provider Diagnoses: contusion left forearm, hypertension in poor control, lyme/ tick education-primary prevention Discharge - Sign-Out/Discharge Documenting (check all that apply): Discharge/Admit/Transfer - Discharge Plan Condition: Stable Disposition: HOME Patient Education Materials: Tick Bite (ED), Contusion in Adults (ED), Hypertension (ED) Referrals: Paty Newman MD [Primary Care Provider] - 2 Weeks - Billing Disposition and Condition Condition: STABLE Disposition: HOME
[2017-07-30 10:51] VITALS: BP 149/82
== END 2017-07-30 11:12 | disposition home or self-care (01) ==
LOC: UCEAST 10:19
DX: S50.12XA Contusion of left forearm, initial encounter (principal); X58.XXXA Exposure to other specified factors, initial encounter; Y93.9 Activity, unspecified; Y92.9 Unspecified place or not applicable; I10 Essential (primary) hypertension; Z88.2 Allergy status to sulfonamides; Z88.7 Allergy status to serum and vaccine; Z88.8 Allergy status to other drugs, medicaments and biological substances; Z91.041 Radiographic dye allergy status
CPT/HCPCS: 99211; G0463

== ENCOUNTER 2018-07-01 07:11 | Emergency (ER) | payer MEDICARE ==
[2018-07-01] MEDS ORDERED: diPHENhydraMINE PO* 25 MG PO ONE (07:25)
[2018-07-01] MEDS ORDERED: predniSONE TAB* 20 MG PO ONE (07:28)
--- NOTE | 2018-07-01 07:36 | UC ---
UC General HPI - HPI Summary HPI Summary: Patient brought in by for facial flushing and throat scratchy. Two days ago, felt her face getting red and flushed. Symptoms more prominent starting yesterday afternoon with facial redness, flushing. No itching. Around 4 :20 AM throat was scratchy and face more flushing and burning. [place] 'funny' under her tongue. No N/V or abdominal pain/cramps. No cough or wheeze. Has a chronic cough but nothing new. States she has been on prednisone for the past 18 months and is weaning down and is down to 3 mg over the past 3-4 weeks. Recently increased her LIsinopril to 20 mg on 06/17 and amlodipine to 10 mg on as well. Meds: reviewed - History of Current Complaint Chief Complaint: UCAllergicReaction Stated Complaint: REACTION Time Seen by Provider: 07/01/18 07:16 Pain Intensity: 5 - Allergy/Home Medications Allergies/Adverse Reactions: Allergies Allergy/AdvReac Type Severity Reaction Status Date / Time MARILYNN Inhibitors Allergy Intermediate Swelling Verified 07/01/18 08:50 Of Face,Lips,& Throat glipizide Allergy Unknown Verified 07/01/18 07:18 Reaction Details Iodinated Contrast- Oral and Allergy Anaphylatic Verified 07/01/18 07:18 IV Dye Shock pantoprazole Allergy Unknown Verified 07/01/18 07:18 Reaction Details pneumococcal vaccine Allergy Unknown Verified 07/01/18 07:18 Reaction Details Sulfa (Sulfonamide Allergy See Comment Verified 07/01/18 07:18 Antibiotics) terconazole Allergy Rash Verified 07/01/18 07:18 metformin AdvReac Diarrhea Verified 07/01/18 07:18 PMH/Surg Hx/FS Hx/Imm Hx Previously Healthy: Yes Endocrine History: Diabetes Cardiovascular History: Hypertension - Surgical History Surgical History: Yes Surgery Procedure, Year, and Place: HYSTERECTOMY 1988 ;. cholecystectomy ;. OVARIAN CYSY 1968 ;. BILATERAL CATARACTS PRIOR TO TRANSPLANTS ;. 2 CORNEAL TRANSPLANTS 2013-[place] PER DR DESHPANDE ; - Family History Known Family History: Negative: Blood Disorder - NO FAM H/O DVT - Social History Alcohol Use: None Substance Use Type: None Smoking Status (MU): Never Smoked Tobacco Review of Systems All Other Systems Reviewed And Are Negative: Yes Constitutional: Positive: Negative ENT: Positive: Sore Throat Respiratory: Positive: Negative Physical Exam Triage Information Reviewed: Yes Appearance: Well-Appearing Vital Signs: Initial Vital Signs Temp 97.7 F 07/01/18 07:12 Pulse 93 07/01/18 07:12 Resp 18 07/01/18 07:12 BP 175/82 07/01/18 07:12 Pulse Ox 97 07/01/18 07:12 Vital Signs Reviewed: Yes Eyes: Positive: Conjunctiva Clear ENT: Positive: Normal ENT inspection, Pharynx normal Neck: Positive: Supple, Nontender Respiratory: Positive: Lungs clear, Normal breath sounds Cardiovascular: Positive: RRR, No Murmur Skin: Positive: Other - facial flushing diffusely erythematous Course/Dx - Course Course Of Treatment: This is an 78 yr old with facial flushing and scratchy throat Assessment Concerning for angioedema related to recent increase in Lisinopril Prednisone 40 mg x 1 and Benadryl 50 mg given in UC - throat symptoms resolved Face no longer burning. H/A: resolved Monitored for several hours > 2 hours with near complete resolution of symptoms - facial flushing significantly improving. Plan DISCONTINUE LISINOPRIL - LIsinopril and MARILYNN Inhibitors are now considered an allergy for you Continue Prednisone 40 mg x 6 days, (total of 7 days - start tomorrow as you received your first dose in urgent care today) follow up with Dr. Barth regarding tapering back down Zyrtec 10 mg daily Epi pen as needed for anaphylaxis symptoms Follow up with PCP regarding new allergy and alternative BP medication COntinue benadryl as needed for rash as directed If any tongue swelling, throat swelling, with flushing, cough, wheeze, shortness of breath and/or abdominal cramping - go to the ER - Diagnoses Provider Diagnosis: Angioedema Discharge - Sign-Out/Discharge Documenting (check all that apply): Patient Departure All imaging exams completed and their final reports reviewed: No Studies - Discharge Plan Condition: Fair Disposition: HOME Prescriptions: EPINEPHrine [Epipen 2-Otis] 0.3 mg IM ONCE PRN #1 inj PRN Reason: throat swelling predniSONE [Deltasone 20 MG TAB] 40 mg PO DAILY #12 tablet Patient Education Materials: Angioedema (ED) Referrals: Paty Newman MD [Primary Care Provider] - Additional Instructions: DISCONTINUE LISINOPRIL - LIsinopril and MARILYNN Inhibitors are now considered an allergy for you Continue Prednisone 40 mg x 6 days, (total of 7 days - start tomorrow as you received your first dose in urgent care today) follow up with Dr. Barth regarding tapering back down Zyrtec 10 mg daily Epi pen as needed for anaphylaxis symptoms Follow up with PCP regarding new allergy and alternative BP medication COntinue benadryl as needed for rash as directed If any tongue swelling, throat swelling, with flushing, cough, wheeze, shortness of breath and/or abdominal cramping - go to the ER - Billing Disposition and Condition Condition: FAIR Disposition: Home
[2018-07-01 09:51] VITALS: BP 151/76
== END 2018-07-01 09:45 | disposition home or self-care (01) ==
LOC: UCEAST 07:11
DX: T78.3XXA Angioneurotic edema, initial encounter (principal); R23.2 Flushing; R07.0 Pain in throat; E11.9 Type 2 diabetes mellitus without complications; I10 Essential (primary) hypertension; Z94.7 Corneal transplant status; Z88.2 Allergy status to sulfonamides; Z88.7 Allergy status to serum and vaccine; Z88.8 Allergy status to other drugs, medicaments and biological substances; Z91.041 Radiographic dye allergy status
CPT/HCPCS: 99212; A9270-GY; G0463; J7512

== ENCOUNTER 2018-07-13 09:14 | Emergency (ER) | payer MEDICARE ==
[2018-07-13 09:25] VITALS: BP 142/74
--- NOTE | 2018-07-13 09:41 | UC ---
Throat Pain/Nasal [place] HPI - HPI Summary HPI Summary: Patient presents to urgent care with 3 days of head congestion sore throat postnasal drip and cough. Patient states she Took cough medicine yesterday and that seemed to help. Patient's was diagnosed with a lung infection this week and is on antibiotics. Patient denies fevers or chills. Patient states she does have fatigue. No body aches. Patient is on prednisone for PMR. Patient has not taken any medications today. Medications reviewed this visit. - History of Current Complaint Chief Complaint: UCGeneralIllness Stated Complaint: CHEST CONGEST Time Seen by Provider: 07/13/18 09:31 Hx Obtained From: Patient Onset/Duration: Gradual Onset Severity: Moderate Pain Intensity: 6 Pain Scale Used: 0-10 Numeric Cough: Nonproductive - Allergies/Home Medications Allergies/Adverse Reactions: Allergies Allergy/AdvReac Type Severity Reaction Status Date / Time MARILYNN Inhibitors Allergy Intermediate Swelling Verified 07/13/18 09:30 Of Face,Lips,& Throat glipizide Allergy Unknown Verified 07/13/18 09:30 Reaction Details Iodinated Contrast- Oral and Allergy Anaphylatic Verified 07/13/18 09:30 IV Dye Shock lisinopril Allergy Swelling Verified 07/13/18 09:30 Of Face,Lips,& Throat pantoprazole Allergy Unknown Verified 07/13/18 09:30 Reaction Details pneumococcal vaccine Allergy Unknown Verified 07/13/18 09:30 Reaction Details Sulfa (Sulfonamide Allergy See Comment Verified 07/13/18 09:30 Antibiotics) terconazole Allergy Rash Verified 07/13/18 09:30 metformin AdvReac Diarrhea Verified 07/13/18 09:30 PMH/Surg Hx/FS Hx/Imm Hx Previously Healthy: No - PMR on Prednisone Endocrine History: Diabetes - P Cardiovascular History: Hypertension - Surgical History Surgical History: Yes Surgery Procedure, Year, and Place: HYSTERECTOMY 1988 ;. cholecystectomy ;. OVARIAN CYSY 1968 ;. BILATERAL CATARACTS PRIOR TO TRANSPLANTS ;. 2 CORNEAL TRANSPLANTS 2013-[place] PER DR DESHPANDE ; - Family History Known Family History: Positive: Non-Contributory Negative: Blood Disorder - NO FAM H/O DVT - Social History Alcohol Use: None Substance Use Type: None Smoking Status (MU): Never Smoked Tobacco Review of Systems All Other Systems Reviewed And Are Negative: Yes Constitutional: Positive: Fatigue ENT: Positive: Sore Throat, Nasal Discharge, Sinus Congestion Respiratory: Positive: Cough - yesterday Physical Exam - Summary Physical Exam Summary: Vital Signs Reviewed: Yes A+Ox3, no distress Eyes: Conjunctiva Clear, BRODERICK. EOM intact and full ENT: Hearing grossly normal TM obscurred by cerumen b/l turbinates inflammed, boggy, + thick yellowPND, mmoist, uvula midline, no exudate, + diffuse erythema posterior pharynx Neck: Positive: Supple Respiratory: Positive: No respiratory distress, No accessory muscle use + CTA throughout no w/r Cardiovascular: RRR nl s1, s2 no m/r CBT <2 sec abd soft + BS nt/nd no guarding, no distension Musculoskeletal Exam: BENAVIDES x 4 without difficulty Strength Intact, ROM Intact Neurological: Positive: Alert, + sensation throughout Psychological: Positive: Normal Response To Family Skin: Positive: no rash, no ecchymosis Triage Information Reviewed: Yes Vital Signs: Initial Vital Signs Temp 97.2 F 07/13/18 09:20 Pulse 87 07/13/18 09:20 Resp 20 07/13/18 09:20 BP 142/74 07/13/18 09:20 Pulse Ox 97 07/13/18 09:20 Re-Evaluation - Re-Evaluation First Eval Comment: most cerumen removed with irrigation of left, limited on right - pt did not tolerate irrigation on left. no erythema or fluid b.l TM. strep neg. d/w pt - suspect may be viral however pt with thick progressive secretions. PT is immunocompromised. on abx Will send Rx Amox - can start tomorrow if still sx or worse. will send diflucan prn yeast - pt has used in past. return precautions. f/u with pcp Throat Pain/Nasal Course/Dx - Course Course Of Treatment: Patient presents to urgent care reporting progressive sore throat sinus congestion postnasal drip and nonproductive cough. Patient's was diagnosed with a respiratory infection on antibiotics this week. Patient states she just feels terrible like she needs help getting better. Patient vital signs revealed mildly elevated blood pressure. Patient with a history of same. Patient exam unable to visualize tympanic membranes due to cerumen. Patient with thick yellow green secretions postnasal drip and erythema of oropharynx. We'll irrigate her ears reassess. We'll check a strep. - Differential Dx/Diagnosis Provider Diagnosis: Cerumen impaction, Rhinosinusitis Discharge - Sign-Out/Discharge Documenting (check all that apply): Patient Departure All imaging exams completed and their final reports reviewed: No Studies - Discharge Plan Condition: Stable Disposition: HOME Patient Education Materials: Pharyngitis (ED), Cerumen Impaction (ED), Rhinosinusitis (ED) Referrals: Paty Newman MD [Primary Care Provider] - Additional Instructions: - Stay well hydrated. Drink plenty of non-alcoholic, non-caffinated beverages. - Alternate ibuprofen (Advil, Motrin) 600mg and Tylenol every 3 hours for pain or fever. Take with food. Do NOT take for more than 4-5 days. - These infections are spread by secretions - do NOT share eating or drinking utensils - clean items you share with other people such as cell phones, computer mouse, TV remote, computer tablets,etc. Once you have been antibiotics for 2 days, change your toothbrush and your pillowcase. - get plenty of restful sleep - humidify the air in the room where you sleep - boil water, run a hot steam shower, vaporizer, cups of water by heat register - okay to use over the counter debrox to treat ear wax - a prescription for antibiotics has been sent to your pharmacy. If your symptoms persist, you develop fevers or have other concerns it is recommended you fill the prescription - contact your doctor or return with questions or concerns - Billing Disposition and Condition Condition: STABLE Disposition: Home
== END 2018-07-13 10:35 | disposition home or self-care (01) ==
LOC: UCEAST 09:14
DX: H61.23 Impacted cerumen, bilateral (principal); J32.9 Chronic sinusitis, unspecified; R53.83 Other fatigue; I10 Essential (primary) hypertension; E11.9 Type 2 diabetes mellitus without complications; Z88.2 Allergy status to sulfonamides; Z88.7 Allergy status to serum and vaccine; Z88.8 Allergy status to other drugs, medicaments and biological substances; Z91.041 Radiographic dye allergy status
CPT/HCPCS: 87651; 99213; G0463

== ENCOUNTER 2018-07-15 07:23 | Emergency (ER) | payer MEDICARE ==
[2018-07-15 07:55] LABS: Influenza A Molecular POSITIVE (Negative)
--- NOTE | 2018-07-15 07:55 | ED ---
Influenza-Like Illness - HPI Summary HPI Summary: Pt is an 78 y/o F presenting to the ED with a chief complaint of a flu-like illness. She initially experienced symptoms on 07/10/18. She states she went to [facility] two days ago for the same symptoms because her was diagnosed with the flu and her sx were worsening. She currently reports sore throat, cough, SPEARS, bodyaches, shaking, diaphoresis, fever, and chills. She was given abx and Tamiflu, and has only taken one Tamiflu last night. - History of Current Complaint Chief Complaint: EDFluSymptoms Time Seen by Provider: 07/15/18 07:30 Hx Obtained From: Patient Onset/Duration: Gradual Onset, Lasting Days, Still Present Severity: Moderate Associated Signs & Symptoms: Fever, Myalgia, Cough, Sore Throat, Headache Related Hx: Possible Flu/Infectious Exposure - has flu - Allergy/Home Medications Allergies/Adverse Reactions: Allergies Allergy/AdvReac Type Severity Reaction Status Date / Time MARILYNN Inhibitors Allergy Intermediate Swelling Verified 07/15/18 07:33 Of Face,Lips,& Throat glipizide Allergy Unknown Verified 07/15/18 07:33 Reaction Details Iodinated Contrast- Oral and Allergy Anaphylatic Verified 07/15/18 07:33 IV Dye Shock lisinopril Allergy Swelling Verified 07/15/18 07:33 Of Face,Lips,& Throat pantoprazole Allergy Unknown Verified 07/15/18 07:33 Reaction Details pneumococcal vaccine Allergy Unknown Verified 07/15/18 07:33 Reaction Details Sulfa (Sulfonamide Allergy See Comment Verified 07/15/18 07:33 Antibiotics) terconazole Allergy Rash Verified 07/15/18 07:33 metformin AdvReac Diarrhea Verified 07/15/18 07:33 PMH/Surg Hx/FS Hx/Imm Hx Previously Healthy: Yes Endocrine/Hematology History: Reports: Hx Diabetes, Hx Thyroid Disease Cardiovascular History: Reports: Hx Hypertension Denies: Hx Pacemaker/ICD Respiratory History: Denies: Hx Asthma, Hx Chronic Obstructive Pulmonary Disease (COPD) GI History: Denies: Hx Ulcer History: Denies: Hx Renal Disease Musculoskeletal History: Denies: Hx Rheumatoid Arthritis, Hx Osteoporosis Sensory History: Denies: Hx Hearing Aid Psychiatric History: Denies: Hx Panic Disorder - Cancer History Hx Chemotherapy: No Hx Radiation Therapy: No - Surgical History Surgery Procedure, Year, and Place: HYSTERECTOMY 1988 ;. cholecystectomy ;. OVARIAN CYSY 1968 ;. BILATERAL CATARACTS PRIOR TO TRANSPLANTS ;. 2 CORNEAL TRANSPLANTS 2013[place] PER DR DESHPANDE ; Infectious Disease History: No Infectious Disease History: Denies: Hx Hepatitis, Hx Human Immunodeficiency Virus (HIV), History Other Infectious Disease, Traveled Outside the [place] in Last 30 Days - Family History Known Family History: Negative: Blood Disorder - NO FAM H/O DVT - Social History Lives: With Family Alcohol Use: None Hx Substance Use: No Substance Use Type: Reports: None Hx Tobacco Use: No Smoking Status (MU): Never Smoked Tobacco Review of Systems Positive: Fever, Chills, Skin Diaphoresis, Other - shaky Positive: Sore Throat Positive: Cough Positive: Myalgia Positive: Headache All Other Systems Reviewed And Are Negative: Yes Physical Exam - Summary Physical Exam Summary: Appearance: The patient is well-nourished in no acute distress and in no acute pain. Skin: The skin is warm and dry and skin color reflects adequate perfusion. HEENT: The head is normocephalic and atraumatic. The pupils are equal and reactive. The conjunctivae are clear and without drainage. There is nasal congestion present. Mouth reveals moist mucous membranes and the throat is erythematous. The external ears are intact. The ear canals are patent and without drainage. The tympanic membranes are intact. Neck: The neck is supple with full range of motion and non-tender. There are no carotid bruits. There is no neck vein distension. Respiratory: Chest is non-tender. Lungs are clear to auscultation and breath sounds are symmetrical and equal. Cardiovascular: Heart is regular rate and rhythm. There is no murmur or rub auscultated. There is no peripheral edema and pulses are symmetrical and equal. Abdomen: The abdomen is soft and non-tender. There are normal bowel sounds heard in all four quadrants and there is no organomegaly palpated. Musculoskeletal: There is no back tenderness noted. Extremities are non-tender with full range of motion. There is good capillary refill. There is no peripheral edema or calf tenderness elicited. Neurological: Patient is alert and oriented to person, place and time. The patient has symmetrical motor strength in all four extremities. Cranial nerves are grossly intact. Deep tendon reflexes are symmetrical and equal in all four extremities. Psychiatric: The patient has an appropriate affect and does not exhibit any anxiety or depression. Triage Information Reviewed: Yes Vital Signs On Initial Exam: Initial Vitals Temp Pulse Resp BP Pulse Ox 98.6 F 88 20 149/93 97 07/15/18 07:27 07/15/18 07:27 07/15/18 07:27 07/15/18 07:27 07/15/18 07:27 Vital Signs Reviewed: Yes Diagnostics - Vital Signs Vital Signs Temp Pulse Resp BP Pulse Ox 07/15/18 07:27 98.6 F 88 20 149/93 97 - Laboratory Result Diagrams: 07/15/18 08:06 07/15/18 08:06 Lab Statement: Any lab studies that have been ordered have been reviewed, and results considered in the medical decision making process. Flu Symptom Course/Dx - Course Course Of Treatment: Ms. Walden presents with URI and flulike symptomatology since . Her was diagnosed yesterday with influenza and she called her PCPs office. They gave her prescription for Tamiflu one by mouth daily for 10 days. She comes in complaining mostly of cough and anxiety about her health. She is nontoxic in appearance with stable vital signs. She was hydrated here while labs were checked which were unremarkable. She was given a guaifenesin with codeine and got significant relief for cough. She is feeling much better and I will discharge her with a prescription for symptomatically treatment and recommend that she take the Tamiflu twice a day for 5 days. - Diagnoses Provider Diagnoses: Influenza Discharge - Sign-Out/Discharge Documenting (check all that apply): Patient Departure Patient Received Moderate/Deep Sedation with Procedure: No - Discharge Plan Condition: Stable Disposition: HOME Prescriptions: Codeine Phosphate/Guaifenesin [Guaiatussin AC Liquid] 5 ml PO Q4HR #120 ml MDD 30 cc Referrals: Paty Newman MD [Primary Care Provider] - Additional Instructions: You were prescribed Tamiflu once a day for 10 days, and you need to take it twice a day for 5 days. Additionally, do not take the Amoxicillin you were given. Follow up with your primary care provider within the next 1-3 days. Return to the emergency department with any new or worsening symptoms. - Billing Disposition and Condition Condition: STABLE Disposition: Home - Attestation Statements Document Initiated by Scribe: Yes Documenting Scribe: Melanie Wilkinson Provider For Whom Scribe is Documenting (Include Credential): Theo Gonzalez MD. Scribe Attestation: I, Melanie Wilkinson, scribed for Theo Gonzalez MD. on 07/15/18 at 1124. Scribe Documentation Reviewed: Yes Provider Attestation: The documentation as recorded by the scribe, Melanie Wilkinson accurately reflects the service I personally performed and the decisions made by me, Theo Gonzalez MD. Status of Scribe Document: Viewed
[2018-07-15] MEDS ORDERED: NS 0.9% 1000 ML** 1,000 ML IV ONE (08:00)
[2018-07-15] MEDS ORDERED: guaiFENesin/CODIEN 100MG-10MG* 5 ML UDC PO ONE (08:01)
[2018-07-15 08:19] LABS: ABS Eosinophils 0.1 10^3/ul (0-0.6); ABS Lymphocytes 0.3 10^3/ul (1.0-4.8); ABS Monocytes 0.4 10^3/ul (0-0.8); ABS Neutrophils 5.9 10^3/ul (1.5-7.7); Eosinophil % 1.4 %; Hematocrit 41 % (35-47); Hemoglobin 13.7 g/dL (12.0-16.0); Lymphocyte % 4.3 %; Mean Corpuscular HGB Conc 34 g/dL (31-36); Mean Corpuscular Hemoglobin 30 pg (27-31); Mean Corpuscular Volume 87 fL (80-97); Mean Platelet Volume 7.1 fL (7.4-10.4); Nucleated Red Blood Cells % 0.2; Platelet Count 120 10^3/uL (150-450); Red Blood Count 4.64 10^6 /uL (3.70-4.87); Red Cell Distribution Width 14 % (10.5-15); White Blood Count 6.8 10^3/uL (3.5-10.8)
[2018-07-15 08:38] LABS: Albumin 3.5 g/dL (3.2-5.2); Albumin/Globulin Ratio 1.3 (1-3); C Reactive Protein 45.35 mg/L (<8.01); Calcium 8.5 mg/dL (8.6-10.3); EGFR Non-African American 74.4 (>60); Globulin 2.8 g/dL (2-4); Potassium 3.2 mmol/L (3.5-5.0); Total Bilirubin 0.4 mg/dL (0.2-1.0); Total Protein 6.3 g/dL (6.4-8.9)
[2018-07-15 10:12] VITALS: BP 146/81
== END 2018-07-15 10:12 | disposition home or self-care (01) ==
LOC: ED 07:23
DX: J11.1 Influenza due to unidentified influenza virus with other respiratory manifestations (principal); E11.9 Type 2 diabetes mellitus without complications; I10 Essential (primary) hypertension; Z88.2 Allergy status to sulfonamides; Z88.7 Allergy status to serum and vaccine; Z88.8 Allergy status to other drugs, medicaments and biological substances; Z91.041 Radiographic dye allergy status
CPT/HCPCS: 36415; 80053; 85025; 86140; 96360; 96361; 99283; A9270-GY

== ENCOUNTER 2018-08-22 05:22 | Emergency (ER) | payer MEDICARE ==
[2018-08-22] MEDS ORDERED: Vancomycin(*) 1,000 MG in NS 0.9% 250 ML* 250 ML IVPB ONE (05:41)
[2018-08-22] MEDS ORDERED: NS 0.9% 1000 ML** 2,000 ML IV ONE (05:41)
[2018-08-22] MEDS ORDERED: Acetaminophen TAB* 325 MG PO ONE (05:41)
[2018-08-22] MEDS ORDERED: Ketorolac INJ* 30 MG/ML 1 ML VIAL IV PUSH ONE (05:43)
--- NOTE | 2018-08-22 05:47 | ED ---
Abdominal Pain/Female - HPI Summary HPI Summary: This pt is an 78 y/o female presenting to [facility] via EMS for abd pain, nausea, dysuria and fever since last night. Pt reports she has had a UTI for about 1 month and has been given different antibiotics to treat it. Pt went through 2 rounds of different antibiotics. She was then given Ciprofloxacin which she took for 6 days and finished them on 08/17/18. During the next few days after, her UTI symptoms came back and was placed on Amoxicillin. The first and only dose of Amoxicillin she took was yesterday at 15:00. At around 19:30 last night pt began to having abd pain and nausea. This morning at around 03:00 she felt like she was burning with a fever. Her symptoms include fever, abd pain, upper back pain, nausea, dysuria. Denies chest pain, SOB. Pt is allergic to dye. - History of Current Complaint Chief Complaint: EDAbdPain Stated Complaint: ABD PAIN/NAUSEA PER EMS Hx Obtained From: Patient Onset/Duration: Lasting Hours, Still Present Timing: Hours Severity Currently: Moderate Pain Intensity: 0 Pain Scale Used: 0-10 Numeric Location: Diffuse Radiates: No Aggravating Factor(s): Nothing Alleviating Factor(s): Nothing Associated Signs and Symptoms: Positive: Fever, Back Pain - upper, Urinary Symptoms - dysuria, Nausea. Negative: Chest Pain Allergies/Adverse Reactions: Allergies Allergy/AdvReac Type Severity Reaction Status Date / Time MARILYNN Inhibitors Allergy Intermediate Swelling Verified 07/15/18 07:33 Of Face,Lips,& Throat glipizide Allergy Unknown Verified 07/15/18 07:33 Reaction Details Iodinated Contrast- Oral and Allergy Anaphylatic Verified 07/15/18 07:33 IV Dye Shock lisinopril Allergy Swelling Verified 07/15/18 07:33 Of Face,Lips,& Throat pantoprazole Allergy Unknown Verified 07/15/18 07:33 Reaction Details pneumococcal vaccine Allergy Unknown Verified 07/15/18 07:33 Reaction Details Sulfa (Sulfonamide Allergy See Comment Verified 07/15/18 07:33 Antibiotics) terconazole Allergy Rash Verified 07/15/18 07:33 metformin AdvReac Diarrhea Verified 07/15/18 07:33 Home Medications: Home Medications Nystatin CREAM* [Nystatin Cream*] 1 applic TOPICAL TID PRN 08/22/18 [History Confirmed 08/22/18] PMH/Surg Hx/FS Hx/Imm Hx Endocrine/Hematology History: Reports: Hx Diabetes, Hx Thyroid Disease Cardiovascular History: Reports: Hx Hypertension Denies: Hx Pacemaker/ICD Respiratory History: Denies: Hx Asthma, Hx Chronic Obstructive Pulmonary Disease (COPD) GI History: Denies: Hx Ulcer History: Denies: Hx Renal Disease Musculoskeletal History: Denies: Hx Rheumatoid Arthritis, Hx Osteoporosis Sensory History: Denies: Hx Hearing Aid Psychiatric History: Denies: Hx Panic Disorder - Cancer History Hx Chemotherapy: No Hx Radiation Therapy: No - Surgical History Surgery Procedure, Year, and Place: HYSTERECTOMY 1988 ;. cholecystectomy ;. OVARIAN CYSY 1968 ;. BILATERAL CATARACTS PRIOR TO TRANSPLANTS ;. 2 CORNEAL TRANSPLANTS 2013-[place] PER DR DESHPANDE ; - Immunization History Immunizations Up to Date: Yes Infectious Disease History: No Infectious Disease History: Denies: Hx Hepatitis, Hx Human Immunodeficiency Virus (HIV), History Other Infectious Disease, Traveled Outside the [place] in Last 30 Days - Family History Known Family History: Negative: Blood Disorder - NO FAM H/O DVT - Social History Alcohol Use: None Hx Substance Use: No Substance Use Type: Reports: None Hx Tobacco Use: No Smoking Status (MU): Never Smoked Tobacco Review of Systems Positive: Fever Negative: Chest Pain Negative: Shortness Of Breath Positive: Abdominal Pain, Nausea Positive: dysuria Musculoskeletal: Other - POSITIVE: upper back pain All Other Systems Reviewed And Are Negative: Yes Physical Exam - Summary Physical Exam Summary: VITAL SIGNS: Reviewed. GENERAL: Patient is a well-developed and nourished female who is lying comfortable in the stretcher. Patient is not in any acute respiratory distress. HEAD AND FACE: No signs of trauma. No ecchymosis, hematomas or skull depressions. No sinus tenderness. EYES: PERRLA, EOMI x 2, No injected conjunctiva, no nystagmus. EARS: Hearing grossly intact. Ear canals and tympanic membranes are within normal limits. MOUTH: Oropharynx within normal limits. NECK: Supple, trachea is midline, no adenopathy, no JVD, no carotid bruit, no c- spine tenderness, neck with full ROM. CHEST: Symmetric, no tenderness at palpation LUNGS: Clear to auscultation bilaterally. No wheezing or crackles. CVS: Mild tachycardic rate and regular rhythm, S1 and S2 present, no murmurs or gallops appreciated. ABDOMEN: Soft, non-tender. No signs of distention. No rebound no guarding, and no masses palpated. Bowel sounds are normal. EXTREMITIES: FROM in all major joints, no edema, no cyanosis or clubbing. NEURO: Alert and oriented x 3. No acute neurological deficits. Speech is normal and follows commands. SKIN: Dry and warm Triage Information Reviewed: Yes Vital Signs On Initial Exam: Initial Vitals Temp Pulse Resp BP Pulse Ox 99.6 F 103 18 154/79 95 08/22/18 05:28 08/22/18 05:28 08/22/18 05:28 08/22/18 05:28 08/22/18 05:28 Vital Signs Reviewed: Yes Diagnostics - Vital Signs Vital Signs Temp Pulse Resp BP Pulse Ox 08/22/18 05:28 99.6 F 103 18 154/79 95 - Laboratory Result Diagrams: 08/22/18 05:58 Lab Statement: Any lab studies that have been ordered have been reviewed, and results considered in the medical decision making process. - EKG 05:51 Cardiac Rate: NL - at 95 bpm EKG Rhythm: Sinus Rhythm Summary of EKG Findings: Low voltage. Nonspecific T wave changes. Abdominal Pain Fem Course/Dx - Course Course Of Treatment: Pt is an 78 y/o female who presents for abd pain, nausea, dysuria and fever since last night. Pt reports she has had a UTI for about 1 month and has been given different antibiotics as an outpatient to treat it. She was then given Ciprofloxacin which she took for 6 days and finished them on 08/17/18. During the next few days after, her UTI symptoms came back and was placed on Amoxicillin. The first and only dose of Amoxicillin she took was yesterday at 15:00. At around 19:30 last night pt began to having abd pain and nausea. This morning at around 03:00 she felt like she was burning with a fever. Her symptoms include fever, abd pain, upper back pain, nausea, dysuria. Lab results remarkable for WBC of 16.5, glucose of 242, AST of 441, ALT of 227, CRP of 65.88. UA consistent with UTI. In the ED course the pt was given IV fluids, Tylenol, Toradol, Vancomycin, Zosyn. CT of the abdomen/pelvis was ordered and is pending. Patient will need to be admitted for urosepsis. Pt will be signed out to Dr. Whitehead, pending admission, awaiting labs and CT. - Diagnoses Provider Diagnoses: Sepsis secondary to UTI Discharge - Sign-Out/Discharge Documenting (check all that apply): Sign-Out Patient Signing out patient TO: Owen Whitehead - pending admission, awaiting labs and CT Patient Received Moderate/Deep Sedation with Procedure: No - Discharge Plan Condition: Stable Referrals: Paty Newman MD [Primary Care Provider] - - Attestation Statements Document Initiated by Scribe: Yes Documenting Scribe: Kiersten Cerrato Provider For Whom Scribe is Documenting (Include Credential): Elena Kong MD Scribe Attestation: IKiersten, scribed for Elena Kong MD on 08/22/18 at 0624. Status of Scribe Document: Ready
[2018-08-22] MEDS: Piperacillin/Tazobac ADVAN(*) 3.375 GM in NS 0.9% 100 ML* 100 ML IVPB ONE ×2 (06:06→06:12)
[2018-08-22 06:08] LABS: Hematocrit 39 % (35-47); Hemoglobin 13.7 g/dL (12.0-16.0); Mean Corpuscular HGB Conc 35 g/dL (31-36); Mean Corpuscular Hemoglobin 31 pg (27-31); Mean Corpuscular Volume 88 fL (80-97); Platelet Count 159 10^3/uL (150-450); Red Blood Count 4.45 10^6 /uL (3.70-4.87); Red Cell Distribution Width 14 % (10-15); White Blood Count 16.5 10^3/uL (3.5-10.8)
[2018-08-22 06:16] LABS: Urine Appearance Clear; Urine Bacteria Absent (Absent); Urine Bilirubin Negative (Negative); Urine Blood 2+ (Negative); Urine Color Yellow; Urine Glucose 3+(>=500 mg/dL) (Negative); Urine Ketones Trace (Negative); Urine Nitrite Negative (Negative); Urine Protein Negative (Negative); Urine Red Blood Cell 3+(>10/hpf) (Absent); Urine Specific Gravity 1.016 (1.010-1.030); Urine Squamous Epithelial Cell Present (Absent); Urine Urobilinogen Negative (Negative); Urine White Blood Cell 1+(6-10/hpf) (Absent)
[2018-08-22 06:24] LABS: Activated Partial Thrombo Time 28.8 seconds (26.0-38.0); INR 1.05 (0.82-1.09)
[2018-08-22 06:25] LABS: Albumin 3.8 g/dL (3.2-5.2); Albumin/Globulin Ratio 1.3 (1-3); BUN/Creatinine Ratio 16.9 (8-20); C Reactive Protein 65.88 mg/L (<8.01); Calcium 9.1 mg/dL (8.6-10.3); EGFR African American 95.8 (>60); EGFR Non-African American 79.2 (>60); Potassium 3.3 mmol/L (3.5-5.0); Total Bilirubin 1.3 mg/dL (0.2-1.0); Total Protein 6.8 g/dL (6.4-8.9)
[2018-08-22] MEDS ORDERED: Potassium Chlor TAB* 20 MEQ TAB.ER PO ONE (06:45)
[2018-08-22] MEDS ORDERED: Vancomycin(*) 1,000 MG BAG/ADDV IVPB ONE (06:57)
[2018-08-22 07:14] LABS: ABS Lymphocytes 0.2 10^3/ul (1.0-4.8); ABS Monocytes 0.6 10^3/ul (0-0.8); ABS Neutrophils 15.6 10^3/ul (1.5-7.7); Eosinophil % 0.1 %; Lymphocyte % 1.4 %; Nucleated Red Blood Cells % 0.1
--- NOTE | 2018-08-22 07:33 | ED ---
Progress - Progress Note Progress Note: The pt was a sign out from Dr Elena Kong MD to Dr Owen Whitehead MD at change of shift at 0700 on 08/22/18, pending labs, Abd/Pel CT, CXR, Abd US and admission. We went in for re-evaluation after shift change at 0718. Pt reported that she had a fever and took Tylenol. A physical exam was performed. VITAL SIGNS: Reviewed. GENERAL: Patient is a well-developed and nourished female who is lying comfortable in the stretcher. Patient is not in any acute respiratory distress. HEAD AND FACE: Normocephalic and atraumatic. EYES: PERRLA, EOMI x 2, No injected conjunctiva. EARS: Hearing grossly intact. Ear canals and tympanic membranes are WNL. MOUTH: Oropharynx within normal limits. NECK: Supple, trachea is midline, no adenopathy, no JVD. CHEST: Symmetric, no tenderness at palpation LUNGS: Clear to auscultation bilaterally. No wheezing or crackles. CVS: RRR, S1 and S2 present, no murmurs or gallops appreciated. ABDOMEN: Soft, non-tender. No signs of distention. Positive bowel sounds. No rebound no guarding, and no masses palpated. No abdominal bruit or pulsations. EXTREMITIES: FROM in all major joints, no edema, no cyanosis or clubbing. NEURO: Alert and oriented x 3. No acute neurological deficits. Speech is normal. SKIN: Dry and warm. Discussed admission and results that are being waited on with pt. Pt is agreeable with plan. Blood work obtained. The abnormal values include MPV of 7.0, Absolute Neuts of 15.6, Absolute Lymphs of 0.2, Potassium of 3.3, Glucose of 242, Total Bilirubin of 1.30, AST of 442, ALT of 227, Alkaline Phosphate of 138, C-Reactive Protein of 65.88, and Amylase of 16. CXR reveals impression, no evidence of active cardiopulmonary disease. ABD/Pel CT reveals impression, negative for urolithiasis or hydronephrosis and severe diverticulosis of the sigmoid colon without findings of acute diverticulitis. Abd US reveals impression, hepatomegaly with fatty infiltration of the liver. At 0838, discussed pt care with Dr. Mcwilliams, who accepted pt for admission. - Results/Orders Results/Orders: CXR reveals impression: No evidence of active cardiopulmonary disease. ED physician has reviewed this report. ABD/Pel CT reveals impression: Negative for urolithiasis or hydronephrosis. Severe diverticulosis of the sigmoid colon without findings of acute diverticulitis. ED physician has reviewed this report. ABD US reveals impression: Hepatomegaly with fatty infiltration of the liver. ED physician has reviewed this report. Re-Evaluation - Re-Evaluation First Eval Re-Evaluation Time: 07:18 Comment: We went in for re-evaluation after shift change. Pt reported that she had a fever and took Tylenol. Pt had a nml physical exam. Discussed admission and results that are being waited on with pt. Pt is agreeable with plan. Course/Dx - Course Course Of Treatment: This patient was signed out by Dr. Kong at shift change. He reports that the patient has a UTI/pyelonephritis, with fever, chills and not responding to by mouth antibiotics. The patient was started on vancomycin and Zosyn. We are waiting for their abdominal/pelvic CT results as well as her right upper quadrant ultrasound. He also recommended for the patient to be admitted to the hospitalist for further workup and management. Chest x-ray impression: No evidence for acute cardiopulmonary disease. Abdominal/pelvic CT impression: Negative for urolithiasis or hydronephrosis. Severe diverticulosis of the sigmoid colon without findings of acute diverticulitis. Abd US impression : hepatomegaly with fatty infiltration of the liver. I discussed my physical exam, findings and test results with Dr. Oj MD from the hospitalist services and she agrees to admit patient to her services. Patient is hemodynamically stable alert and oriented x 3. ADDENDUM: After Dr. Mcwilliams saw, examined and assess the patient for admission, and will discharge the patient home. She recommends LFT labwork with follow up with Dr. Newman in 3 days. She will be discharged home with a dx of constipation and abd pain. She does not have a UTI , per Dr. Mcwilliams. Patient is agreeable with this plan. - Diagnoses Provider Diagnoses: Abdominal pain, Constipation - Provider Notifications Discussed Care Of Patient With: Jenifer Mcwilliams - Hospitalist Time Discussed With Above Provider: 08:38 Instructed by Provider To: Other - Discussed pt care with Dr. Mcwilliams, who accepted pt for admission. Dr. Mcwilliams come to see the patient for admission in the ED. At 1100, Dr. Mcwilliams reports that the patient declines admission. She recommends follow up with PCP for LFT tests. Discharge - Sign-Out/Discharge Documenting (check all that apply): Patient Departure - Discharge, Receiving Sign-Out Receiving patient FROM: Elena Kong - The pt was a sign out from Dr Elena Kong MD to Dr Owen Whitehead MD at change of shift at 0700 on 08/22/18, pending labs , Abd/Pel CT, CXR, Abd US and admission. Patient Received Moderate/Deep Sedation with Procedure: No - Discharge Plan Condition: Stable Disposition: HOME Patient Education Materials: Constipation (DC), Abdominal Pain (ED) Referrals: Paty Newman MD [Primary Care Provider] - 3 Days Additional Instructions: Follow up with Dr. Newman in 2-3 days. RETURN TO THE EMERGENCY DEPARTMENT FOR ANY NEW OR WORSENING SYMPTOMS. - Billing Disposition and Condition Condition: STABLE Disposition: Home - Attestation Statements Document Initiated by Annee: Yes Documenting Scribe: Leola Choi Provider For Whom Sofie is Documenting (Include Credential): Dr. Owen Whitehead MD Scribe Attestation: Leola Puente, scribed for Dr. Owen Whitehead MD on 08/23/18 at 0702. Scribe Documentation Reviewed: Yes Provider Attestation: The documentation as recorded by the Leola morataya accurately reflects the service I personally performed and the decisions made by me, Dr. Owen Whitehead MD Status of Scribe Document: Viewed
[2018-08-22 11:37] VITALS: BP 142/85
--- NOTE | 2018-08-22 13:09 | CONS ---
CC: Dr. Whitehead; Dr. Newman; Dr. Barth; Dr. Rodriguez * CONSULTATION REPORT: DATE OF CONSULT: 08/22/18 - EMERGENCY DEPT REQUESTING PHYSICIAN: Dr. Whitehead from emergency department. PRIMARY CARE PROVIDER: Dr. Newman. CLINICAL OPERATIONS LEADER: Dr. Barth. CONSULTING PROPERTY MANAGER: Dr. Rodriguez. REASON FOR CONSULT: Possibility of admission for abdominal pain. CHIEF COMPLAINT: Abdominal pain and dry heaving. HISTORY OF PRESENT ILLNESS: Yeny Walden is an 78-year-old female who has history of polymyalgia rheumatica and diabetes. The patient stated that she had been under a significant amount of stress since her was in the hospital off and on and he just returned home yesterday. She also stated that she had been having problems with recurrent UTIs and last time she was treated with 7 days of ciprofloxacin. After her medication was discontinued, she felt some discomfort in the urethral area and when she called her primary care provider, she was prescribed amoxicillin. She took the first dose yesterday in the afternoon. She ate dinner and she felt well, but at 3 a.m., she started having epigastric pain and dry heaving. That lasted approximately 2 hours and resolved spontaneously. When I am seeing the patient today in the emergency department room, the patient has just finished her pancake breakfast. She stated that she is no longer nauseous and her abdominal pain resolved. Her liver function tests were elevated and Dr. Whitehead asked me to see this patient for possibility of admission. The patient herself wishes not to be admitted. She stated that she wants to just go home and take care of her . Her symptoms resolved altogether. PAST MEDICAL HISTORY: 1. Diabetes type 2. 2. Hypothyroidism. 3. Hypertension. 4. Gastroesophageal reflux disease. 5. History of polymyalgia rheumatica. PAST SURGICAL HISTORY: Status post cholecystectomy over 30 years ago. ALLERGIES: The patient has angioedema to LISINOPRIL. She is also allergic to GLIPIZIDE, IODINATED CONTRAST DYE. She also has listed METFORMIN, TERCONAZOLE, PNEUMOCOCCAL VACCINE, PANTOPRAZOLE, and GLIPIZIDE as well as SULFA ANTIBIOTICS on her allergy list. In the past, she was noted to be allergic to amoxicillin several years ago in her primary care provider's note, but she is not aware of being allergic to amoxicillin and she stated that she took it once several years ago and she had no reaction to it. FAMILY HISTORY: Reviewed and noncontributory. SOCIAL HISTORY: The patient lives with her . She is fully independent with her activities of daily living. She denies any smoking or drug use. She drinks alcohol rarely. REVIEW OF SYSTEMS: Please see history of present illness. All the remaining 12 systems were reviewed with the patient and were, otherwise, negative. PHYSICAL EXAM: Blood pressure of 152/70, heart rate of 79 and regular, respiratory rate 28, oxygen saturation 92% on room air, temperature of 97.1. General: The patient is a pleasant 78-year-old female who is in no acute distress. Alert, awake, and oriented x3. HEENT: Head: Atraumatic, normocephalic. Eyes: Pupils are equal and reactive to light and accommodation. Oropharynx clear. Mucosa moist. Neck: Supple. No JVD. No bruits bilaterally. Cardiovascular: Regular rate and rhythm. No murmur. Respiratory: Clear to auscultation bilaterally. Abdomen: Soft, nontender. Bowel sounds are present in all 4 quadrants. Extremities: There is no edema. Pulses are +2 bilaterally. No clubbing or cyanosis. On evaluation of the skin , no ecchymotic areas or rashes noted. Neuro Evaluation: Cranial nerves II through XII grossly intact. Motor strength is 5/5 bilaterally. DIAGNOSTIC STUDIES/LAB DATA: Laboratory data showed sodium of 139, potassium 3.3, chloride 105, carbon dioxide 23, BUN 12, creatinine 0.71. Liver function tests showed total bilirubin of 1.3, AST of 141, ALT of 227, alkaline phosphatase of 138. The patient's C-reactive protein was elevated at 65. White blood cell count of 16.5, hemoglobin of 13.7, hematocrit of 39, and platelets of 159. Urinalysis showed trace ketones, +2 blood, +1 white blood cells, +3 rbc's. No bacteria, no esterase, no nitrites. CT of abdomen and pelvis, impression: "Negative for urolithiasis or hydronephrosis. Severe diverticulosis of the sigmoid colon without findings of acute diverticulitis." Right upper quadrant abdominal ultrasound done in the ED, impression: "Hepatomegaly with fatty infiltration of the liver. Common bile duct measured 0.8 cm. The patient is status post cholecystectomy. There was no intrahepatic biliary dilatation." ASSESSMENT AND PLAN: Abdominal pain and heaving. The patient's symptoms are entirely resolved. She is able to eat her breakfast without any problems and she wishes to go home. Her LFTs are elevated. At this point, her symptoms on the differential may be related either to allergy to amoxicillin versus passing common bile duct stone. At this point, the patient does not have any evidence of common bile duct obstruction or biliary dilatation. She is nontender on her evaluation. I suspect that whether it is one of those differentials, she still could potentially go home safely and follow up with her primary care provider. At this point, I recommended for the patient to follow up with her primary care provider within the next week and have liver function tests obtained on 08/25/18. The patient stated that she has Dr. Rodriguez's appointment on Saturday and an appointment with Dr. Barth the day after. She should also see Dr. Newman and she is aware of that. I asked for the patient to come back to the hospital if her symptoms recurred. At this point, she does have rbc's on her urinalysis , but no evidence of infection with esterase, nitrites, and bacteria negative. Urine cultures were obtained anyway and she can follow up with that with her primary care provider. At this point, I advised for the patient not to continue amoxicillin. It is also possible that she passed a ureteral stone. It is recommended for the patient to follow up with her primary care provider in regards to abnormal urinalysis. She likely would benefit from a urology referral if she continues to have urinary symptoms in the future. The above-mentioned was discussed with Dr. Whitehead. The patient is going to be discharged from the emergency department as she wishes to follow up with her doctors next week. The patient was given a requisition for liver function tests and complete metabolic panel on 08/25/18. Thank you very much for allowing me to see your patient in consultation. [id number]/[facility] #: [id number] KATERINA
== END 2018-08-22 11:36 | disposition home or self-care (01) ==
LOC: ED 05:22
DX: A41.9 Sepsis, unspecified organism (principal); N39.0 Urinary tract infection, site not specified; K59.00 Constipation, unspecified; E11.9 Type 2 diabetes mellitus without complications; I10 Essential (primary) hypertension; K76.0 Fatty (change of) liver, not elsewhere classified
CPT/HCPCS: 36415; 71045; 74176; 76705; 80053; 81003; 81015; 82150; 83605; 83690; 85025; 85610; 85730; 86140; 87040; 87086; 93005; 96361; 96365; 96366; 96375; 99284; A9270-GY; J1885; J2543; J3370